=== PATIENT | female | born 1955 | race Caucasian/White ===

== ENCOUNTER 2020-04-01 13:37 | Outpatient (REF) | payer BC, SELFPAY ==
[2020-04-01 15:40] LABS: TSH reflex Free T4 0.17 mIU/mL (0.32-4.0)
[2020-04-01 16:39] LABS: Free T4 (Free Thyroxine) 1.54 ng/dL (0.71-1.85)
== END 2020-04-01 13:38 | disposition home or self-care (01) ==
LOC: HO.LAB 13:37
PROVIDERS: PCP Physician Assistant; Visit Provider Physician Assistant
DX: E03.9 Hypothyroidism, unspecified (principal)
CPT/HCPCS: 84439; 84443

== ENCOUNTER 2020-06-29 11:09 | Inpatient (IN) | payer BC, SELFPAY ==
[2020-06-29] VITALS (12 sets, daily range): BP systolic 73–135; BP diastolic 50–86; PULSE 87–142; RESP 16–28; TEMP 36.6–37; O2SAT 93–99; BMI 32.4
--- NOTE | ~2020-06-29 | US_ITS ---
EXAMINATION: ULTRASOUND-GUIDED DIAGNOSTIC PARACENTESIS. CLINICAL INFORMATION: Diffuse ascites, bilateral pleural effusion. Question cirrhosis. Acute abdominal pain. Evaluate for subacute bacterial peritonitis COMPARISON: Chest CT performed earlier today at 2:00 PM. TECHNIQUE: Following explaining ultrasound-guided paracentesis procedure, benefits and risk, a written consent was obtained. Patient was placed supine on ICU bed and preliminary ultrasound was obtained in the right upper and lower quadrant regions. After observing smaller fluid in the right perihepatic space, a marker was placed in the skin. The marked area was cleaned and draped in usual cell manner. 1% lidocaine was injected puncture site. A 4 [place] Hypertension Diagnosticseh catheter was inserted through a small skin incision to the right perihepatic space and approximately 15 mL of clear ascites fluid was obtained with some blood clots. After no more fluid return, catheter was removed and complete hemostasis achieved at puncture site. Sterile dressing applied postprocedure. Patient tolerated procedure extremely well. FINDINGS: On preliminary ultrasound imaging there is a small right perihepatic fluid collection similar to earlier CT exam. Approximately 15 mL of clear CSF fluid was collected and sent to lab as per referring physician's orders. US/US paracentesis abd w/image IMPRESSION: Successful ultrasound-guided diagnostic paracentesis performed without immediate complications.
--- NOTE | ~2020-06-29 | CT_ITS ---
EXAMINATION: CT CHEST WITHOUT CONTRAST CT ABDOMEN AND PELVIS WITHOUT CONTRAST CLINICAL INFORMATION: Rule out pneumonia. Septic shock. COMPARISON: Radiograph from earlier today. CT of the abdomen and pelvis 06/25/2016. TECHNIQUE: Multidetector volumetric imaging was performed through the chest, abdomen and pelvis without contrast. Sagittal and coronal reformatted images were obtained on the technologist's workstation. Axial MIP volume rendering provided. This CT examination was performed using dose optimization techniques as appropriate, variously including the following: *Automated exposure control *Adjustment of mA and/or kV according to patient size (this includes techniques or standardized protocols for targeted exams where dose is matched to indication/reason for exam; i.e. extremities or head) *Use of iterative reconstruction technique DLP: 1805 mGy-cm. FINDINGS: CHEST: Lungs: The central airways are patent. Moderate left and small right pleural effusions are present. Compressive atelectasis of much of the left lower lobe. Right basilar subsegmental atelectasis. Prominence of the central vasculature. Mild subpleural reticulation. No pneumothorax. Mediastinum: Enlarged heart. Radiopaque hardware identified in the region of the left atrial appendage. No pericardial effusion. No mediastinal lymphadenopathy seen. Chest Wall/Axilla: No lymphadenopathy. No chest wall mass. Questionable area of fat necrosis in the right breast soft tissues. This is similar to prior. ABDOMEN/PELVIS: Liver, Gallbladder, Biliary Tree: Somewhat small size of the liver. Suggestion of subtle nodular Contour. There is small volume of ascites. No focal hepatic mass. Cholecystectomy. No biliary ductal dilatation. Pancreas: Unremarkable. Spleen: Unremarkable. Adrenal Glands: Unremarkable. Kidneys and Ureters: The kidneys are normal in size, shape, and attenuation. No hydronephrosis or hydroureter. Right lower pole 0.3 cm calculus is 9 cm from the posterior axillary line. Bladder: Decompressed with a Gómez catheter in place. Gastrointestinal Tract: The stomach is unremarkable. Normal caliber small bowel. There is no obstruction. Colonic diverticulosis is present without diverticulitis. No free intraperitoneal air. The appendix is unremarkable. Abdominal Wall: Prior ventral hernia repair. Rectus diastases. Diffuse anasarca. Lymphovascular Structures: Lymph nodes: Normal. Vascular: Normal caliber aorta with mild atherosclerotic calcification. Pelvic Viscera: The uterus and adnexa are unremarkable. OSSEOUS STRUCTURES: No acute or suspicious osseous abnormality. Degenerative changes throughout the spine. Degenerative changes noted in the hips. CT/CT abdomen pelvis wo con IMPRESSION: 1. Moderate left and small right pleural effusions. Associated atelectasis. No separate consolidation. There is central vascular prominence which could be associated with mild edema. 2. Small volume of ascites with diffuse anasarca. 3. Questionable nodularity of the liver contour. Correlate for cirrhosis. No suspicious lesions. 4. Nonobstructing right lower pole renal calculus.
--- NOTE | ~2020-06-29 | XR_ITS ---
EXAMINATION: CHEST 1 VIEW CLINICAL INFORMATION: Hypoxemia. COMPARISON: Multiple prior exams are reviewed. The most recent is from 07/03/2020. TECHNIQUE: An AP view of the chest is provided. FINDINGS: The cardiac silhouette is enlarged, though stable. Central venous lines are in unchanged position. There is a persistent retrocardiac infiltrate. There is superimposed mild interstitial prominence throughout both lungs, slightly decreased from prior exam. There is likely a small left pleural effusion. The osseous structures are stable. Surgical clips are identified within the right upper quadrant. XR/XR chest 1V IMPRESSION: Persistent retrocardiac airspace disease. Persistent left pleural effusion. Interval increase in mild interstitial prominence throughout both lungs.
--- NOTE | ~2020-06-29 | XR_ITS ---
EXAMINATION: XR CHEST CLINICAL INFORMATION: Line placement COMPARISON: 06/29/2020 TECHNIQUE: Frontal view of the chest was obtained. FINDINGS: Left subclavian central venous catheter is now in place terminating over the lower SVC. Lungs are well expanded. Increased small left pleural effusion. Left basilar opacity. No pneumothorax. No edema. The cardiomediastinal silhouette remains prominent. XR/XR chest 1V IMPRESSION: There is a new left subclavian central venous catheter terminating over the lower SVC. No pneumothorax. Increased small left pleural effusion with basilar opacity which could represent atelectasis or pneumonia.
--- NOTE | ~2020-06-29 | NM_ITS ---
EXAMINATION: NM LUNG IMAGE PERFUSION CLINICAL INFORMATION: Short of breath. COMPARISON: CT chest to 421 TECHNIQUE: Following intravenous administration of 3.2 mCi of technetium 99 and MAA, imaging of both lungs are obtained in multiple projections. Ventilation study was not performed. FINDINGS: There is normal perfusion seen to all segments of both lobes. No segmental, subsegmental defects seen. NM/NM pul perfusion IMPRESSION: Normal perfusion scan. Results were discussed with ICU Dr. Palafox by phone at 5:04 PM
--- NOTE | ~2020-06-29 | US_ITS ---
EXAMINATION: US VENOUS ULTRASOUND WITH DOPPLER LOWER EXTREMITY, BILATERAL CLINICAL INFORMATION: Edema. COMPARISON: Venous ultrasound lower extremities bilateral 12/11/2016. TECHNIQUE: Ultrasound of the deep veins is performed from the hip to the calf with compression sonography and color and pulse Doppler assessment. Spectral analysis with color-flow imaging is performed. FINDINGS: Edema limits study. Limited compression of vessels. RIGHT: Limited visualization of vessels. No obvious thrombus seen from groin through the calf. Biphasic vascular flow. There is a popliteal cyst measuring 2.7 x 1 x 1.3 cm. LEFT: Limited visualization of vessels. No obvious thrombus seen from groin through the calf. Biphasic vascular flow. There is no significant popliteal fossa cyst. If the patient's symptoms persist, followup ultrasound in 5 days 7 days might be of value to exclude proximal propagation from a non-visualized calf vein. US/US venous duplex LE BI IMPRESSION: Exam limited by edema. No DVT demonstrated in the bilateral lower extremity.
--- NOTE | ~2020-06-29 | XR_ITS ---
EXAMINATION: PORTABLE CHEST 1 VIEW CLINICAL INFORMATION: R IJ HD CATH PLACEMENT . COMPARISON: 07/03/2020. TECHNIQUE: Portable frontal view of the chest was obtained. FINDINGS: The lungs are hypoexpanded with basilar markings suggesting atelectasis. Small layering left effusion suspected as well. No overt edema. No pneumothorax. New right IJ central venous catheter tip near the cavoatrial junction. Left subclavian central venous catheter tip also near the cavoatrial junction. No acute bony abnormality. XR/XR chest 1V IMPRESSION: New right IJ central venous catheter tip near the expected cavoatrial junction. No pneumothorax. Span lungs with basilar atelectatic changes and small layering left effusion.
--- NOTE | 2020-06-29 11:42 | ECG_ITS ---
Test Reason : ATRIAL FIBRILLATION Blood Pressure : / mmHG Vent. Rate : 129 BPM Atrial Rate : 131 BPM P-R Int : 000 ms QRS Dur : 088 ms QT Int : 398 ms P-R-T Axes : 000 -58 -06 degrees QTc Int : 583 ms Atrial fibrillation Left axis deviation Inferior infarct (cited on or before 30-SEP-2017) Possible Anterior infarct (cited on or before 30-SEP-2017) Abnormal ECG When compared with ECG of 26-FEB-2019 20:20, Afib present Premature ventricular complexes present Referred By: Deann Cramer Electronically Signed By:Jhonny Kaur
--- NOTE | 2020-06-29 11:42 | XR_ITS ---
EXAMINATION: XR CHEST CLINICAL INFORMATION: Cough. COMPARISON: Chest 02/26/2019 TECHNIQUE: Frontal view of the chest was obtained. FINDINGS: The lungs are well-expanded bilateral perihilar patchy opacities suggestive of developing infiltrates. No consolidation seen. There is no pleural effusion. The heart size is enlarged. Perivascular is normal. There is moderate spondylosis dorsal spine. XR/XR chest 1V IMPRESSION: Diffuse bilateral patchy groundglass opacities suspicious of developing infiltrates.
--- NOTE | 2020-06-29 11:46 | ED_ITS ---
HPI - General Adult General Chief complaint: Arrhythmia/Palpitations Stated complaint: Rapid A-Fib Time Seen by Provider: 06/29/20 11:41 Source: patient and EMS Mode of arrival: EMS Limitations: no limitations History of Present Illness HPI narrative: 65 years old history of atrial fibrillation controlled with metop rolol 100 mg daily by mouth, patient also have which man device placed in her in the left atrium no anticoagulation therapy, patient has been coughing for the past 2 weeks, patient went to walk-in urgent care and she was advised to come here because she was found to have rapid atrial fibrillation, patient admitted that she did not take her medication this morning. Patient has been coughing for 2 weeks patient usually around this time a year gets bronchitis. Patient has no chest pain, no shortness of breath, not feeling palpitation. Related Data Home Medications Medication Instructions Recorded Confirmed albuterol sulfate 90 mcg/actuation 2 puff INHALATION Q6H PRN 04/30/20 04/30/20 aerosol inhaler aspirin 325 mg tablet 325 mg PO DAILY 04/30/20 04/30/20 cyanocobalamin (vitamin B-12) mcg IM 04/30/20 04/30/20 1,000 mcg/mL injection solution furosemide 20 mg tablet mg PO 04/30/20 04/30/20 lisinopril 2.5 mg tablet 2.5 mg PO DAILY 04/30/20 04/30/20 metoprolol succinate 100 mg 100 mg PO DAILY 04/30/20 04/30/20 tablet,extended release 24 hr spironolactone 25 mg tablet mg PO 04/30/20 04/30/20 ursodiol 300 mg capsule 600 mg PO TID 04/30/20 04/30/20 Previous Rx's Medication Instructions Recorded hydroxyzine HCl 25 mg tablet 25 mg PO Q6H PRN 30 Days #120 tab 04/30/20 levothyroxine 175 mcg tablet 175 mcg PO DAILY 30 Days #30 tab 04/30/20 lorazepam 0.5 mg tablet 0.5 mg PO DAILY PRN 15 Days #15 tab 06/18/20 Allergies Allergy/AdvReac Type Severity Reaction Status Date / Time Erythromycin Allergy Unknown nausea and Verified 03/18/20 16:13 vomiting erythromycin base Allergy Unknown UNKNOWN Verified 03/18/20 16:13 [ERYTHROMYCIN BASE] latex [LATEX] Allergy Unknown UNKNOWN Verified 03/18/20 16:13 obeticholic acid [Ocaliva] Allergy Unknown syncope Verified 03/18/20 16:13 Sulfa (Sulfonamide Allergy Unknown nausea and Verified 03/18/20 16:13 Antibiotics) vomiting, vomiting sulfamethoxazole Allergy Unknown UNKNOWN Verified 03/18/20 16:13 [From BACTRIM] trimethoprim [From BACTRIM] Allergy Unknown UNKNOWN Verified 03/18/20 16:13 adhesive tape [TAPE,ADHESIVE] AdvReac Unknown RASH Verified 03/18/20 16:13 Erythrocin Allergy Unknown vomiting Uncoded 08/22/18 00:00 Latex Allergy Unknown rash Uncoded 01/14/20 00:00 surgical tape AdvReac Unknown rash Uncoded 01/14/20 00:00 Review of Systems Review of Systems: All other systems are reviewed and are negative Constitutional: Reports as per HPI and Reports no additional constitutional complaints Eyes: Reports as per HPI and Reports no additional eye complaints Reports system reviewed and no additional complaints, except as documented Cardiovascular: Reports as per HPI and Reports no additional cardiovascular complaints Respiratory: Reports as per HPI and Reports no additional respiratory complaints Gastrointestinal: Reports as per HPI and Reports no additional gastrointestinal complaints Genitourinary: Reports no additional female genitourinary complaints Musculoskeletal: Reports no additional musculoskeletal complaints Skin/Breast: Reports system reviewed and no additional complaints, except as docu Psychiatric: Reports no additional psychiatric complaints Endocrine: Reports no additional endocrine complaints Hematologic/Lymphatic: Reports no additional hematologic/lymphatic complaints Allergic/Immunologic: Reports no additional allergic/immunologic complaints Reports system reviewed and no additional complaints, except as documented and Reports Abnormal speech present [facility] Past Medical History Medical History Asthma H/O chronic heart failure Social History Social History Smoking Status: Never smoker Smoked in Last 30 Days: No Use of substances other than those prescribed or required for medical reasons: No Advance Directives: No Advance Directives Information Provided: No Physical Exam Vital Signs: Vital Signs: Last Vital Signs Temp 98.6 F 06/29/20 12:00 Pulse 95 06/29/20 13:52 Resp 20 06/29/20 13:05 BP 99/64 06/29/20 13:52 Pulse Ox 94 06/29/20 13:05 Body Mass Index 32.4 Vital signs have been reviewed as normal and appeared to be correct. Blood pressure normal. Heart rate tachycardia. Respiration rate normal. Temperature normal. Oxygen saturation normal. Appearance: Alert. Oriented X3. No acute distress. Pale skin Head: Normal external exam. Normocephalic. Atraumatic. No [place] signs noted. No raccoon eyes noted Eyes: PERRLA. EOMI. Conjunctiva and sclera normal. Eyelids normal. ENT: EAC normal. TM's Normal. Pharynx normal. Uvula midline. Moist mucous membranes. No trismus noted. No drooling noted. No muffled voice noted. Neck: Normal inspection. Neck supple. FROM. No adenopathy. Thyroid Normal. No meningeal signs. No neck mass noted. CVS: Rapid irregular heart rate. Heart sound normal. No murmurs noted. Pulses normal throughout. Respiratory: No respiratory distress. Painless inspiration. Breath sounds normal. Mild diffuse expiratory wheezes, no rales/rhonchi noted. Chest nontender. No accessory muscle usage noted or decreased air movement noted. Abdomen: Soft and nontender. Bowel sounds normal in all 4 quadrants. No distention noted. No organomegaly noted. No visible injury noted. Rectal: Black tarry stools with guaiac positive for blood Back: No CVA tenderness. Full range of motion noted. Skin: Skin warm and dry. Appear pale overall Extremities: No lower extremity edema. Extremities exhibit normal range of motion. Extremities nontender. Neuro: Oriented X 3. No motor deficit. No sensory deficit. Reflexes normal. Course Course Course Narrative: Assessment and plan. 65-year-old female came in with few weeks of coughing and found to be in rapid AFib. 1. Rapid AFib: Patient was received 100 mg of metoprolol (patient's home medication) patient did not take it this morning it seemed like is controlling her rapid AFib now heart rate is in the 90s. 2. Cough: Early pneumonia on the chest x-ray, sepsis criteria was not met will cover with Levaquin. 3. Trending CBC results showed the patient progressively getting anemic today hemoglobin is 8 which is lower than patient's baseline usually at 11, patient declined any source of bleeding, will rectal exam was performed patient has black tarry stool that is positive for guaiac will start the patient on Protonix admit for GI consultation. Medical Decision Making Lab Data Lab results reviewed: Yes I reviewed the patient's lab results. Result diagrams: 06/29/20 11:57 06/29/20 11:57 Labs: Lab Results 06/29/20 06/29/20 06/29/20 Range/Units 11:57 11:57 11:57 WBC 3.0 L (4.8-10.8) X10*3/uL RBC 3.14 L (4.20-5.50) X10*6/uL Hgb 7.9 L (12.0-16.0) g/dl Hct 26.0 L (37-47) % MCV 82.8 (80-98) fL MCH 25.2 L (27.0-33.0) pg MCHC 30.4 L (31.0-35.0) g/dl RDW 15.4 (11.0-16.0) % Plt Count 73 L (160-400) X10*3/uL MPV 10.1 (9.4-12.3) fL Immature Gran % (Auto) 0.3 (0.0-0.4) % Neut % (Auto) 64.1 (45-73) % Lymph % (Auto) 20.2 (20-40) % [place] % (Auto) 10.1 (2-11) % Eos % (Auto) 4.0 (0-4) % Baso % (Auto) 1.3 (0-2) % Lymph # (Auto) 0.6 L (1.2-4.9) X10*3/uL [place] # (Auto) 0.3 (0.1-1.2) X10*3/uL Eos # (Auto) 0.1 (0.0-0.4) X10*3/uL Baso # (Auto) 0.0 (0.0-0.2) X10*3/uL Abs Immat Gran (auto) 0.01 (0.00-0.03) X10*3/uL Absolute Neuts (auto) 1.9 L (2.0-8.3) X10*3/uL Absolute Nucleated RBC 0.000 (0.0-0.012) X10*3/uL Nucleated RBC % (auto) 0.0 (0.0-0.2) /100WBC Smear Tech's Comments VERIFIED Sodium 137 (135-145) mmol/L Potassium 3.9 (3.3-5.1) mmol/L Chloride 105 (96-108) mmol/L Carbon Dioxide 23 (22-29) mmol/L Anion Gap 13 (12-20) BUN 21 H (9-16) mg/dL Creatinine 0.92 (0.5-1.4) mg/dL Estim Creat Clear Calc 63.0 Estimated GFR > 60 Random Glucose 127 H (60-115) mg/dL Calcium 8.1 L (8.4-10.2) mg/dL Stool Occult Blood (NEG) COVID-19 (MARISA) Negative (Negative) COVID-19 Clin Com See Note 06/29/20 Range/Units 14:02 WBC (4.8-10.8) X10*3/uL RBC (4.20-5.50) X10*6/uL Hgb (12.0-16.0) g/dl Hct (37-47) % MCV (80-98) fL MCH (27.0-33.0) pg MCHC (31.0-35.0) g/dl RDW (11.0-16.0) % Plt Count (160-400) X10*3/uL MPV (9.4-12.3) fL Immature Gran % (Auto) (0.0-0.4) % Neut % (Auto) (45-73) % Lymph % (Auto) (20-40) % [place] % (Auto) (2-11) % Eos % (Auto) (0-4) % Baso % (Auto) (0-2) % Lymph # (Auto) (1.2-4.9) X10*3/uL [place] # (Auto) (0.1-1.2) X10*3/uL Eos # (Auto) (0.0-0.4) X10*3/uL Baso # (Auto) (0.0-0.2) X10*3/uL Abs Immat Gran (auto) (0.00-0.03) X10*3/uL Absolute Neuts (auto) (2.0-8.3) X10*3/uL Absolute Nucleated RBC (0.0-0.012) X10*3/uL Nucleated RBC % (auto) (0.0-0.2) /100WBC Smear Tech's Comments Sodium (135-145) mmol/L Potassium (3.3-5.1) mmol/L Chloride (96-108) mmol/L Carbon Dioxide (22-29) mmol/L Anion Gap (12-20) BUN (9-16) mg/dL Creatinine (0.5-1.4) mg/dL Estim Creat Clear Calc Estimated GFR Random Glucose (60-115) mg/dL Calcium (8.4-10.2) mg/dL Stool Occult Blood POS (NEG) COVID-19 (MARISA) (Negative) COVID-19 Clin Com Imaging Data Chest x-ray: Radiologist's impression: Diffuse bilateral patchy groundglass opacities suspicious of developing infiltrates. ECG Data Interpretation: Atrial fibrillation at 129 beats per minutes, left axis deviation, otherwise normal intervals, no acute ST-T changes. EKG 2. Atrial fibrillation with premature ventricular complex at 97 beats per minutes, no acute ST-T changes. Discharge Plan Discharge Clinical Impression: Anemia, A-fib, Acute GI bleeding, Pneumonia Patient Disposition: Admitted As Inpatient Prescriptions: No Action lorazepam 0.5 mg tablet 0.5 mg PO DAILY PRN (Reason: anxiety) 15 Days Qty: 15 RF: 1 cyanocobalamin (vitamin B-12) 1,000 mcg/mL solution IM RF: 0 metoprolol succinate 100 mg tablet extended release 24 hr 100 mg PO DAILY RF: 0 lisinopril 2.5 mg tablet 2.5 mg PO DAILY RF: 0 furosemide 20 mg tablet PO RF: 0 spironolactone 25 mg tablet PO RF: 0 ursodiol 300 mg capsule 600 mg PO TID RF: 0 albuterol sulfate 90 mcg/actuation HFA aerosol inhaler 2 puff inhalation Q6H PRNRF: 0 aspirin 325 mg tablet 325 mg PO DAILY RF: 0 hydroxyzine HCl 25 mg tablet 25 mg PO Q6H PRN (Reason: itching) 30 Days Qty: 120 RF: 1 levothyroxine 175 mcg tablet 175 mcg PO DAILY 30 Days Qty: 30 RF: 3
[2020-06-29] MEDS: Metoprolol Succinate ER 50 MG TAB.ER.24H 150 MG PO (11:58)
[2020-06-29 12:06] LABS: Basophils Percent Auto 1.3 % (0-2); Eosinophils Absolute Auto 0.1 X10*3/uL (0.0-0.4); Hemoglobin 7.9 g/dl (12.0-16.0); Imm Gran Abs Auto 0.01 X10*3/uL (0.00-0.03); Imm Gran Pct Auto 0.3 % (0.0-0.4); Lymphocytes Absolute Auto 0.6 X10*3/uL (1.2-4.9); Lymphocytes Percent Auto 20.2 % (20-40); MANUAL DIFF FLAG SCAN; Mean Corpuscular HGB Conc 30.4 g/dl (31.0-35.0); Mean Corpuscular Hemoglobin 25.2 pg (27.0-33.0); Mean Corpuscular Volume 82.8 fL (80-98); Mean Platelet Volume 10.1 fL (9.4-12.3); Monocytes Absolute Auto 0.3 X10*3/uL (0.1-1.2); Monocytes Percent Auto 10.1 % (2-11); Neutrophils Absolute Auto 1.9 X10*3/uL (2.0-8.3); Neutrophils Percent Auto 64.1 % (45-73); Red Blood Count 3.14 X10*6/uL (4.20-5.50); Red Cell Distribution Width 15.4 % (11.0-16.0); SCAN SMEAR FLAG 1
[2020-06-29 12:20] LABS: COVID-19 Test Negative (Negative)
[2020-06-29 12:28] LABS: Platelet Count 73 X10*3/uL (160-400)
[2020-06-29 12:29] LABS: SLIDE REVIEW VERIFIED
[2020-06-29 12:48] LABS: Anion Gap 13 (12-20); Blood Urea Nitrogen 21 mg/dL (9-16); Calcium 8.1 mg/dL (8.4-10.2); Carbon Dioxide 23 mmol/L (22-29); Chloride 105 mmol/L (96-108); Estimated Glomerular Filt Rate > 60; Glucose Random 127 mg/dL (60-115); Potassium 3.9 mmol/L (3.3-5.1); Sodium 137 mmol/L (135-145)
--- NOTE | 2020-06-29 14:13 | ECG_ITS ---
Test Reason : A FIB Blood Pressure : / mmHG Vent. Rate : 102 BPM Atrial Rate : 115 BPM P-R Int : 000 ms QRS Dur : 106 ms QT Int : 406 ms P-R-T Axes : 000 -58 071 degrees QTc Int : 529 ms Atrial fibrillation with rapid ventricular response Low voltage QRS Left anterior fascicular block Cannot rule out Inferior infarct (masked by fascicular block?) , age undetermined Cannot rule out Anterior infarct , age undetermined Prolonged QT Abnormal ECG When compared to the previous EKG of Premature ventricular complexes are no longer Present Referred By: Deann Cramer Electronically Signed By:JACOB LUCAS MD
[2020-06-29 14:20] LABS: OBS Int Ctl Valid YES; OBS1 POS (NEG)
[2020-06-29] MEDS: Pantoprazole Sodium 40 MG/10 ML VIAL IVPUSH (15:06)
[2020-06-29] MEDS: levoFLOXacin/D5W 500 MG/100 ML PIGGYBACK 100 MG IV (15:06)
[2020-06-29 15:22] LABS: Lactic Acid 1.2 mmol/L (0.5-2.0)
[2020-06-29 18:06] LABS: Glucose, Whole Blood 122 mg/dL (60-115)
--- NOTE | 2020-06-29 18:43 | PC.NURSE ---
GASTROENTEROLOGY CONSULT CALLED TO [facility] PER INSTRUCTIONS OF HOSPITALIST [facility]. CALLED @[phone]. ANSWERING SERVICE INFORMS THIS US THAT THE MESSAGE WILL BE HELD UNTIL TOMORROW MORNING.
--- NOTE | 2020-06-29 19:23 | PC.NURSE ---
MESSAGE SENT TO [facility] [employer] REGARDING DROP IN BP WITH BLOOD TRANSFUSION AND PATIENT EXPERIENCING LIGHT HEADEDNESS..
[2020-06-29] MEDS: 0.9 % Sodium Chloride 500 ML 50 ML IV (20:20)
--- NOTE | 2020-06-29 20:55 | PC.NURSE ---
CALLED PHARMACY FOR URSODIOL. NOT STOCKED IN ED.
[2020-06-29 21:05] LABS: Glucose, Whole Blood 131 mg/dL (60-115)
[2020-06-29] MEDS: UrsodioL 300 MG CAPSULE 600 MG PO (21:31)
[2020-06-29] MEDS: LORazepam 0.5 MG TABLET PO (23:45)
--- NOTE | 2020-06-29 23:48 | PC.NURSE ---
MEDICATED CHARTED PER PATIENT REQUEST. WATCHING TV. NO APPARENT DISTRESS. OFFERS NO COMPLAINTS AT THIS TIME. AFIB ON NURSERY RN. GIVEN KENDRA CRACKERS AND ALIX ERMIAS PER PATIENT REQUEST.
[2020-06-30] VITALS (12 sets, daily range): BP systolic 92–118; BP diastolic 66–76; PULSE 86–107; RESP 16–22; TEMP 36–37.1; O2SAT 92–98
--- NOTE | 2020-06-30 00:13 | PC.NURSE ---
AMBULATED TO BATHROOM WITH NO GAIT ABNORMALITIES. WHEN BACK IN BED PATIENT REPORT FEELING WINDED.
--- NOTE | 2020-06-30 04:26 | PC.NURSE ---
PATIENT REPORTING NAUSEA. NO MEDS AVAILABLE. MESSAGE SENT TO DR CHO.
[2020-06-30] MEDS: Metoclopramide HCl 10 MG/2 ML VIAL 5 MG IVPUSH (05:30)
--- NOTE | 2020-06-30 09:29 | PC.NURSE ---
vs that were enteredat 0927 on this pt is for another pt.
[2020-06-30 09:36] LABS: MANUAL DIFF FLAG NO
[2020-06-30 09:41] LABS: Basophils Absolute Auto 0.1 X10*3/uL (0.0-0.2); Eosinophils Absolute Auto 0.2 X10*3/uL (0.0-0.4); Eosinophils Percent Auto 3.5 % (0-4); Hematocrit 29.9 % (37-47); Hemoglobin 9.2 g/dl (12.0-16.0); Imm Gran Abs Auto 0.02 X10*3/uL (0.00-0.03); Imm Gran Pct Auto 0.4 % (0.0-0.4); Lymphocytes Absolute Auto 0.9 X10*3/uL (1.2-4.9); Lymphocytes Percent Auto 17.7 % (20-40); Mean Corpuscular HGB Conc 30.8 g/dl (31.0-35.0); Mean Corpuscular Hemoglobin 25.6 pg (27.0-33.0); Mean Corpuscular Volume 83.3 fL (80-98); Mean Platelet Volume 9.9 fL (9.4-12.3); Monocytes Absolute Auto 0.5 X10*3/uL (0.1-1.2); Monocytes Percent Auto 10.5 % (2-11); Neutrophils Absolute Auto 3.3 X10*3/uL (2.0-8.3); Neutrophils Percent Auto 66.9 % (45-73); Platelet Count 98 X10*3/uL (160-400); Red Blood Count 3.59 X10*6/uL (4.20-5.50); Red Cell Distribution Width 15.6 % (11.0-16.0); White Blood Count 4.9 X10*3/uL (4.8-10.8)
[2020-06-30 10:10] LABS: Anion Gap 11 (12-20); Blood Urea Nitrogen 27 mg/dL (9-16); Carbon Dioxide 24 mmol/L (22-29); Chloride 105 mmol/L (96-108); Estimated Glomerular Filt Rate 59; Glucose Random 133 mg/dL (60-115); Potassium 3.9 mmol/L (3.3-5.1); Sodium 136 mmol/L (135-145)
[2020-06-30] MEDS: Metoprolol Succinate ER 100 MG TAB.ER.24H PO (11:06)
[2020-06-30] MEDS: UrsodioL 300 MG CAPSULE 600 MG PO ×3 (11:07→21:53)
[2020-06-30] MEDS: Omeprazole 20 MG CAPSULE.DR PO (11:07)
[2020-06-30] MEDS: PARoxetine HCL 40 MG TABLET PO (11:07)
[2020-06-30] MEDS: Spironolactone 25 MG TABLET 50 MG PO (11:07)
[2020-06-30] MEDS: Levothyroxine Sodium 175 MCG TABLET PO (11:08)
[2020-06-30] MEDS: 0.9 % Sodium Chloride Flush 3 ML SYRINGE IVFLUSH ×5 (11:11→21:53)
[2020-06-30 11:34] LABS: SARS COV2 IgG Negative (Negative)
[2020-06-30 11:50] LABS: Glucose, Whole Blood 119 mg/dL (60-115)
[2020-06-30 12:25] LABS: MANUAL DIFF FLAG NO
[2020-06-30 12:26] LABS: Basophils Absolute Auto 0.1 X10*3/uL (0.0-0.2); Basophils Percent Auto 1.5 % (0-2); Eosinophils Absolute Auto 0.3 X10*3/uL (0.0-0.4); Eosinophils Percent Auto 3.9 % (0-4); Hematocrit 31.9 % (37-47); Hemoglobin 9.8 g/dl (12.0-16.0); Imm Gran Abs Auto 0.02 X10*3/uL (0.00-0.03); Imm Gran Pct Auto 0.3 % (0.0-0.4); Lymphocytes Absolute Auto 1.6 X10*3/uL (1.2-4.9); Lymphocytes Percent Auto 23.2 % (20-40); Mean Corpuscular HGB Conc 30.7 g/dl (31.0-35.0); Mean Corpuscular Hemoglobin 25.4 pg (27.0-33.0); Mean Corpuscular Volume 82.6 fL (80-98); Mean Platelet Volume 10.2 fL (9.4-12.3); Monocytes Absolute Auto 0.7 X10*3/uL (0.1-1.2); Monocytes Percent Auto 9.8 % (2-11); Neutrophils Absolute Auto 4.1 X10*3/uL (2.0-8.3); Neutrophils Percent Auto 61.3 % (45-73); Platelet Count 126 X10*3/uL (160-400); Red Blood Count 3.86 X10*6/uL (4.20-5.50); Red Cell Distribution Width 15.6 % (11.0-16.0); White Blood Count 6.7 X10*3/uL (4.8-10.8)
--- NOTE | 2020-06-30 13:25 | PC.NURSE ---
pT UP TO COMMODE. SLOW BUT STEADY. LSCTA. DENIES DIZZINESS WITH MOVEMENT TO COMMODE BUT DID HAVE SOB AND SOMELIGHTHEADEDNESS. CONTROLLED A FIB ON MONITOR IN 90'S. AX0X3. 2L NC APPLIED FOR COMFORT. ROOM sAo2 IS 92% AT REST.
[2020-06-30] MEDS: levoFLOXacin/D5W 500 MG/100 ML PIGGYBACK 100 MG IV (13:35)
--- NOTE | 2020-06-30 13:57 | PC.NURSE ---
left hand iv removed. was leaking around the iv cath itself.
--- NOTE | 2020-06-30 15:23 | MHC.CM.PN ---
PT IN ISOLATION AREA. CM ATTEMPTED TO CONTACT PTS , [facility] ([phone]). RESPECTIVELY, THE FIRST CALL WENT TO AND THE SECOND WAS INCORRECT AND WENT TO A BUSINESS. CM WILL ATTEMPT TO REACH PT/ AGAIN AT A LATER TIME. PER EMR, PT LIVES WITH HER AND IS INDEPENDENT WITH CARE. PTS PCP IS ARELY MOHR AND SHE HAS A HCP ON FILE. DC PLAN TBD PENDING HOSPITAL/TREATMENT COURSE
--- NOTE | 2020-06-30 15:31 | PC.NURSE ---
reports another bout of vomiting, GI doc Benjamin was in to see patient. plan for endoscope in am, NPO at midnight. pt aware
[2020-06-30] MEDS: ondansetron HCL 4 MG/2 ML VIAL IVPUSH (15:33)
--- NOTE | 2020-06-30 16:14 | HO.PM.IMPN ---
Subjective Subjective Date of Service: 07/01/20 Interval History: stool is not as dark no abd pain no hematochezia c/o cough, now going on 2 wk Physical Exam Vital Signs: Vital Signs: Last Vital Signs Temp 97.6 F 06/30/20 15:31 Pulse 86 06/30/20 15:31 Resp 18 06/30/20 15:31 BP 104/73 06/30/20 15:31 Pulse Ox 98 06/30/20 15:31 Body Mass Index 32.4 Gen: in no acute distress HEENT: sclera anicteric, moist mucus membranes Neck: supple Lungs: clear to auscultation bilaterally Heart: irregularly irregular Abd: soft, non-tender, non-distended Ext: no edema Skin: warm/well-perfused Neuro: alert and oriented x3, no focal findings Psych: appropriate affect Objective Data Current Medications Generic Name Dose Route Start Last Admin Trade Name Freq PRN Reason Stop Dose Admin Acetaminophen 650 mg 06/29/20 19:32 Acetaminophen 325 Mg Tablet PO Q4H PRN pain or fever Albuterol Sulfate 2 puff 06/29/20 16:41 Albuterol Sulfate 90 Mcg 8 Gm Inhaler INHALE Q6H PRN Cough Benzonatate 100 mg 06/30/20 10:49 Benzonatate 100 Mg Capsule PO TID PRN Cough Cyanocobalamin 1,000 mcg 07/03/20 10:00 Cyanocobalamin (Vitamin B-12) 1,000 Mcg/Ml Vial IM Q30D [facility] Guaifenesin/Dextromethorphan 5 ml 06/30/20 10:49 Guaifenesin Dm 100/10/5 Ml 5 Ml Syrup PO Q4H PRN cough Hydroxyzine HCl 25 mg 06/29/20 16:41 Hydroxyzine Hcl 25 Mg Tablet PO Q6H PRN itching Levofloxacin 500 mg in 100 mls @ 100 mls/hr 06/30/20 14:00 06/30/20 15:47 Levaquin IV Infused Q24H [facility] Infusion Insulin Human Lispro 0 unit 06/29/20 21:00 06/30/20 13:19 Insulin Lispro 100 Unit/Ml 3 Ml Vial SUBCUT Not Given QIDACHS [facility] Protocol Levothyroxine Sodium 175 mcg 06/30/20 09:00 06/30/20 11:08 Levothyroxine Sodium 175 Mcg Tablet PO 175 mcg DAILY RADHA Administration Lorazepam 0.5 mg 06/29/20 16:41 06/29/20 23:45 Lorazepam 0.5 Mg Tablet PO 0.5 mg DAILY PRN Administration anxiety Metoclopramide HCl 5 mg 06/30/20 04:33 06/30/20 05:30 Metoclopramide Hcl 10 Mg/2 Ml Vial IVPUSH 5 mg ONCE PRN Administration Nausea and Vomiting Metoprolol Succinate 100 mg 06/30/20 09:00 06/30/20 11:06 Metoprolol Succinate Er 100 Mg Tab.Er.24h PO 100 mg DAILY RADHA Administration Protocol Omeprazole 20 mg 06/30/20 06:30 06/30/20 11:07 Omeprazole 20 Mg Capsule.Dr PO 20 mg DAILY@0630 RADHA Administration Ondansetron HCl 4 mg 06/30/20 13:40 06/30/20 15:33 Ondansetron Hcl 4 Mg/2 Ml Vial IVPUSH 4 mg Q8H PRN Administration Nausea Paroxetine HCl 40 mg 06/30/20 09:00 06/30/20 11:07 Paroxetine Hcl 40 Mg Tablet PO 40 mg DAILY RADHA Administration Sodium Chloride 3 ml 06/30/20 00:00 06/30/20 11:11 0.9 % Sodium Chloride Flush 3 Ml Syringe IVFLUSH 3 ml QSHIFT RADHA Administration Spironolactone 50 mg 06/30/20 09:00 06/30/20 11:07 Spironolactone 25 Mg Tablet PO 50 mg DAILY RADHA Administration Protocol Ursodiol 600 mg 06/29/20 21:00 06/30/20 11:07 Ursodiol 300 Mg Capsule PO 600 mg TID RADHA Administration Labs CBC & Chem 7: 07/01/20 06:02 07/01/20 06:02 Assessment and Plan (1) Acute GI bleeding: Problem details: S/p 1 unit PRBC 06/29/20 Status: Acute (2) Pneumonia: Problem details: On levaquin Status: Acute Assessment and Plan: hosp d#2 65yo F with PBC on transplant list, persistent AF s/p Watchman device, asthma admitted for GI bleed, ground glass pneumonia # GI bleed on ASA - GI consult [[facility] out[facility]] pending, hold ASA # acute blood loss anemia - stable s/p 1u pRBCs transfused # ground-glass pneumonia - not hypoxic. initial COVID PCR negative; IgG negative. check respiratory pathogen panel. levofloxacin d#2. follow BCx, Legionella UAg, trend PCT # AF - continue metoprolol succinate; hold ASA # chronic HFrEF - continue spironolactone + metoprolol succinate # PBC - continue ursodiol # DM2 - correction-dose lispro # hypothyroidism - continue LT4 # mood disorder - continue paroxetine # VTE ppx - SCDs
--- NOTE | 2020-06-30 17:03 | PC.NURSE ---
floor called/. joao unable at this time.
--- NOTE | 2020-06-30 17:22 | PC.NURSE ---
no change in assessment. has been up to commode mult times without diff. isn't urinating much. a fib onmonitor. remains pale. awaits transfer to room
[2020-06-30 17:28] LABS: Procalcitonin 0.05 ng/mL
--- NOTE | 2020-06-30 17:31 | PC.NURSE ---
rn to rn with august on [facility]
--- NOTE | 2020-06-30 17:43 | CONS_ITS ---
DATE OF SERVICE: 06/30/2020 REFERRING PHYSICIAN: Guy Bartlett MD REASON FOR CONSULTATION: Black stool and anemia. HISTORY OF PRESENT ILLNESS: The patient is a 65-year-old woman, who was admitted to the hospital after presenting to the emergency room with complaints of cough. She was noted to be anemic and reportedly had black stool on examination. Hematocrit on admission was 26, which was down from 31 in November. She received 1 unit of packed red blood cells with improvement in her hematocrit to 31.9. She reports black stools over a period of 3 days prior to admission. She denies any hematemesis. She has a history of cirrhosis and is followed at the [facility] and has been listed for transplant. Her last endoscopy was in September of 2017 and showed gastric antral vascular ectasia as well as portal gastropathy. No esophageal varices were identified. She also had colonoscopy at the same time because of iron-deficiency anemia, showing diverticulosis and internal hemorrhoids. PAST MEDICAL HISTORY: 1. Primary biliary cirrhosis with hepatic cirrhosis. 2. Hypothyroidism. 3. Asthma/COPD. 4. Atrial fibrillation and Watchman device placement. 5. Congestive heart failure. 6. Anxiety. 7. COPD. 8. Cholecystectomy. 9. Umbilical hernia repair. 10. Reduction mammoplasty. 11. Cataracts. CURRENT MEDICATIONS: Her current medication list is reviewed in the chart. ALLERGIES: MULTIPLE ALLERGIES ARE REVIEWED. FAMILY HISTORY: This is reviewed with the patient and is noncontributory. SOCIAL HISTORY: There is no current tobacco, alcohol, or substance abuse. REVIEW OF SYSTEMS: SKIN: No pruritus. HEENT: Negative. CARDIOPULMONARY: She denies shortness of breath or chest pain. GASTROINTESTINAL: As above. GENITOURINARY: Negative. NEUROPSYCHIATRIC: Negative. PHYSICAL EXAMINATION: GENERAL: Shows a pleasant female, sitting comfortably in bed. VITAL SIGNS: Reviewed in the electronic medical record and are stable. SKIN: Anicteric. HEENT: No scleral icterus. NECK: Without lymphadenopathy or thyromegaly. LUNGS: Clear. HEART: An irregular S1, S2. No murmur. ABDOMEN: Soft without focal masses or tenderness. Bowel sounds are present. No organomegaly is noted. EXTREMITIES: Without edema. IMPRESSION: Anemia with black stools. This appears consistent with an upper GI bleed, possibly from gastric antral vascular ectasia or from portal hypertensive gastropathy. I recommended today that she undergo upper endoscopy. This will be arranged for tomorrow. She understands risks and benefits and agrees to proceed. I would recommend monitoring her hematocrit and checking an INR. MD DARIO Galindo/DAV / [id number]
[2020-06-30 21:31] LABS: Glucose, Whole Blood 138 mg/dL (60-115)
[2020-07-01] VITALS (13 sets, daily range): BP systolic 76–101; BP diastolic 48–65; PULSE 93–120; RESP 16–20; TEMP 36–36.7; O2SAT 93–99; BMI 32.4
[2020-07-01] MEDS: Pantoprazole Sodium 40 MG/10 ML VIAL IVPUSH (06:20)
[2020-07-01 06:21] LABS: MANUAL DIFF FLAG NO
[2020-07-01 06:29] LABS: Basophils Percent Auto 0.3 % (0-2); Hematocrit 31.3 % (37-47); Hemoglobin 9.2 g/dl (12.0-16.0); Imm Gran Abs Auto 0.04 X10*3/uL (0.00-0.03); Imm Gran Pct Auto 0.5 % (0.0-0.4); Lymphocytes Percent Auto 13.1 % (20-40); Mean Corpuscular HGB Conc 29.4 g/dl (31.0-35.0); Mean Corpuscular Volume 85.1 fL (80-98); Mean Platelet Volume 10.3 fL (9.4-12.3); Monocytes Absolute Auto 0.8 X10*3/uL (0.1-1.2); Monocytes Percent Auto 10.8 % (2-11); Neutrophils Absolute Auto 5.6 X10*3/uL (2.0-8.3); Neutrophils Percent Auto 75.3 % (45-73); Platelet Count 134 X10*3/uL (160-400); Red Blood Count 3.68 X10*6/uL (4.20-5.50); White Blood Count 7.4 X10*3/uL (4.8-10.8)
[2020-07-01 06:30] LABS: INTERNATIONAL NORM RATIO 1.5 (0.9-1.1); Prothrombin Time 17.9 SEC (10.8-13.0)
[2020-07-01 06:59] LABS: Alanine Aminotransferase 27 U/L (0-31); Albumin Level 3.2 g/dL (3.5-5.0); Alkaline Phosphatase 73 U/L (39-117); Anion Gap 15 (12-20); Aspartate Amino Transferase 44 U/L (5-31); Bilirubin Total 2.3 mg/dL (0.0-1.0); Blood Urea Nitrogen 41 mg/dL (9-16); Calcium 8.1 mg/dL (8.4-10.2); Carbon Dioxide 22 mmol/L (22-29); Chloride 102 mmol/L (96-108); Creatinine Clr Calc Pharmacy 37.4; Estimated Glomerular Filt Rate 34; Glucose Random 114 mg/dL (60-115); Potassium 4.7 mmol/L (3.3-5.1); Sodium 134 mmol/L (135-145); Total Protein 7.5 g/dL (6.5-8.0)
[2020-07-01 07:41] LABS: Glucose, Whole Blood 112 mg/dL (60-115)
[2020-07-01] MEDS: 0.9 % Sodium Chloride Flush 3 ML SYRINGE IVFLUSH ×2 (08:40→23:40)
[2020-07-01] MEDS: 0.9 % Sodium Chloride 1,000 ML 100 ML IVCONT ×3 (08:40→19:35)
[2020-07-01] MEDS: Metoprolol Succinate ER 100 MG TAB.ER.24H PO (09:06)
--- NOTE | 2020-07-01 10:04 | P.CONAN_ITS ---
HPI - Anesthesia Eval Consult details Narrative: 65 yo female patient here for EGD PMFSH Past Medical History Medical History (Updated 07/01/20 @ 10:48 by Joann Gonzalez) Acute GI bleeding Afib Anemia Asthma with COPD B12 deficiency Chronic pruritus JANIE (generalized anxiety disorder) H/O chronic heart failure H/O gastroesophageal reflux (GERD) HTN (hypertension) Hypothyroidism Pneumonia Primary biliary cirrhosis Thrombocytopenia Family History Family history of problems with anesthesia: No Surgical History Surgical History (Updated 07/01/20 @ 10:40 by Joann Gonzalez) H/O bilateral cataract extraction H/O umbilical hernia repair S/P laparoscopic cholecystectomy S/P reduction mammoplasty History of Problems with Anesthesia: No Social History Social History Household Members: Spouse Housing: House Do you presently have visiting nurse or other home services: No Smoking Status: Former smoker Smoked in Last 30 Days: No Patient Interested in Nicotine Replacement: No Patient Given Instructions on How to Stop Smoking: No Second Hand Smoke Exposure: No Use of substances other than those prescribed or required for medical reasons: No Currently Displaying Signs/Symptoms of Drug Intoxication Withdrawal: No Have you been hit, kicked, punched, or otherwise hurt by someone within the past year? If so, by whom?: No Do you feel safe in your current relationship?: No Is there a partner from a previous relationship who is making you feel unsafe now?: No Are you made to feel afraid or neglected: No Advance Directives: No Advance Directives Information Provided: No Do you have thoughts of harming others: None Do you have a plan to hurt others: No Plan Recently lost weight without trying: No service: No Current occupational status: unemployed Meds Allergies Allergy/AdvReac Type Severity Reaction Status Date / Time Erythromycin Allergy Unknown nausea and Verified 03/18/20 16:13 vomiting erythromycin base Allergy Unknown UNKNOWN Verified 03/18/20 16:13 [ERYTHROMYCIN BASE] latex [LATEX] Allergy Unknown UNKNOWN Verified 03/18/20 16:13 obeticholic acid [Ocaliva] Allergy Unknown syncope Verified 03/18/20 16:13 Sulfa (Sulfonamide Allergy Unknown nausea and Verified 03/18/20 16:13 Antibiotics) vomiting, vomiting sulfamethoxazole Allergy Unknown UNKNOWN Verified 03/18/20 16:13 [From BACTRIM] trimethoprim [From BACTRIM] Allergy Unknown UNKNOWN Verified 03/18/20 16:13 adhesive tape [TAPE,ADHESIVE] AdvReac Unknown RASH Verified 03/18/20 16:13 Erythrocin Allergy Unknown vomiting Uncoded 08/22/18 00:00 Latex Allergy Unknown rash Uncoded 01/14/20 00:00 surgical tape AdvReac Unknown rash Uncoded 01/14/20 00:00 Home Medications Medication Instructions Recorded Confirmed Type albuterol sulfate 90 mcg/actuation 2 puff INHALATION Q6H PRN 04/30/20 06/29/20 History aerosol inhaler aspirin 325 mg tablet 325 mg PO DAILY 04/30/20 06/29/20 History cyanocobalamin (vitamin B-12) 1,000 mcg IM QMONTH 04/30/20 06/29/20 History 1,000 mcg/mL injection solution furosemide 20 mg tablet 20 mg PO DAILY 04/30/20 06/29/20 History lisinopril 2.5 mg tablet 2.5 mg PO DAILY 04/30/20 06/29/20 History metoprolol succinate 100 mg 100 mg PO DAILY 04/30/20 06/29/20 History tablet,extended release 24 hr spironolactone 25 mg tablet 50 mg PO DAILY 04/30/20 06/29/20 History ursodiol 300 mg capsule 600 mg PO TID 04/30/20 06/29/20 History omeprazole 20 mg PO DAILY 06/29/20 06/29/20 History paroxetine HCl 1 tab PO QAM 06/29/20 06/29/20 History Exam Exam Date and Time: July 01, 2020 1004 Height,Weight and Vital Signs: Height 5 ft 3 in Weight 83 kg Last Vital Signs Temp 98.1 F 07/01/20 07:51 Pulse 120 H 07/01/20 07:51 Resp 18 07/01/20 07:51 BP 94/60 07/01/20 07:51 Pulse Ox 93 07/01/20 07:51 Pertinent Lab Results Pertinent Lab Results: Laboratory Tests 06/29/20 06/29/20 06/29/20 11:57 11:57 11:57 WBC 3.0 L RBC 3.14 L Hgb 7.9 L Hct 26.0 L MCV 82.8 MCH 25.2 L MCHC 30.4 L RDW 15.4 Plt Count 73 L MPV 10.1 Immature Gran % (Auto) 0.3 Neut % (Auto) 64.1 Lymph % (Auto) 20.2 [place] % (Auto) 10.1 Eos % (Auto) 4.0 Baso % (Auto) 1.3 Lymph # (Auto) 0.6 L [place] # (Auto) 0.3 Eos # (Auto) 0.1 Baso # (Auto) 0.0 Abs Immat Gran (auto) 0.01 Absolute Neuts (auto) 1.9 L Absolute Nucleated RBC 0.000 Nucleated RBC % (auto) 0.0 Smear Tech's Comments VERIFIED PT INR Sodium 137 Potassium 3.9 Chloride 105 Carbon Dioxide 23 Anion Gap 13 BUN 21 H Creatinine 0.92 Estim Creat Clear Calc 63.0 Estimated GFR > 60 POC Glucose Random Glucose 127 H Lactic Acid Calcium 8.1 L Total Bilirubin AST ALT Alkaline Phosphatase Total Protein Albumin Procalcitonin Stool Occult Blood COVID-19 (MARISA) Negative COVID-19 Clin Com See Note SARS-CoV-2 IgG Ab Blood Type Antibody Screen Crossmatch 06/29/20 06/29/20 06/29/20 14:02 14:58 17:36 WBC RBC Hgb Hct MCV MCH MCHC RDW Plt Count MPV Immature Gran % (Auto) Neut % (Auto) Lymph % (Auto) [place] % (Auto) Eos % (Auto) Baso % (Auto) Lymph # (Auto) [place] # (Auto) Eos # (Auto) Baso # (Auto) Abs Immat Gran (auto) Absolute Neuts (auto) Absolute Nucleated RBC Nucleated RBC % (auto) Smear Tech's Comments PT INR Sodium Potassium Chloride Carbon Dioxide Anion Gap BUN Creatinine Estim Creat Clear Calc Estimated GFR POC Glucose Random Glucose Lactic Acid 1.2 Calcium Total Bilirubin AST ALT Alkaline Phosphatase Total Protein Albumin Procalcitonin Stool Occult Blood POS COVID-19 (MARISA) COVID-19 Clin Com SARS-CoV-2 IgG Ab Blood Type A Positive Antibody Screen NEGATIVE Crossmatch See Detail 06/29/20 06/29/20 06/30/20 18:03 21:00 09:31 WBC RBC Hgb Hct MCV MCH MCHC RDW Plt Count MPV Immature Gran % (Auto) Neut % (Auto) Lymph % (Auto) [place] % (Auto) Eos % (Auto) Baso % (Auto) Lymph # (Auto) [place] # (Auto) Eos # (Auto) Baso # (Auto) Abs Immat Gran (auto) Absolute Neuts (auto) Absolute Nucleated RBC Nucleated RBC % (auto) Smear Tech's Comments PT INR Sodium 136 Potassium 3.9 Chloride 105 Carbon Dioxide 24 Anion Gap 11 L BUN 27 H Creatinine 0.95 Estim Creat Clear Calc 61.0 Estimated GFR 59 POC Glucose 122 H 131 H Random Glucose 133 H Lactic Acid Calcium 8.0 L Total Bilirubin AST ALT Alkaline Phosphatase Total Protein Albumin Procalcitonin Stool Occult Blood COVID-19 (MARISA) COVID-19 Clin Com SARS-CoV-2 IgG Ab Blood Type Antibody Screen Crossmatch 06/30/20 06/30/20 06/30/20 09:31 09:31 09:31 WBC 4.9 RBC 3.59 L Hgb 9.2 L Hct 29.9 L MCV 83.3 MCH 25.6 L MCHC 30.8 L RDW 15.6 Plt Count 98 L D MPV 9.9 Immature Gran % (Auto) 0.4 Neut % (Auto) 66.9 Lymph % (Auto) 17.7 L [place] % (Auto) 10.5 Eos % (Auto) 3.5 Baso % (Auto) 1.0 Lymph # (Auto) 0.9 L [place] # (Auto) 0.5 Eos # (Auto) 0.2 Baso # (Auto) 0.1 Abs Immat Gran (auto) 0.02 Absolute Neuts (auto) 3.3 Absolute Nucleated RBC 0.000 Nucleated RBC % (auto) 0.0 Smear Tech's Comments PT INR Sodium Potassium Chloride Carbon Dioxide Anion Gap BUN Creatinine Estim Creat Clear Calc Estimated GFR POC Glucose Random Glucose Lactic Acid Calcium Total Bilirubin AST ALT Alkaline Phosphatase Total Protein Albumin Procalcitonin 0.05 Stool Occult Blood COVID-19 (MARISA) COVID-19 Clin Com SARS-CoV-2 IgG Ab Negative Blood Type Antibody Screen Crossmatch 06/30/20 06/30/20 06/30/20 11:46 12:19 20:43 WBC 6.7 RBC 3.86 L Hgb 9.8 L Hct 31.9 L MCV 82.6 MCH 25.4 L MCHC 30.7 L RDW 15.6 Plt Count 126 L D MPV 10.2 Immature Gran % (Auto) 0.3 Neut % (Auto) 61.3 Lymph % (Auto) 23.2 [place] % (Auto) 9.8 Eos % (Auto) 3.9 Baso % (Auto) 1.5 Lymph # (Auto) 1.6 [place] # (Auto) 0.7 Eos # (Auto) 0.3 Baso # (Auto) 0.1 Abs Immat Gran (auto) 0.02 Absolute Neuts (auto) 4.1 Absolute Nucleated RBC 0.000 Nucleated RBC % (auto) 0.0 Smear Tech's Comments PT INR Sodium Potassium Chloride Carbon Dioxide Anion Gap BUN Creatinine Estim Creat Clear Calc Estimated GFR POC Glucose 119 H 138 H Random Glucose Lactic Acid Calcium Total Bilirubin AST ALT Alkaline Phosphatase Total Protein Albumin Procalcitonin Stool Occult Blood COVID-19 (MARISA) COVID-19 Clin Com SARS-CoV-2 IgG Ab Blood Type Antibody Screen Crossmatch 07/01/20 07/01/20 07/01/20 06:02 06:02 06:02 WBC 7.4 RBC 3.68 L Hgb 9.2 L Hct 31.3 L MCV 85.1 MCH 25.0 L MCHC 29.4 L RDW 16.0 Plt Count 134 L MPV 10.3 Immature Gran % (Auto) 0.5 H Neut % (Auto) 75.3 H Lymph % (Auto) 13.1 L [place] % (Auto) 10.8 Eos % (Auto) 0.0 Baso % (Auto) 0.3 Lymph # (Auto) 1.0 L [place] # (Auto) 0.8 Eos # (Auto) 0.0 Baso # (Auto) 0.0 Abs Immat Gran (auto) 0.04 H Absolute Neuts (auto) 5.6 Absolute Nucleated RBC 0.000 Nucleated RBC % (auto) 0.0 Smear Tech's Comments PT 17.9 H INR 1.5 H Sodium 134 L Potassium 4.7 D Chloride 102 Carbon Dioxide 22 Anion Gap 15 BUN 41 H D Creatinine 1.55 H Estim Creat Clear Calc 37.4 Estimated GFR 34 POC Glucose Random Glucose 114 Lactic Acid Calcium 8.1 L Total Bilirubin 2.3 H AST 44 H ALT 27 Alkaline Phosphatase 73 Total Protein 7.5 Albumin 3.2 L Procalcitonin Stool Occult Blood COVID-19 (MARISA) COVID-19 Clin Com SARS-CoV-2 IgG Ab Blood Type Antibody Screen Crossmatch 07/01/20 07:14 WBC RBC Hgb Hct MCV MCH MCHC RDW Plt Count MPV Immature Gran % (Auto) Neut % (Auto) Lymph % (Auto) [place] % (Auto) Eos % (Auto) Baso % (Auto) Lymph # (Auto) [place] # (Auto) Eos # (Auto) Baso # (Auto) Abs Immat Gran (auto) Absolute Neuts (auto) Absolute Nucleated RBC Nucleated RBC % (auto) Smear Tech's Comments PT INR Sodium Potassium Chloride Carbon Dioxide Anion Gap BUN Creatinine Estim Creat Clear Calc Estimated GFR POC Glucose 112 Random Glucose Lactic Acid Calcium Total Bilirubin AST ALT Alkaline Phosphatase Total Protein Albumin Procalcitonin Stool Occult Blood COVID-19 (MARISA) COVID-19 Clin Com SARS-CoV-2 IgG Ab Blood Type Antibody Screen Crossmatch 12 lead EKG 07/01/20: Test Reason : A FIB Blood Pressure : / mmHG Vent. Rate : 102 BPM Atrial Rate : 115 BPM P-R Int : 000 ms QRS Dur : 106 ms QT Int : 406 ms P-R-T Axes : 000 -58 071 degrees QTc Int : 529 ms Atrial fibrillation with rapid ventricular response Low voltage QRS Left anterior fascicular block Cannot rule out Inferior infarct (masked by fascicular block?) , age undetermined Cannot rule out Anterior infarct , age undetermined Prolonged QT Abnormal ECG Airway Mallampati Class: II TM Dist: >3cm Neck ROM: Full Denture: Upper and Lower Heart: Irregular Lungs: CTAB Assessment and Plan Assessment Anesthesia Assessment: Anesthesia Plan Discussed and Chart Reviewed Final Anesthetic Review NPO: Yes ASA Class: III and Emergency Final Preanesthetic Review: No Changes in Pt Med Stat, Meds/Allgs Chart Reviewed, Consent Obtained/Reviewed and Anes Risks/Benef Reviewed Patient Risk: High Procedure Risk: Low Assessment/Block/Sedation in SS: Assess/Block/Sedation-SS Anesthetic Plan Anesthetic Plan: MAC: Disposition: Standard PACU
[2020-07-01 10:09] LABS: Adenovirus PCR Not Detected (Not Detect.); Bordetella parapertussis PCR Not Detected (Not Detect.); Bordetella pertussis PCR Not Detected (Not Detect.); Chlamydia pneumoniae PCR Not Detected (Not Detect.); Coronavirus 229E PCR Not Detected (Not Detect.); Coronavirus HKU1 PCR Not Detected (Not Detect.); Coronavirus NL63 PCR Not Detected (Not Detect.); Coronavirus OC43 PCR Not Detected (Not Detect.); Human metapneumovirus PCR Not Detected (Not Detect.); Influenza A PCR Not Detected (Not Detect.); Influenza B PCR Not Detected (Not Detect.); Mycoplasma pneumoniae PCR Not Detected (Not Detect.); Parainfluenza 1 PCR Not Detected (Not Detect.); Parainfluenza 2 PCR Not Detected (Not Detect.); Parainfluenza 3 PCR Not Detected (Not Detect.); Parainfluenza 4 PCR Not Detected (Not Detect.); RSV PCR Not Detected (Not Detect.); Rhino/Enterovirus PCR Not Detected (Not Detect.); SARS-CoV-2 PCR Not Detected (Not Detect.)
--- NOTE | 2020-07-01 10:35 | MHC.SHP ---
Pre-Procedural Eval Section A The patient is an INPATIENT: Yes The History & Physical has been completed within 30 days and I have reviewed it.: Yes Section B Chief Complaint: dry cough Allergies: Allergies Allergy/AdvReac Type Severity Reaction Status Date / Time Erythromycin Allergy Unknown nausea and Verified 03/18/20 16:13 vomiting erythromycin base Allergy Unknown UNKNOWN Verified 03/18/20 16:13 [ERYTHROMYCIN BASE] latex [LATEX] Allergy Unknown UNKNOWN Verified 03/18/20 16:13 obeticholic acid [Ocaliva] Allergy Unknown syncope Verified 03/18/20 16:13 Sulfa (Sulfonamide Allergy Unknown nausea and Verified 03/18/20 16:13 Antibiotics) vomiting, vomiting sulfamethoxazole Allergy Unknown UNKNOWN Verified 03/18/20 16:13 [From BACTRIM] trimethoprim [From BACTRIM] Allergy Unknown UNKNOWN Verified 03/18/20 16:13 adhesive tape [TAPE,ADHESIVE] AdvReac Unknown RASH Verified 03/18/20 16:13 Erythrocin Allergy Unknown vomiting Uncoded 08/22/18 00:00 Latex Allergy Unknown rash Uncoded 01/14/20 00:00 surgical tape AdvReac Unknown rash Uncoded 01/14/20 00:00 Plan I have reviewed the history and physical and performed a pertinent physical examination on my patient. No changes have occurred unless specified.
--- NOTE | 2020-07-01 11:08 | PM.OP ---
Brief Operative Note Date of Service: 07/01/20 Pre-op diagnosis: GI Bleed Post-op diagnosis: other (gastric antral vascular ectasia, esophageal varices, portal hypertensive gastropathy) Procedure: EGD Surgeon: Jaime Alexander Anesthesia: MAC Estimated blood loss (mL): 0 Pathology: none sent Condition: stable Disposition: PACU
--- NOTE | 2020-07-01 11:10 | PM.EVENT ---
Event Note Date of Service: 07/01/20 Event Note: EGD note dicated Grade 1 nonbleeding esophageal varices Gastric antral vascular ectasia without bleeding portal hypertensive gastropathy, mild Advance diet oral ppi monitor hct
--- NOTE | 2020-07-01 11:30 | OP_ITS ---
SURGEON: Jaime Alexander MD INDICATIONS: GI bleeding. PREOPERATIVE DIAGNOSIS: POSTOPERATIVE DIAGNOSIS: PROCEDURE PERFORMED: Upper endoscopy. ESTIMATED BLOOD LOSS: COMPLICATIONS: ANESTHESIA: ASSISTANTS: SPECIMENS: MEDICATIONS: Monitored anesthesia care. DESCRIPTION OF PROCEDURE: History and physical was performed. The risks and benefits of the procedure were explained to the patient. Informed consent was obtained. The patient was placed in the left lateral decubitus position. The Olympus video gastroscope was introduced into the esophagus, stomach, and duodenum. Examination was performed, and the scope was removed. She tolerated the procedure well and was taken to Recovery in stable condition. FINDINGS: Esophagus: There were 3 chains of grade 1 varices extending from the EG junction at about 40 cm to about 29 cm. There was no stigmata of recent hemorrhage. There was no esophagitis. Stomach: The stomach showed no evidence of active bleeding. There were mild changes of portal hypertensive gastropathy. No gastric varices were identified. There were 2 benign-appearing gastric polyps in the body. There were changes of gastric antral vascular ectasia without any active bleeding. No therapy was performed. Duodenum: The bulb and second portion were normal. IMPRESSION: 1. Esophageal varices. 2. Gastric antral vascular ectasia. 3. Portal hypertensive gastropathy, mild. RECOMMENDATIONS: 1. Advanced diet. 2. Monitor hematocrit. MD DARIO Galindo/DAV / [id number]
--- NOTE | 2020-07-01 11:55 | HP_ITS ---
DATE OF SERVICE: 06/29/2020 CHIEF COMPLAINT: Dry cough. HISTORY OF PRESENT ILLNESS: 65-year-old woman presenting to the ER with a dry cough over the last 3 weeks. She reports that she does have a history of bronchitis in a longest time, usually when she will come down with it. She reported that in the last day or so, she has had a low-grade temp and had some dark stools over the last 3 days. She did report she was feeling a little bit more tired. Other than that, no chest pain, nausea, vomiting, diarrhea, recent travel or sick contacts. She went to Urgent Care today and had a COVID test, which was negative. However, her heart rate was found to be in the 140s, and she was sent to the ER for further evaluation. She does have a history of atrial fibrillation and has not taken any of her medication this morning. She was transferred to the ER. Her heart rate was in the 130s, this did improve with some oral metoprolol. Chest x-ray showed diffuse bilateral patchy ground-glass opacities. Her hemoglobin and hematocrit were noted to be low at 7.9 and 26.0, platelet count 73. She does have a history of chronic cirrhosis. She has stool occult positive. She was given oral metoprolol, Protonix, and Levaquin while in the ER. She will be admitted for further management and treatment of community-acquired pneumonia, rapid atrial fibrillation, and anemia. PAST MEDICAL HISTORY: 1. Anemia. 2. Atrial fibrillation on full-dose aspirin. 3. Hypothyroidism. 4. Primary biliary cirrhosis. 5. Iron deficiency anemia. 6. Hypertension. 7. Chronic pancytopenia. 8. Cardiomyopathy. 9. Heart failure. 10. Hypertension. 11. Chronic pain. 12. Diabetes mellitus. PAST SURGICAL HISTORY: 1. Cholecystectomy. 2. Cataract extraction. 3. Hernia repair. 4. Right ankle ORIF. 5. Breast reduction. 6. Status post Watchman's procedure at [facility], had previously been on Eliquis and on full-dose aspirin. FAMILY HISTORY: Significant for heart disease, diabetes, COPD in her mother. Father had stroke and history of diabetes. Several brothers and sisters with history of cancer including liver, Hodgkin lymphoma, endometrial cancer, leukemia, breast cancer and testicular cancer. SOCIAL HISTORY: Patient quit smoking more than 16 years ago. She denies any alcohol or illicit drug use. ALLERGIES: TO ERYTHROMYCIN, LATEX, OCALIVA, SULFA ANTIBIOTICS, BACTRIM, SURGICAL TAPE. MEDICATIONS: 1. Albuterol sulfate 2 puffs q.6 hours p.r.n. for shortness of breath and wheezing. 2. Aspirin 325 mg p.o. daily. 3. Cyanocobalamin 1000 mcg IM every month. 4. Furosemide 20 mg p.o. daily. 5. Hydroxyzine 25 mg p.o. q.6 hours. 6. Levothyroxine 175 mcg p.o. daily. 7. Lisinopril 2.5 mg p.o. daily. 8. Lorazepam 0.5 mg p.o. daily. 9. Metoprolol succinate 100 mg p.o. daily. 10. Omeprazole 20 mg p.o. daily. 11. Paroxetine 1 tab p.o. daily. 12. Spironolactone 50 mg p.o. daily. 13. Ursodiol 600 mg p.o. t.i.d. REVIEW OF SYSTEMS: CONSTITUTIONAL: Denies recent fever, chills, or decrease in appetite. RESPIRATORY: Denies any shortness of breath. Reports dry cough. No sputum production. CARDIOVASCULAR: Denies any chest pain, orthopnea, PND, or edema. GASTROINTESTINAL: Denies any dysphagia, abdominal pain, nausea, vomiting, or diarrhea. GENITOURINARY: Denies any dysuria, frequency, hematuria. MUSCULOSKELETAL: Denies any joint pain or swelling. NEURO-PSYCH: Denies any weakness or seizures. All other systems are reviewed and are negative. PHYSICAL EXAMINATION: CONSTITUTIONAL: Resting in bed, appearing in no acute distress. VITAL SIGNS: 98.6, 95, 99/64, 94% on room air. SKIN: Intact without rashes or open sores. HEENT: Head is normocephalic, atraumatic. Eyes, pupils are PERRLA. Sclerae anicteric. Mouth and throat, mucous membrane are intact and moist. NECK: Supple. No lymphadenopathy. No JVD noted. CHEST: Diminished. HEART: Irregularly irregular. ABDOMEN: Positive bowel sounds. NEURO: The patient is alert and oriented x3. No cranial nerve deficits noted. LABORATORY DATA: Sodium 137, potassium 3.9, chloride is 105, bicarb is 23, BUN is 21, creatinine 0.92, glucose is 127. WBC 3.0, hemoglobin 7.9, hematocrit 26.0, platelets 73. COVID negative. Stool occult positive. ASSESSMENT AND PLAN: A 65-year-old woman who is being admitted with rapid atrial fibrillation, likely secondary to community-acquired pneumonia. She was also noted to have possible gastrointestinal bleed with anemia. 1. Rapid atrial fibrillation. The patient received oral metoprolol, seem to help. We will follow closely and continue if heart rate becomes increasingly elevated. Consider placing back on Cardizem drip or even giving some digoxin if she is hypotensive. 2. Community-acquired pneumonia. Levaquin, follow cultures. 3. Gastrointestinal bleed. History of chronic cirrhosis, on liver transplant list at [facility]. We will check H and H. We will give 1 unit of packed red blood cells. Follow H and H closely. GI consultation. Hold full-dose aspirin. PPI. 4. Diabetes mellitus. Sliding scale, ADA diet. 5. Hypertension, stable. Blood pressure actually on the lower side. We will hold lisinopril. 6. History of chronic liver cirrhosis. The patient on Lasix and spironolactone. We will continue medications, follow blood pressure to avoid hypotension. 7. Hypothyroidism. Continue levothyroxine. 8. Deep vein thrombosis prophylaxis with mechanical compression boots. 9. Case discussed with Dr. Bartlett. 10. Full code. KAMINI Tang MD JR/DAV / [id number] MTDD
[2020-07-01 12:42] LABS: Glucose, Whole Blood 134 mg/dL (60-115)
[2020-07-01] MEDS: levoFLOXacin/D5W 500 MG/100 ML PIGGYBACK 100 MG IV (12:55)
--- NOTE | 2020-07-01 13:55 | HO.PM.IMPN ---
Subjective Subjective Date of Service: 07/01/20 Interval History: No further melena Cough improved No dyspnea No fever Physical Exam Vital Signs: Vital Signs: Last Vital Signs Temp 97.7 F 07/01/20 11:30 Pulse 96 07/01/20 11:30 Resp 16 07/01/20 11:30 BP 96/53 L 07/01/20 11:30 Pulse Ox 97 07/01/20 11:30 Body Mass Index 32.4 Gen: in no acute distress HEENT: sclera anicteric, moist mucus membranes Neck: supple Lungs: clear to auscultation bilaterally Heart: irregularly irregular Abd: soft, non-tender, non-distended Ext: no edema Skin: warm/well-perfused Neuro: alert and oriented x3, no focal findings Psych: appropriate affect Objective Data Current Medications Generic Name Dose Route Start Last Admin Trade Name Freq PRN Reason Stop Dose Admin Acetaminophen 650 mg 06/29/20 19:32 Acetaminophen 325 Mg Tablet PO Q4H PRN pain or fever Albuterol Sulfate 2 puff 06/29/20 16:41 Albuterol Sulfate 90 Mcg 8 Gm Inhaler INHALE Q6H PRN Cough Benzonatate 100 mg 06/30/20 10:49 Benzonatate 100 Mg Capsule PO TID PRN Cough Cyanocobalamin 1,000 mcg 07/03/20 10:00 Cyanocobalamin (Vitamin B-12) 1,000 Mcg/Ml Vial IM Q30D RADHA Guaifenesin/Dextromethorphan 5 ml 06/30/20 10:49 Guaifenesin Dm 100/10/5 Ml 5 Ml Syrup PO Q4H PRN cough Hydroxyzine HCl 25 mg 06/29/20 16:41 Hydroxyzine Hcl 25 Mg Tablet PO Q6H PRN itching Levofloxacin 500 mg in 100 mls @ 100 mls/hr 06/30/20 14:00 07/01/20 12:55 Levaquin IV 100 mls/hr Q24H RADHA Administration Sodium Chloride 1,000 mls @ 100 mls/hr 07/01/20 08:00 07/01/20 08:40 Ns IVCONT 07/02/20 03:59 100 mls/hr .Q10H RADHA Administration Sodium Chloride 1,000 mls @ 100 mls/hr 07/01/20 10:45 07/01/20 10:40 Ns IVCONT 100 mls/hr .Q10H [facility] Administration Insulin Human Lispro 0 unit 06/29/20 21:00 07/01/20 12:43 Insulin Lispro 100 Unit/Ml 3 Ml Vial SUBCUT Not Given QIDACHS [facility] Protocol Levothyroxine Sodium 175 mcg 06/30/20 09:00 07/01/20 08:40 Levothyroxine Sodium 175 Mcg Tablet PO Not Given DAILY [facility] Lorazepam 0.5 mg 06/29/20 16:41 06/29/20 23:45 Lorazepam 0.5 Mg Tablet PO 0.5 mg DAILY PRN Administration anxiety Metoclopramide HCl 5 mg 06/30/20 04:33 06/30/20 05:30 Metoclopramide Hcl 10 Mg/2 Ml Vial IVPUSH 5 mg ONCE PRN Administration Nausea and Vomiting Metoprolol Succinate 100 mg 06/30/20 09:00 07/01/20 09:06 Metoprolol Succinate Er 100 Mg Tab.Er.24h PO 100 mg DAILY [facility] Administration Protocol Ondansetron HCl 4 mg 06/30/20 13:40 06/30/20 15:33 Ondansetron Hcl 4 Mg/2 Ml Vial IVPUSH 4 mg Q8H PRN Administration Nausea Ondansetron HCl 4 mg 07/01/20 10:56 Ondansetron Hcl 4 Mg/2 Ml Vial IVPUSH ONCE PRN Nausea and Vomiting Paroxetine HCl 40 mg 06/30/20 09:00 07/01/20 08:41 Paroxetine Hcl 40 Mg Tablet PO Not Given DAILY [facility] Sodium Chloride 3 ml 06/30/20 00:00 07/01/20 08:40 0.9 % Sodium Chloride Flush 3 Ml Syringe IVFLUSH 3 ml QSHIFT [facility] Administration Spironolactone 50 mg 06/30/20 09:00 07/01/20 09:06 Spironolactone 25 Mg Tablet PO Not Given DAILY [facility] Protocol Ursodiol 600 mg 06/29/20 21:00 07/01/20 09:06 Ursodiol 300 Mg Capsule PO Not Given TID [facility] Labs CBC & Chem 7: 07/01/20 06:02 07/01/20 06:02 Microbiology Microbiology Results: Microbiology 06/29/20 14:58 Blood - Venous Blood Culture - Preliminary No growth after 24 hours. 06/29/20 14:58 Blood - Venous Blood Culture - Preliminary No growth after 24 hours. Assessment and Plan (1) Acute GI bleeding: Problem details: S/p 1 unit PRBC 06/29/20 Status: Acute (2) Pneumonia: Problem details: On levaquin Status: Acute Assessment and Plan: hosp d#3 65yo F with PBC on transplant list, persistent AF s/p Watchman device, asthma admitted for AF/RVR, GI bleed, ground glass pneumonia # GI bleed on ASA - EGD done today showing: Grade 1 nonbleeding esophageal varices Gastric antral vascular ectasia without bleeding portal hypertensive gastropathy, mild - continue to hold ASA # acute blood loss anemia - stable s/p 1u pRBCs transfused 06/29/20 # HAYLEY - likely prerenal. will give IV NS and recheck SCr in am # ground-glass pneumonia - not hypoxic. COVID PCR x2 negative; IgG negative. rest of respiratory pathogen panel negative. levofloxacin d#3. follow BCx, Legionella UAg, trend PCT # AF/RVR - continue metoprolol succinate; hold ASA # chronic HFrEF - continue spironolactone + metoprolol succinate # cirrhosis/PBC - continue ursodiol. on [facility] transplant list. # DM2 - correction-dose lispro # hypothyroidism - continue LT4 # mood disorder - continue paroxetine # VTE ppx - SCDs
[2020-07-01] MEDS: 0.9 % Sodium Chloride 1,000 ML 999 ML IV (16:12)
[2020-07-01 16:25] LABS: Glucose, Whole Blood 130 mg/dL (60-115)
--- NOTE | 2020-07-01 16:34 | PC.NURSE ---
Patient's BP 84/62 manually. Patient c/o being tired . Denies any dizziness or other discomfort. MD notified. 1Liter bolus administered. will Recheck BP once fluids are complete.
[2020-07-01 16:47] LABS: Hematocrit 30.5 % (37-47); Hemoglobin 9.2 g/dl (12.0-16.0)
--- NOTE | 2020-07-01 18:02 | PM.EVENT ---
Event Note Date of Service: 07/01/20 Event Note: called by RN for BP 85/55 mild lightheadedness getting NS 100 mL/hr 1L NS bolus given, BP still 86/56 CV RRR no m/r/g, normal peripheral pulses, extremities warm/pink will give another NS bolus 500 mL hold metoprolol and spironolactone for now
[2020-07-01] MEDS: 0.9 % Sodium Chloride 500 ML IV (18:17)
[2020-07-01 20:29] LABS: Glucose, Whole Blood 129 mg/dL (60-115)
[2020-07-01] MEDS: UrsodioL 300 MG CAPSULE 600 MG PO (20:34)
--- NOTE | 2020-07-01 21:48 | PC.NURSE ---
193 pts BP check after 500mL bolus of NS was 80/48, pt stated slight light headedness at that time. Pt had just used commode. Dr. Cline was made aware at 193 and no new orders were obtained at that time.
[2020-07-02] VITALS (10 sets, daily range): BP systolic 80–110; BP diastolic 43–72; PULSE 75–114; RESP 16–18; TEMP 35.8–36.7; O2SAT 93–95
--- NOTE | 2020-07-02 | US_ITS ---
EXAMINATION: US RETROPERITONEAL COMPLETE (RENAL) CLINICAL INFORMATION: Acute kidney insufficiency. Check for urinary retention. Patient has Gómez catheter. COMPARISON: Previous abdominal ultrasound December 2018, renal and bladder ultrasound November [address] of the abdomen and pelvis May 2016 TECHNIQUE: Real-time imaging of the kidneys and bladder. Exam is limited due to patient body habitus. FINDINGS: RIGHT KIDNEY: 10.1 x 5.4 x 4.5 cm (SAG x AP x TRV). The kidney is normal in size, contour, and echogenicity. Renal cortical thickness is normal. No calculi or focal parenchymal lesions. No hydronephrosis. LEFT KIDNEY: 8.5 x 5.3 x 3.7 cm (SAG x AP x TRV). The kidney is smaller than the right and difficult to visualize. Renal cortical thickness and echogenicity is normal. No calculi or focal parenchymal lesions. No hydronephrosis. BLADDER: The bladder is not identified. Gómez catheter is not identified. When the operating room surgical technologist unclamped the Gómez catheter, no urine came out. Position of Gómez catheter is uncertain. US/US retroperitoneal comp IMPRESSION: Small left kidney. Normal-appearing right kidney. No hydronephrosis. Bladder and Gómez catheter not identified. Follow-up CT scan should be considered.
--- NOTE | 2020-07-02 | US_ITS ---
EXAMINATION: US VENOUS WITH DOPPLER UPPER EXTREMITY, LEFT CLINICAL INFORMATION: Edema COMPARISON: None TECHNIQUE: Ultrasound of the upper extremity is performed using compression sonography and color and pulse Doppler flow with assessment of augmentation of flow. There is also imaging and Doppler assessment of the jugular and subclavian veins. Spectral analysis with color-flow imaging is performed. FINDINGS: Respiratory variation, normal compression, and augmented flow are noted throughout the upper extremity including the axillary, brachial, cubital, and radial and ulnar veins. There is normal flow in the internal jugular and subclavian veins. There is no visible deep or superficial thrombophlebitis. If the patient's symptoms progress, a followup ultrasound in 5 -7 days might be of value to exclude proximal propagation from a nonvisualized distal arm vein. US/US venous duplex UE LT IMPRESSION: No DVT demonstrated in the left upper extremity
[2020-07-02 06:42] LABS: MANUAL DIFF FLAG NO
[2020-07-02 06:53] LABS: Basophils Percent Auto 0.2 % (0-2); Eosinophils Percent Auto 0.1 % (0-4); Hemoglobin 9.4 g/dl (12.0-16.0); Imm Gran Abs Auto 0.04 X10*3/uL (0.00-0.03); Imm Gran Pct Auto 0.5 % (0.0-0.4); Lymphocytes Absolute Auto 0.9 X10*3/uL (1.2-4.9); Lymphocytes Percent Auto 11.5 % (20-40); Mean Corpuscular HGB Conc 29.4 g/dl (31.0-35.0); Mean Corpuscular Hemoglobin 25.3 pg (27.0-33.0); Mean Platelet Volume 10.5 fL (9.4-12.3); Monocytes Percent Auto 11.9 % (2-11); Neutrophils Absolute Auto 6.2 X10*3/uL (2.0-8.3); Neutrophils Percent Auto 75.8 % (45-73); Platelet Count 179 X10*3/uL (160-400); Red Blood Count 3.72 X10*6/uL (4.20-5.50); Red Cell Distribution Width 16.2 % (11.0-16.0); White Blood Count 8.1 X10*3/uL (4.8-10.8)
[2020-07-02 07:21] LABS: Anion Gap 17 (12-20); Blood Urea Nitrogen 56 mg/dL (9-16); Carbon Dioxide 18 mmol/L (22-29); Chloride 102 mmol/L (96-108); Creatinine Clr Calc Pharmacy 21.5; Estimated Glomerular Filt Rate 18; Glucose Random 130 mg/dL (60-115); Potassium 5.1 mmol/L (3.3-5.1); Sodium 132 mmol/L (135-145)
[2020-07-02 07:30] LABS: Procalcitonin 0.09 ng/mL
[2020-07-02 07:32] LABS: Calcium 7.6 mg/dL (8.4-10.2)
[2020-07-02 07:42] LABS: Glucose, Whole Blood 133 mg/dL (60-115)
[2020-07-02] MEDS: PARoxetine HCL 40 MG TABLET PO (10:32)
[2020-07-02] MEDS: Levothyroxine Sodium 175 MCG TABLET PO (10:33)
[2020-07-02] MEDS: UrsodioL 300 MG CAPSULE 600 MG PO (10:33)
[2020-07-02 11:41] LABS: Glucose, Whole Blood 136 mg/dL (60-115)
--- NOTE | 2020-07-02 12:17 | PM.CNNEP ---
History of Present Illness Reason for Consult Consult date: 07/02/20 Reason for consult: HAYLEY Chief Complaint Chief complaint: dry cough History of Present Illness Narrative: 65-year-old woman presenting to the ER with a dry cough over the last 3 weeks. along with dark stools over the last 3 days. There was no H/O chest pain, nausea, vomiting, diarrhea, recent travel or sick contacts. She is COVID negative. She was found to have hypotension, AFib with RVR. Her hemoglobin and hematocrit were noted to be low at 7.9 and 26.0, platelet count 73. She does have a history of chronic cirrhosis. Her serum creatinine has gone up. Nephrology has been consulted to assist in her clinical care. Review of Systems Review of Systems Yes all other systems are reviewed and are negative PMF Past Medical History Medical History (Updated 07/02/20 @ 12:24 by Phil Arrington MD) Acute GI bleeding Afib Anemia Asthma with COPD B12 deficiency Chronic pruritus JANIE (generalized anxiety disorder) H/O chronic heart failure H/O gastroesophageal reflux (GERD) HTN (hypertension) Hypothyroidism Pneumonia Primary biliary cirrhosis Thrombocytopenia Surgical History Surgical History (Updated 07/01/20 @ 10:40 by Joann Gonzalez) H/O bilateral cataract extraction H/O umbilical hernia repair S/P laparoscopic cholecystectomy S/P reduction mammoplasty Social History Social History Household Members: Spouse Housing: House Do you presently have visiting nurse or other home services: No Smoking Status: Former smoker Smoked in Last 30 Days: No Patient Interested in Nicotine Replacement: No Patient Given Instructions on How to Stop Smoking: No Second Hand Smoke Exposure: No Use of substances other than those prescribed or required for medical reasons: No Currently Displaying Signs/Symptoms of Drug Intoxication Withdrawal: No Have you been hit, kicked, punched, or otherwise hurt by someone within the past year? If so, by whom?: No Do you feel safe in your current relationship?: No Is there a partner from a previous relationship who is making you feel unsafe now?: No Are you made to feel afraid or neglected: No Advance Directives: No Advance Directives Information Provided: No Do you have thoughts of harming others: None Do you have a plan to hurt others: No Plan Recently lost weight without trying: No service: No Current occupational status: unemployed Meds Allergies Allergy/AdvReac Type Severity Reaction Status Date / Time Erythromycin Allergy Unknown nausea and Verified 03/18/20 16:13 vomiting erythromycin base Allergy Unknown UNKNOWN Verified 03/18/20 16:13 [ERYTHROMYCIN BASE] latex [LATEX] Allergy Unknown UNKNOWN Verified 03/18/20 16:13 obeticholic acid [Ocaliva] Allergy Unknown syncope Verified 03/18/20 16:13 Sulfa (Sulfonamide Allergy Unknown nausea and Verified 03/18/20 16:13 Antibiotics) vomiting, vomiting sulfamethoxazole Allergy Unknown UNKNOWN Verified 03/18/20 16:13 [From BACTRIM] trimethoprim [From BACTRIM] Allergy Unknown UNKNOWN Verified 03/18/20 16:13 adhesive tape [TAPE,ADHESIVE] AdvReac Unknown RASH Verified 03/18/20 16:13 Erythrocin Allergy Unknown vomiting Uncoded 08/22/18 00:00 Latex Allergy Unknown rash Uncoded 01/14/20 00:00 surgical tape AdvReac Unknown rash Uncoded 01/14/20 00:00 Home Medications Medication Instructions Recorded Confirmed Type albuterol sulfate 90 mcg/actuation 2 puff INHALATION Q6H PRN 04/30/20 06/29/20 History aerosol inhaler aspirin 325 mg tablet 325 mg PO DAILY 04/30/20 06/29/20 History cyanocobalamin (vitamin B-12) 1,000 mcg IM QMONTH 04/30/20 06/29/20 History 1,000 mcg/mL injection solution furosemide 20 mg tablet 20 mg PO DAILY 04/30/20 06/29/20 History lisinopril 2.5 mg tablet 2.5 mg PO DAILY 04/30/20 06/29/20 History metoprolol succinate 100 mg 100 mg PO DAILY 04/30/20 06/29/20 History tablet,extended release 24 hr spironolactone 25 mg tablet 50 mg PO DAILY 04/30/20 06/29/20 History ursodiol 300 mg capsule 600 mg PO TID 04/30/20 06/29/20 History omeprazole 20 mg PO DAILY 06/29/20 06/29/20 History paroxetine HCl 1 tab PO QAM 06/29/20 06/29/20 History Physical Exam Vital Signs: Last Vital Signs Temp 96.8 F 07/02/20 12:00 Pulse 114 H 07/02/20 12:12 Resp 18 07/02/20 12:00 BP 94/55 L 07/02/20 12:12 Pulse Ox 94 07/02/20 12:00 Body Mass Index 32.4 Const General: no acute distress Neck Neck: Yes supple Resp Auscultation: diminished lung sounds Cardio Jugular venous distension: no JVD GI Palpation (GI): Soft to palpation Neuro General: moves all extremities Results Lab Results Result Diagrams: 07/02/20 06:13 07/02/20 06:13 Lab results: Chemistry 06/29/20 06/30/20 07/01/20 11:57 09:31 06:02 Sodium 137 136 134 L Potassium 3.9 3.9 4.7 D Carbon Dioxide 23 24 22 BUN 21 H 27 H 41 H D Creatinine 0.92 0.95 1.55 H Calcium 8.1 L 8.0 L 8.1 L 07/02/20 06:13 Sodium 132 L Potassium 5.1 Carbon Dioxide 18 L BUN 56 H Creatinine 2.69 H Calcium 7.6 L D Hematology 06/29/20 06/30/20 06/30/20 11:57 09:31 12:19 WBC 3.0 L 4.9 6.7 Hgb 7.9 L 9.2 L 9.8 L Plt Count 73 L 98 L D 126 L D 07/01/20 07/01/20 07/02/20 06:02 16:41 06:13 WBC 7.4 8.1 Hgb 9.2 L 9.2 L 9.4 L Plt Count 134 L 179 D Assessment and Plan (1) Acute kidney injury: Problem details: HAYLEY likely due to tubular injury following low BP and blood loss from GI tract Differential Dx would be HRS/ Vasculitis( pulmonary renal)- Unlikely; ANCA ordered Needs urine sodium rechecked. Continue supportive care for now No ACEI/ARB/Diuretics. Labs AM. Shall follow up closely Status: Acute
[2020-07-02] MEDS: 0.9 % Sodium Chloride 1,000 ML 999 ML IV (12:28)
--- NOTE | 2020-07-02 12:34 | PC.NURSE ---
Patient unable to void. Patient states since tuesday . Bladder scan 144cc. MD notified. STAT renal ultrasound ordered. 16f jackson placed, dark yellow urine noted. BP: 80/60 manually checked at 1145. Patient asymptomatic. NS running at 100ml/hr. MD notified. New order for 1000L IVF bolus. 200cc dark yellow urine noted in jackson catheter. Patient denies any pain or discomfort at this time. Will continue to monitor. Awaiting nephrology consult.
--- NOTE | 2020-07-02 13:35 | HO.POSTANES ---
Post Anesthesia Evaluation Post Anesthesia Evaluation Vital Signs: Vital Signs Temp Pulse Resp BP Pulse Ox 07/02/20 12:12 114 H 94/55 L 07/02/20 12:00 96.8 F 104 H 18 80/60 L 94 07/02/20 08:00 98.0 F 07/02/20 07:16 90/58 L 07/02/20 03:41 97.4 F 88 16 110/72 93 Anesthesia: Monitored Mental Status: Awake Pain Control: Satisfactory Nausea/Vomiting: None Hydration: Adequate Anesthesia-Related Issues: No Anes. Related Issues
[2020-07-02] MEDS: ondansetron HCL 4 MG/2 ML VIAL IVPUSH ×2 (14:11→22:01)
[2020-07-02] MEDS: levoFLOXacin/D5W 500 MG/100 ML PIGGYBACK 100 MG IV (14:11)
--- NOTE | 2020-07-02 15:02 | P.PNIM_ITS ---
Subjective Subjective Date of Service: 07/02/20 Interval History: cough improved no GI bleeding minimal urine output SCr worse Physical Exam Vital Signs: Vital Signs: Last Vital Signs Temp 96.8 F 07/02/20 12:00 Pulse 114 H 07/02/20 12:12 Resp 18 07/02/20 12:00 BP 96/62 07/02/20 13:47 Pulse Ox 94 07/02/20 12:00 Body Mass Index 32.4 Gen: in no acute distress HEENT: sclera anicteric, moist mucus membranes Neck: supple Lungs: clear to auscultation bilaterally Heart: irregularly irregular Abd: soft, non-tender, non-distended Ext: no edema Skin: warm/well-perfused Neuro: alert and oriented x3, no focal findings Psych: appropriate affect Objective Data Current Medications Generic Name Dose Route Start Last Admin Trade Name Freq PRN Reason Stop Dose Admin Acetaminophen 650 mg 06/29/20 19:32 Acetaminophen 325 Mg Tablet PO Q4H PRN pain or fever Albuterol Sulfate 2 puff 06/29/20 16:41 Albuterol Sulfate 90 Mcg 8 Gm Inhaler INHALE Q6H PRN Cough Benzonatate 100 mg 06/30/20 10:49 Benzonatate 100 Mg Capsule PO TID PRN Cough Cyanocobalamin 1,000 mcg 07/03/20 10:00 Cyanocobalamin (Vitamin B-12) 1,000 Mcg/Ml Vial IM Q30D RADHA Cyanocobalamin 1,000 mcg 07/03/20 08:00 Cyanocobalamin (Vitamin B-12) 1,000 Mcg/Ml Vial IM 07/03/20 08:01 ONCE ONE Guaifenesin/Dextromethorphan 5 ml 06/30/20 10:49 Guaifenesin Dm 100/10/5 Ml 5 Ml Syrup PO Q4H PRN cough Hydroxyzine HCl 25 mg 06/29/20 16:41 Hydroxyzine Hcl 25 Mg Tablet PO Q6H PRN itching Levofloxacin 500 mg in 100 mls @ 100 mls/hr 06/30/20 14:00 07/02/20 14:11 Levaquin IV 100 mls/hr Q24H RADHA Administration Sodium Chloride 1,000 mls @ 100 mls/hr 07/01/20 10:45 07/02/20 08:44 Ns IVCONT Not Given .Q10H [facility] Insulin Human Lispro 0 unit 06/29/20 21:00 07/02/20 12:29 Insulin Lispro 100 Unit/Ml 3 Ml Vial SUBCUT Not Given QIDACHS [facility] Protocol Levothyroxine Sodium 175 mcg 06/30/20 09:00 07/02/20 10:33 Levothyroxine Sodium 175 Mcg Tablet PO 175 mcg DAILY RADHA Administration Lorazepam 0.5 mg 06/29/20 16:41 06/29/20 23:45 Lorazepam 0.5 Mg Tablet PO 0.5 mg DAILY PRN Administration anxiety Metoclopramide HCl 5 mg 06/30/20 04:33 06/30/20 05:30 Metoclopramide Hcl 10 Mg/2 Ml Vial IVPUSH 5 mg ONCE PRN Administration Nausea and Vomiting Ondansetron HCl 4 mg 06/30/20 13:40 07/02/20 14:11 Ondansetron Hcl 4 Mg/2 Ml Vial IVPUSH 4 mg Q8H PRN Administration Nausea Ondansetron HCl 4 mg 07/01/20 10:56 Ondansetron Hcl 4 Mg/2 Ml Vial IVPUSH ONCE PRN Nausea and Vomiting Paroxetine HCl 40 mg 06/30/20 09:00 07/02/20 10:32 Paroxetine Hcl 40 Mg Tablet PO 40 mg DAILY [facility] Administration Sodium Chloride 3 ml 06/30/20 00:00 07/02/20 09:12 0.9 % Sodium Chloride Flush 3 Ml Syringe IVFLUSH Not Given QSHIFT [facility] Ursodiol 600 mg 06/29/20 21:00 07/02/20 14:13 Ursodiol 300 Mg Capsule PO Not Given TID [facility] Labs CBC & Chem 7: 07/02/20 06:13 07/02/20 06:13 Labs: Laboratory Results - last 24 hr 07/01/20 07/01/20 07/01/20 16:16 16:41 20:18 WBC RBC Hgb 9.2 L Hct 30.5 L MCV MCH MCHC RDW Plt Count MPV Immature Gran % (Auto) Neut % (Auto) Lymph % (Auto) [place] % (Auto) Eos % (Auto) Baso % (Auto) Lymph # (Auto) [place] # (Auto) Eos # (Auto) Baso # (Auto) Abs Immat Gran (auto) Absolute Neuts (auto) Absolute Nucleated RBC Nucleated RBC % (auto) Sodium Potassium Chloride Carbon Dioxide Anion Gap BUN Creatinine Estim Creat Clear Calc Estimated GFR POC Glucose 130 H 129 H Random Glucose Calcium Procalcitonin 07/02/20 07/02/20 07/02/20 06:13 06:13 06:13 WBC 8.1 RBC 3.72 L Hgb 9.4 L Hct 32.0 L MCV 86.0 MCH 25.3 L MCHC 29.4 L RDW 16.2 H Plt Count 179 D MPV 10.5 Immature Gran % (Auto) 0.5 H Neut % (Auto) 75.8 H Lymph % (Auto) 11.5 L [place] % (Auto) 11.9 H Eos % (Auto) 0.1 Baso % (Auto) 0.2 Lymph # (Auto) 0.9 L [place] # (Auto) 1.0 Eos # (Auto) 0.0 Baso # (Auto) 0.0 Abs Immat Gran (auto) 0.04 H Absolute Neuts (auto) 6.2 Absolute Nucleated RBC 0.000 Nucleated RBC % (auto) 0.0 Sodium 132 L Potassium 5.1 Chloride 102 Carbon Dioxide 18 L Anion Gap 17 BUN 56 H Creatinine 2.69 H Estim Creat Clear Calc 21.5 Estimated GFR 18 POC Glucose Random Glucose 130 H Calcium 7.6 L D Procalcitonin 0.09 07/02/20 07/02/20 07:33 11:21 WBC RBC Hgb Hct MCV MCH MCHC RDW Plt Count MPV Immature Gran % (Auto) Neut % (Auto) Lymph % (Auto) [place] % (Auto) Eos % (Auto) Baso % (Auto) Lymph # (Auto) [place] # (Auto) Eos # (Auto) Baso # (Auto) Abs Immat Gran (auto) Absolute Neuts (auto) Absolute Nucleated RBC Nucleated RBC % (auto) Sodium Potassium Chloride Carbon Dioxide Anion Gap BUN Creatinine Estim Creat Clear Calc Estimated GFR POC Glucose 133 H 136 H Random Glucose Calcium Procalcitonin Impressions Retroperitoneum Ultrasound 07/02/20 00:00 IMPRESSION: Small left kidney. Normal-appearing right kidney. No hydronephrosis. Bladder and Gómez catheter not identified. Follow-up CT scan should be considered. Microbiology Microbiology Results: Microbiology 06/29/20 14:58 Blood - Venous Blood Culture - Preliminary No growth after 48 hours. 06/29/20 14:58 Blood - Venous Blood Culture - Preliminary No growth after 48 hours. Assessment and Plan (1) Acute GI bleeding: Problem details: S/p 1 unit PRBC 06/29/20 Status: Acute (2) Pneumonia: Problem details: On levaquin Status: Acute Assessment and Plan: hosp d#4 65yo F with PBC on transplant list, persistent AF s/p Watchman device, asthma admitted for AF/RVR, GI bleed, ground glass pneumonia # GI bleed on ASA - EGD done by Dr Alexander / showing: Grade 1 nonbleeding esophageal varices Gastric antral vascular ectasia without bleeding portal hypertensive gastropathy, mild - continue to hold ASA for 7d per Dr Alexander then resume # acute blood loss anemia - stable s/p 1u pRBCs transfused 06/29/20 # HAYLEY - SCr rising. Nephrology consult, likely ATN related to infection/hypotension/blood loss. # ground-glass pneumonia - not hypoxic. COVID PCR x2 negative; IgG negative. rest of respiratory pathogen panel negative. levofloxacin d#4. follow BCx, Legionella UAg, trend PCT # AF/RVR - hold metoprolol succinate due to hypotension; hold ASA due to GIB # chronic HFrEF - holding spironolactone + metoprolol succinate due to hypotension # cirrhosis/PBC - continue ursodiol. on [facility] [place] liver transplant list. # DM2 - correction-dose lispro # hypothyroidism - continue LT4 # mood disorder - continue paroxetine # VTE ppx - SCDs
[2020-07-02 16:38] LABS: Glucose, Whole Blood 147 mg/dL (60-115)
--- NOTE | 2020-07-02 20:28 | PC.NURSE ---
Around 1715 pt was noted to have some LUE edema with redness and warmth. Dr. Simeon was made aware at 171 and a STAT U/S was ordered to rule out DVT. Passed along to next shift to continue to monitor.
[2020-07-02 20:50] LABS: Glucose, Whole Blood 134 mg/dL (60-115)
[2020-07-02] MEDS: 0.9 % Sodium Chloride 1,000 ML 50 ML IVCONT (22:12)
[2020-07-03] VITALS (19 sets, daily range): BP systolic 70–117; BP diastolic 30–78; PULSE 98–125; RESP 10–24; TEMP 35.8–36.6; O2SAT 88–99
[2020-07-03 00:48] LABS: Creatinine Urine 39.46 mg/dL
--- NOTE | 2020-07-03 02:54 | MHC.PIE ---
P: Pt BP at 1930 79/53 with automatic cuff, retaken 82/54 manual. I: notified, changed 100ml/hr Normal saline to 50mL/hr normal saline. Elevate legs. E: BP retaken at 2230, 98/51.
[2020-07-03] MEDS: 0.9 % Sodium Chloride 1,000 ML 50 ML IVCONT (03:12)
[2020-07-03 06:04] LABS: MANUAL DIFF FLAG NO
[2020-07-03 06:14] LABS: Basophils Percent Auto 0.1 % (0-2); Eosinophils Percent Auto 0.1 % (0-4); Hematocrit 32.9 % (37-47); Hemoglobin 9.7 g/dl (12.0-16.0); Imm Gran Abs Auto 0.05 X10*3/uL (0.00-0.03); Imm Gran Pct Auto 0.6 % (0.0-0.4); Lymphocytes Percent Auto 10.7 % (20-40); Mean Corpuscular HGB Conc 29.5 g/dl (31.0-35.0); Mean Corpuscular Hemoglobin 25.7 pg (27.0-33.0); Monocytes Absolute Auto 0.9 X10*3/uL (0.1-1.2); Monocytes Percent Auto 10.3 % (2-11); Neutrophils Percent Auto 78.2 % (45-73); Platelet Count 203 X10*3/uL (160-400); Red Blood Count 3.78 X10*6/uL (4.20-5.50); Red Cell Distribution Width 16.6 % (11.0-16.0)
[2020-07-03 06:37] LABS: Anion Gap 20 (12-20); Blood Urea Nitrogen 74 mg/dL (9-16); Calcium 7.4 mg/dL (8.4-10.2); Carbon Dioxide 13 mmol/L (22-29); Chloride 103 mmol/L (96-108); Creatinine Clr Calc Pharmacy 15.6; Estimated Glomerular Filt Rate 12; Glucose Random 143 mg/dL (60-115); Potassium 5.5 mmol/L (3.3-5.1); Sodium 130 mmol/L (135-145)
[2020-07-03] MEDS: 0.9 % Sodium Chloride 500 ML 250 ML IV (06:37)
[2020-07-03] MEDS: Albumin Human 25 % 100 ML IV ×2 (07:34→08:27)
[2020-07-03 07:47] LABS: Alanine Aminotransferase 24 U/L (0-31); Albumin Level 3.2 g/dL (3.5-5.0); Alkaline Phosphatase 70 U/L (39-117); Aspartate Amino Transferase 33 U/L (5-31); Bilirubin Direct 1.4 mg/dL (0.0-0.5); Bilirubin Total 1.7 mg/dL (0.0-1.0); Total Protein 7.4 g/dL (6.5-8.0)
--- NOTE | 2020-07-03 07:47 | CA_ITS ---
Transthoracic Echocardiogram Patient (Last, First, Middle): Tracy Hoffmann, Gender: Female Date of : 1955 Age: 65 Procedure Date: 07/03/2020 Procedure Type: Transthoracic Echocardiogram Location: ICU Height: 160.02 cm Weight: 82.56 kg BSA: 1.86 m2 Heart Rate: bpm BP: 113 / 65 mmHg [employer] Instructor: BREA Barger MD: Mina Simeon MD Symptoms: hypotension Study Quality: Fair/Contrast ECG Rhythm: Atrial Fibrillation Conclusions: - The left ventricular systolic function is severely decreased. The visually estimated ejection fraction is between 20-25%. - Mildly increased right ventricular cavity size. - Severe biatrial enlargement. - There is mild mitral valve regurgitation. - There is mild to moderate tricuspid valve regurgitation. - The right ventricular systolic pressure is 35 mmHg. Top normal RVSP 35mmHg. - The inferior vena cava is dilated and does not collapse with inspiration. - There is a small loculated pericardial effusion overlying the right atrium. Findings Procedure Information Contrast agent, definity, is being given per protocol without apparent complications. Left Ventricle Normal left ventricular cavity size. There is normal left ventricular wall thickness. The left ventricular systolic function is severely decreased. The visually estimated ejection fraction is between 20-25%. There is severe global hypokinesis. Diastolic function is indeterminate on the basis of available data. Right Ventricle Mildly increased right ventricular cavity size. There is normal right ventricular systolic function. Atria Severe biatrial enlargement. Aortic Valve There is a normal trileaflet aortic valve. There is mild calcification of the aortic valve. There is no aortic valve stenosis. There is no aortic valve regurgitation. Mitral Valve There is mild mitral annular calcification. There is mild mitral valve regurgitation. There is no mitral valve stenosis. Pulmonic Valve The pulmonic valve was not well visualized. Tricuspid Valve There is mild to moderate tricuspid valve regurgitation. The right ventricular systolic pressure is 35 mmHg. Top normal RVSP 35mmHg. Great Vessels There is mild dilatation of the ascending aorta measuring 3.80 cm. Venous The inferior vena cava is dilated and does not collapse with inspiration. Pericardium/Pleural There is a small loculated pericardial effusion overlying the right atrium. Prior Study Comparison Changes noted compared to prior study dated: 01/16/2019. LVEF is worse. Measurements 2D Linear Measurements IVSd: 0.90 0.6-0.9/0.6-1.0 cm LVIDd: 4.46 3.9-5.3/4.2-5.9 cm LVIDd Index: 2.40 2.4-3.2/2.2-3.1 cm/m2 LVIDs: 3.93 2.0-3.6 cm LVPWd: 0.94 0.7-1.1 cm Ao Root: 3.30 2.1-3.5 cm LA Diam: 3.90 2.7-3.8/3.0-4.0 cm LAIDs Index: 2.10 1.5-2.3 cm/m2 LV Mass: 167.29 67-162/88-224 g LV Mass Index: 89.94 43-95/49-115 g/m2 LVOT Diam: 2.10 3.0+(-)1.3 cm 2D Systolic Function EF 4C: 41.70 >55% EF 2C: 29.90 >55% Aortic Valve AoV Pk Alexander: 1.34 AoV Mn Alexander: 0.85 AoV VTI: 0.22 AoV Pk Grad: 7.00 Aov Mn Grad: 3.00 THAO Cont.VTI: 2.58 LVOT LVOT Pk Alexander: 1.06 LVOT Mn Alexander: 0.65 LVOT VTI: 0.17 LVOT Pk Grad: 4.00 LVOT Mn Grad: 2.00 LVOT Diam: 2.10 LVOT Area: 3.46 Tricuspid Valve TR Pk Alexander: 2.23 TR Pk Grad: 20.00 RA Press: 15.00 RVSP: 35.00 Great Vessels Aorta Ao Root-2D: 3.30 2.0-3.7 cm Ao Asc: 3.80 2.1-3.4 cm Updated in Other Vendor System with Status of Final Issac Martin MD electronically signed on 07/03/2020 12:06:29 PM with status of Final
[2020-07-03 07:48] LABS: Glucose, Whole Blood 137 mg/dL (60-115)
[2020-07-03 08:10] LABS: INTERNATIONAL NORM RATIO 1.8 (0.9-1.1); Prothrombin Time 21.7 SEC (10.8-13.0)
[2020-07-03 08:19] LABS: Lactic Acid 1.6 mmol/L (0.5-2.0)
[2020-07-03 08:26] LABS: Glucose, Whole Blood 145 mg/dL (60-115)
[2020-07-03] MEDS: ondansetron HCL 4 MG/2 ML VIAL IVPUSH ×2 (08:33→23:55)
--- NOTE | 2020-07-03 10:03 | MHC.CLN ---
f/u pt transferred to ICU current diet on hold previous diet of 1500dm 2gm Na appropriate following
--- NOTE | 2020-07-03 10:48 | ECG_ITS ---
Test Reason : ? ISCHEMIA Blood Pressure : / mmHG Vent. Rate : 092 BPM Atrial Rate : 098 BPM P-R Int : 000 ms QRS Dur : 098 ms QT Int : 376 ms P-R-T Axes : 000 -43 027 degrees QTc Int : 464 ms Atrial fibrillation Left axis deviation Low voltage QRS Incomplete right bundle branch block Inferior infarct , age undetermined Possible Anterolateral infarct , age undetermined Abnormal ECG No significant changes when compared with the previous EKG of jun 29 2020 Referred By: Ricky Palafox Electronically Signed By:JM HIRSCH
[2020-07-03 11:04] LABS: Glucose, Whole Blood 142 mg/dL (60-115)
--- NOTE | 2020-07-03 11:05 | PM.CNCAR ---
History of Present Illness History of Present Illness Date of Service: 07/03/20 Consult reason: hypotension Chief complaint: dry cough Narrative: This is a consult for hypotension. Patient has chronic liver disease/cirrhosis. She actually goes to [facility] and is listed for liver transplant. Current admission is for a dry cough. She also had some low-grade temp and dark stools. COVID testing itself was negative. She was admitted for these issues. She has atrial fibrillation but I am not entirely clear if she is paroxysmal or persistent. The prior EKG that we have from 2019 shows sinus but patient has no symptoms and hence not clear if she went into atrial fibrillation at some point in the past. In any case she was further admitted and it looks like she went for GI workup for suspected GI bleeding. Today morning, she apparently became very hypotensive and that led to transfer to the ICU. Patient has no sensation of palpitations even though she is in atrial fibrillation. Otherwise she has no anginal-type symptoms but she does feel short of breath. She has a cardiomyopathy but etiology is not known and she clearly has had workup at [facility] as part of lower transplant evaluation but we do not have those results and hence ischemia status is unknown. Review of Systems Review of Systems: Yes all other systems are reviewed and are negative Constitutional: Constitutional: Reports as per HPI, Reports no additional constitutional complaints, Reports fatigue and Reports weakness Cardiovascular: Cardiovascular: Reports as per HPI, Reports no additional cardiovascular complaints, Denies acrocyanosis, Denies cool extremities, Denies painful fingertips, Denies chest pain, Denies chest pain at rest, Denies diaphoresis, Denies syncope, Denies irregular heart rhythm, Denies claudication, Denies leg edema, Denies lightheadedness, Denies palpitations, Reports dyspnea and Reports dyspnea on exertion Respiratory: Respiratory: Reports cough, Reports dyspnea and Reports dyspnea on exertion Neurologic: Denies syncope and Reports weakness Endocrine: Endocrine: Reports fatigue and Denies palpitations [facility] Past Medical History Medical History (Updated 07/03/20 @ 11:19 by Issac Martin MD) Acute GI bleeding Afib Anemia Asthma with COPD B12 deficiency Chronic pruritus JANIE (generalized anxiety disorder) H/O chronic heart failure H/O gastroesophageal reflux (GERD) HTN (hypertension) Hypothyroidism Pneumonia Primary biliary cirrhosis Thrombocytopenia Surgical History Surgical History (Updated 07/01/20 @ 10:40 by Joann Gonzalez) H/O bilateral cataract extraction H/O umbilical hernia repair S/P laparoscopic cholecystectomy S/P reduction mammoplasty Social History Social History Household Members: Spouse Housing: House Do you presently have visiting nurse or other home services: No Smoking Status: Former smoker Smoked in Last 30 Days: No Patient Interested in Nicotine Replacement: No Patient Given Instructions on How to Stop Smoking: No Second Hand Smoke Exposure: No Use of substances other than those prescribed or required for medical reasons: No Currently Displaying Signs/Symptoms of Drug Intoxication Withdrawal: No Have you been hit, kicked, punched, or otherwise hurt by someone within the past year? If so, by whom?: No Do you feel safe in your current relationship?: No Is there a partner from a previous relationship who is making you feel unsafe now?: No Are you made to feel afraid or neglected: No Advance Directives: No Advance Directives Information Provided: No Do you have thoughts of harming others: None Do you have a plan to hurt others: No Plan Recently lost weight without trying: No service: No Current occupational status: unemployed Meds Allergies Allergy/AdvReac Type Severity Reaction Status Date / Time Erythromycin Allergy Unknown nausea and Verified 03/18/20 16:13 vomiting erythromycin base Allergy Unknown UNKNOWN Verified 03/18/20 16:13 [ERYTHROMYCIN BASE] latex [LATEX] Allergy Unknown UNKNOWN Verified 03/18/20 16:13 obeticholic acid [Ocaliva] Allergy Unknown syncope Verified 03/18/20 16:13 Sulfa (Sulfonamide Allergy Unknown nausea and Verified 03/18/20 16:13 Antibiotics) vomiting, vomiting sulfamethoxazole Allergy Unknown UNKNOWN Verified 03/18/20 16:13 [From BACTRIM] trimethoprim [From BACTRIM] Allergy Unknown UNKNOWN Verified 03/18/20 16:13 adhesive tape [TAPE,ADHESIVE] AdvReac Unknown RASH Verified 03/18/20 16:13 Erythrocin Allergy Unknown vomiting Uncoded 08/22/18 00:00 Latex Allergy Unknown rash Uncoded 01/14/20 00:00 surgical tape AdvReac Unknown rash Uncoded 01/14/20 00:00 Home Medications Medication Instructions Recorded Confirmed Type albuterol sulfate 90 mcg/actuation 2 puff INHALATION Q6H PRN 04/30/20 06/29/20 History aerosol inhaler aspirin 325 mg tablet 325 mg PO DAILY 04/30/20 06/29/20 History cyanocobalamin (vitamin B-12) 1,000 mcg IM QMONTH 04/30/20 06/29/20 History 1,000 mcg/mL injection solution furosemide 20 mg tablet 20 mg PO DAILY 04/30/20 06/29/20 History lisinopril 2.5 mg tablet 2.5 mg PO DAILY 04/30/20 06/29/20 History metoprolol succinate 100 mg 100 mg PO DAILY 04/30/20 06/29/20 History tablet,extended release 24 hr spironolactone 25 mg tablet 50 mg PO DAILY 04/30/20 06/29/20 History ursodiol 300 mg capsule 600 mg PO TID 04/30/20 06/29/20 History omeprazole 20 mg PO DAILY 06/29/20 06/29/20 History paroxetine HCl 1 tab PO QAM 06/29/20 06/29/20 History Physical Exam Vital Signs: Vital Signs: Last Vital Signs Temp 97.8 F 07/03/20 08:10 Pulse 106 H 07/03/20 08:39 Resp 24 H 07/03/20 08:39 BP 95/59 L 07/03/20 08:39 Pulse Ox 93 07/03/20 08:39 Body Mass Index 32.4 Const: General: cooperative, comfortable and no acute distress Orientation/consciousness: patient oriented x3 HENMT: Other: Unremarkable Neck: Neck: Yes normal visual inspection Chest: Chest palpation & inspection: normal inspection of the chest Resp: Auscultation: crackles and no wheezes Cardio: Jugular venous distension: no JVD Palpation: normal PMI Heart sounds: S1 normal heart sound present, S2 normal heart sound present, no gallops, no murmurs and no rubs GI: Palpation (GI): Soft to palpation Back/Spine/Pelvis: Other: unremarkable Skin: General skin exam: no rashes or lesions noted Neuro: General: patient oriented x3 Extrem: General: Yes edema Psych: Mental Status: mental status grossly normal Results Labs and Meds Result diagrams: 07/03/20 05:57 07/03/20 05:57 Lab results: Laboratory Results - last 24 hr 07/02/20 07/02/20 07/02/20 11:21 16:34 20:20 WBC RBC Hgb Hct MCV MCH MCHC RDW Plt Count MPV Immature Gran % (Auto) Neut % (Auto) Lymph % (Auto) [place] % (Auto) Eos % (Auto) Baso % (Auto) Lymph # (Auto) [place] # (Auto) Eos # (Auto) Baso # (Auto) Abs Immat Gran (auto) Absolute Neuts (auto) Absolute Nucleated RBC Nucleated RBC % (auto) PT INR Sodium Potassium Chloride Carbon Dioxide Anion Gap BUN Creatinine Estim Creat Clear Calc Estimated GFR POC Glucose 136 H 147 H 134 H Random Glucose Lactic Acid Calcium Total Bilirubin Direct Bilirubin AST ALT Alkaline Phosphatase Total Protein Albumin Ur Random Sodium Urine Creatinine 07/03/20 07/03/20 07/03/20 00:04 05:57 05:57 WBC 9.0 RBC 3.78 L Hgb 9.7 L Hct 32.9 L MCV 87.0 MCH 25.7 L MCHC 29.5 L RDW 16.6 H Plt Count 203 MPV 10.0 Immature Gran % (Auto) 0.6 H Neut % (Auto) 78.2 H Lymph % (Auto) 10.7 L [place] % (Auto) 10.3 Eos % (Auto) 0.1 Baso % (Auto) 0.1 Lymph # (Auto) 1.0 L [place] # (Auto) 0.9 Eos # (Auto) 0.0 Baso # (Auto) 0.0 Abs Immat Gran (auto) 0.05 H Absolute Neuts (auto) 7.0 Absolute Nucleated RBC 0.000 Nucleated RBC % (auto) 0.0 PT INR Sodium 130 L Potassium 5.5 H Chloride 103 Carbon Dioxide 13 L Anion Gap 20 BUN 74 H Creatinine 3.70 H Estim Creat Clear Calc 15.6 Estimated GFR 12 POC Glucose Random Glucose 143 H Lactic Acid Calcium 7.4 L Total Bilirubin 1.7 H Direct Bilirubin 1.4 H AST 33 H ALT 24 Alkaline Phosphatase 70 Total Protein 7.4 Albumin 3.2 L Ur Random Sodium 118.0 Urine Creatinine 39.46 07/03/20 07/03/20 07/03/20 07:40 07:45 07:45 WBC RBC Hgb Hct MCV MCH MCHC RDW Plt Count MPV Immature Gran % (Auto) Neut % (Auto) Lymph % (Auto) [place] % (Auto) Eos % (Auto) Baso % (Auto) Lymph # (Auto) [place] # (Auto) Eos # (Auto) Baso # (Auto) Abs Immat Gran (auto) Absolute Neuts (auto) Absolute Nucleated RBC Nucleated RBC % (auto) PT 21.7 H D INR 1.8 H Sodium Potassium Chloride Carbon Dioxide Anion Gap BUN Creatinine Estim Creat Clear Calc Estimated GFR POC Glucose 137 H Random Glucose Lactic Acid 1.6 Calcium Total Bilirubin Direct Bilirubin AST ALT Alkaline Phosphatase Total Protein Albumin Ur Random Sodium Urine Creatinine 07/03/20 07/03/20 08:21 11:00 WBC RBC Hgb Hct MCV MCH MCHC RDW Plt Count MPV Immature Gran % (Auto) Neut % (Auto) Lymph % (Auto) [place] % (Auto) Eos % (Auto) Baso % (Auto) Lymph # (Auto) [place] # (Auto) Eos # (Auto) Baso # (Auto) Abs Immat Gran (auto) Absolute Neuts (auto) Absolute Nucleated RBC Nucleated RBC % (auto) PT INR Sodium Potassium Chloride Carbon Dioxide Anion Gap BUN Creatinine Estim Creat Clear Calc Estimated GFR POC Glucose 145 H 142 H Random Glucose Lactic Acid Calcium Total Bilirubin Direct Bilirubin AST ALT Alkaline Phosphatase Total Protein Albumin Ur Random Sodium Urine Creatinine ECG Attestation: I personally reviewed and interpreted this ECG as follows: Interpretation: EKG today shows atrial fibrillation at 92/Min; incomplete right bundle-branch block. Cannot exclude old inferior infarct or anterior infarct. EKG from June 29 shows similar findings. Previous EKG from 2019 shows sinus rhythm at 57/Min but she still shows the inferior and anterolateral changes. Imaging Radiologist's impression: Impressions Venous Duplex 07/02/20 00:00 IMPRESSION: No DVT demonstrated in the left upper extremity Assessment and Plan (1) Hypotension: Qualifiers: Hypotension type: unspecified hypotension type Qualified Code(s): I95.9 - Hypotension, unspecified Status: Acute (2) Atrial fibrillation with rapid ventricular response: Status: Acute (3) Acute GI bleeding: Problem details: S/p 1 unit PRBC 06/29/20 Status: Acute (4) Pneumonia: Qualifiers: Laterality: bilateral Lung location: unspecified part of lung Pneumonia type: due to unspecified organism Qualified Code(s): J18.9 - Pneumonia, unspecified organism Status: Acute (5) Acute kidney injury: Status: Acute (6) Primary biliary cirrhosis: Status: Acute Clinically, she does not appear to be pure cardiogenic shock. If she indeed went into atrial fibrillation in the last few days, that could potentially lead to hypotension in the background of cardiomyopathy. As she has no symptoms from it like palpitations, difficult to say if the atrial fibrillation is chronic versus new from last few days. Prior EKG from 2019 showed sinus rhythm but we do not have anything in the interim. Otherwise the cardiomyopathy itself is chronic and hence I doubt that to be the primary etiology. She does have chronic liver disease/cirrhosis which itself is a risk for hypertension. Volume contraction from GI blood loss, undiagnosed atypical infection and potentially some combination of all of these is leading to her clinical picture of hypotension and renal failure. Her rate is not too fast and just about 100 or so/Min. Will hold cardioversion especially in the context of GI blood loss. Empiric pressed support. Would recommend discussing with ICU team at [facility] where she is a transplant candidate for liver transplant. With her multiple medical comorbidities including advanced liver disease, acute renal failure, cardiomyopathy, she will be best managed at a tertiary care center and hence recommend transfer. Discussed with malt house supervisor in detail. Total time in this encounter including patient assessment, review of data, discussion with ICU team, coordinating care- 45minutes.
--- NOTE | 2020-07-03 11:08 | HO.PM.IMPN ---
Subjective Subjective Date of Service: 07/03/20 Interval History: Overnight BP 84-98/45-55. 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 This am BP 70/30->78/36 after 500 mL NS bolus. Pt endorses lightheadedness and nausea. Denies dyspnea or chest pain. No hematochezia or melena. No abdominal pain. Very little urine output and urine is dark and concentrated. Physical Exam Vital Signs: Vital Signs: Last Vital Signs Temp 97.4 F 07/03/20 11:07 Pulse 99 07/03/20 11:00 Resp 18 07/03/20 11:00 BP 117/66 07/03/20 11:00 Pulse Ox 90 L 07/03/20 11:07 Body Mass Index 32.4 Gen: somewhat ill-appearing HEENT: sclera anicteric, pale and moist mucous membranes Neck: supple Lungs: diminished at bases bilaterally Heart: regular rate and rhythm, no murmurs Abd: soft, non-tender, non-distended : Gómez draining very dark urine Ext: 1+ edema to legs Skin: warm/well-perfused Neuro: alert and oriented x3, no focal findings Psych: appropriate affect Objective Data Current Medications Generic Name Dose Route Start Last Admin Trade Name Freq PRN Reason Stop Dose Admin Acetaminophen 650 mg 06/29/20 19:32 Acetaminophen 325 Mg Tablet PO Q4H PRN pain or fever Albuterol Sulfate 2 puff 06/29/20 16:41 Albuterol Sulfate 90 Mcg 8 Gm Inhaler INHALE Q6H PRN Cough Benzonatate 100 mg 06/30/20 10:49 Benzonatate 100 Mg Capsule PO TID PRN Cough Cyanocobalamin 1,000 mcg 07/03/20 10:00 07/03/20 10:57 Cyanocobalamin (Vitamin B-12) 1,000 Mcg/Ml Vial IM Not Given Q30D RADHA Guaifenesin/Dextromethorphan 5 ml 06/30/20 10:49 Guaifenesin Dm 100/10/5 Ml 5 Ml Syrup PO Q4H PRN cough Hydroxyzine HCl 25 mg 06/29/20 16:41 Hydroxyzine Hcl 25 Mg Tablet PO Q6H PRN itching Sodium Chloride 1,000 mls @ 100 mls/hr 07/01/20 10:45 07/03/20 04:14 Ns IVCONT Not Given .Q10H [facility] Sodium Chloride 1,000 mls @ 50 mls/hr 07/02/20 20:00 07/03/20 07:34 Ns IVCONT 0 mls/hr .Q20H [facility] Infusion Levofloxacin 500 mg in 100 mls @ 100 mls/hr 07/04/20 16:00 Levaquin IV Q2D [facility] Norepinephrine Bitartrate 8 mg in 250 mls @ 0 mls/hr 07/03/20 10:15 Levophed IVCONT .Q0M [facility] Protocol Per Protocol Insulin Human Lispro 0 unit 06/29/20 21:00 07/03/20 07:45 Insulin Lispro 100 Unit/Ml 3 Ml Vial SUBCUT Not Given QIDACHS [facility] Protocol Levothyroxine Sodium 175 mcg 06/30/20 09:00 07/03/20 10:50 Levothyroxine Sodium 175 Mcg Tablet PO Not Given DAILY [facility] Lorazepam 0.5 mg 06/29/20 16:41 06/29/20 23:45 Lorazepam 0.5 Mg Tablet PO 0.5 mg DAILY PRN Administration anxiety Metoclopramide HCl 5 mg 06/30/20 04:33 06/30/20 05:30 Metoclopramide Hcl 10 Mg/2 Ml Vial IVPUSH 5 mg ONCE PRN Administration Nausea and Vomiting Midodrine 5 mg 07/03/20 09:00 07/03/20 10:50 Midodrine Hcl 5 Mg Tablet PO Not Given TID [facility] Ondansetron HCl 4 mg 06/30/20 13:40 07/03/20 08:33 Ondansetron Hcl 4 Mg/2 Ml Vial IVPUSH 4 mg Q8H PRN Administration Nausea Ondansetron HCl 4 mg 07/01/20 10:56 Ondansetron Hcl 4 Mg/2 Ml Vial IVPUSH ONCE PRN Nausea and Vomiting Paroxetine HCl 40 mg 06/30/20 09:00 07/03/20 10:51 Paroxetine Hcl 40 Mg Tablet PO Not Given DAILY [facility] Sodium Chloride 3 ml 06/30/20 00:00 07/03/20 07:26 0.9 % Sodium Chloride Flush 3 Ml Syringe IVFLUSH Not Given QSHIFT [facility] Ursodiol 600 mg 06/29/20 21:00 07/03/20 10:51 Ursodiol 300 Mg Capsule PO Not Given TID RADHA Labs CBC & Chem 7: 07/03/20 05:57 07/03/20 05:57 Microbiology Microbiology Results: Microbiology 06/29/20 14:58 Blood - Venous Blood Culture - Preliminary No growth after 48 hours. 06/29/20 14:58 Blood - Venous Blood Culture - Preliminary No growth after 48 hours. Assessment and Plan (1) Acute GI bleeding: Status: Acute (2) Pneumonia: Status: Acute Assessment and Plan: hospital d#5 65yo F with PBC on transplant list, persistent AF s/p Watchman device, asthma, DM2 admitted for AF/RVR, GI bleed, ground glass pneumonia now with HAYLEY and fluid-resistant hypotension # hypotension - will give 50g albumin and start midodrine. will transfer to ICU for norepinephrine gtt. order TTE. # HAYLEY - FENa 8.5% suggesting postobstructive but no hydronephrosis on US though Gómez not identified; will obtain CT A/P. ?ATN related to hypotension/infection. ?hepatorenal though Partha not consistent and liver disease not that advanced, but will start albumin and midodrine as above. discuss with Dr Arrington from Nephrology. # hyperK - will give dose of Kayexelate. # GI bleed on ASA - EGD done by Dr Alexander / showing: Grade 1 nonbleeding esophageal varices Gastric antral vascular ectasia without bleeding portal hypertensive gastropathy, mild - continue to hold ASA for 7d per Dr Alexander then resume # acute blood loss anemia - Hb stable s/p 1u pRBCs transfused 06/29/20 # ground-glass pneumonia - not hypoxic.? COVID PCR x2 negative; IgG negative.? rest of respiratory pathogen panel negative.? levofloxacin d#5. BCx negative. Trend PCT. Legionella UAg pending. # AF/RVR - hold metoprolol succinate due to hypotension; hold ASA due to GIB. TTE as above. # chronic HFrEF - hold spironolactone + metoprolol succinate due to hypotension # cirrhosis/PBC - continue ursodiol.? on [facility] liver transplant list. # DM2 - correction-dose lispro # hypothyroidism - continue LT4 # mood disorder - continue paroxetine # VTE ppx - SCDs
[2020-07-03 11:32] LABS: Base Excess VBG -14.2 mmol/L; HCO3 VBG 14 mmol/L; PCO2 VBG 41 mmHg; PO2 VBG 50 mmHg
[2020-07-03 11:33] LABS: pH VBG 7.13 (7.32-7.43)
--- NOTE | 2020-07-03 11:40 | PM.PNNEP ---
Subjective Subjective Date of Service: 07/03/20 Interval history: Seen this AM. Spoke to hospitalist and Technical Staff Assistant. Oliguric. On Nor epinephrine Physical Exam Vital Signs: Vital Signs: Last Vital Signs Temp 97.4 F 07/03/20 11:07 Pulse 99 07/03/20 11:00 Resp 18 07/03/20 11:00 BP 117/66 07/03/20 11:00 Pulse Ox 90 L 07/03/20 11:07 Body Mass Index 32.4 Const: General: cooperative and ill appearing Orientation/consciousness: patient oriented x3 Neck: Neck: Yes supple Resp: Auscultation: diminished lung sounds Cardio: Heart sounds: no rubs GI: Palpation (GI): Soft to palpation Neuro: General: patient oriented x3 and moves all extremities Objective Data Labs CBC & Chem 7: 07/03/20 05:57 07/03/20 05:57 Labs: Laboratory Results - last 24 hr 07/02/20 07/02/20 07/02/20 11:21 16:34 20:20 WBC RBC Hgb Hct MCV MCH MCHC RDW Plt Count MPV Immature Gran % (Auto) Neut % (Auto) Lymph % (Auto) [place] % (Auto) Eos % (Auto) Baso % (Auto) Lymph # (Auto) [place] # (Auto) Eos # (Auto) Baso # (Auto) Abs Immat Gran (auto) Absolute Neuts (auto) Absolute Nucleated RBC Nucleated RBC % (auto) PT INR VBG pH VBG pCO2 VBG pO2 VBG HCO3 VBG O2 Saturation VBG Base Excess Sodium Potassium Chloride Carbon Dioxide Anion Gap BUN Creatinine Estim Creat Clear Calc Estimated GFR POC Glucose 136 H 147 H 134 H Random Glucose Lactic Acid Calcium Total Bilirubin Direct Bilirubin AST ALT Alkaline Phosphatase Troponin I High Sens Total Protein Albumin Ur Random Sodium Urine Creatinine 07/03/20 07/03/20 07/03/20 00:04 05:57 05:57 WBC 9.0 RBC 3.78 L Hgb 9.7 L Hct 32.9 L MCV 87.0 MCH 25.7 L MCHC 29.5 L RDW 16.6 H Plt Count 203 MPV 10.0 Immature Gran % (Auto) 0.6 H Neut % (Auto) 78.2 H Lymph % (Auto) 10.7 L [place] % (Auto) 10.3 Eos % (Auto) 0.1 Baso % (Auto) 0.1 Lymph # (Auto) 1.0 L [place] # (Auto) 0.9 Eos # (Auto) 0.0 Baso # (Auto) 0.0 Abs Immat Gran (auto) 0.05 H Absolute Neuts (auto) 7.0 Absolute Nucleated RBC 0.000 Nucleated RBC % (auto) 0.0 PT INR VBG pH VBG pCO2 VBG pO2 VBG HCO3 VBG O2 Saturation VBG Base Excess Sodium 130 L Potassium 5.5 H Chloride 103 Carbon Dioxide 13 L Anion Gap 20 BUN 74 H Creatinine 3.70 H Estim Creat Clear Calc 15.6 Estimated GFR 12 POC Glucose Random Glucose 143 H Lactic Acid Calcium 7.4 L Total Bilirubin 1.7 H Direct Bilirubin 1.4 H AST 33 H ALT 24 Alkaline Phosphatase 70 Troponin I High Sens Total Protein 7.4 Albumin 3.2 L Ur Random Sodium 118.0 Urine Creatinine 39.46 07/03/20 07/03/20 07/03/20 05:57 07:40 07:45 WBC RBC Hgb Hct MCV MCH MCHC RDW Plt Count MPV Immature Gran % (Auto) Neut % (Auto) Lymph % (Auto) [place] % (Auto) Eos % (Auto) Baso % (Auto) Lymph # (Auto) [place] # (Auto) Eos # (Auto) Baso # (Auto) Abs Immat Gran (auto) Absolute Neuts (auto) Absolute Nucleated RBC Nucleated RBC % (auto) PT INR VBG pH VBG pCO2 VBG pO2 VBG HCO3 VBG O2 Saturation VBG Base Excess Sodium Potassium Chloride Carbon Dioxide Anion Gap BUN Creatinine Estim Creat Clear Calc Estimated GFR POC Glucose 137 H Random Glucose Lactic Acid 1.6 Calcium Total Bilirubin Direct Bilirubin AST ALT Alkaline Phosphatase Troponin I High Sens 7.0 Total Protein Albumin Ur Random Sodium Urine Creatinine 07/03/20 07/03/20 07/03/20 07:45 08:21 11:00 WBC RBC Hgb Hct MCV MCH MCHC RDW Plt Count MPV Immature Gran % (Auto) Neut % (Auto) Lymph % (Auto) [place] % (Auto) Eos % (Auto) Baso % (Auto) Lymph # (Auto) [place] # (Auto) Eos # (Auto) Baso # (Auto) Abs Immat Gran (auto) Absolute Neuts (auto) Absolute Nucleated RBC Nucleated RBC % (auto) PT 21.7 H D INR 1.8 H VBG pH VBG pCO2 VBG pO2 VBG HCO3 VBG O2 Saturation VBG Base Excess Sodium Potassium Chloride Carbon Dioxide Anion Gap BUN Creatinine Estim Creat Clear Calc Estimated GFR POC Glucose 145 H 142 H Random Glucose Lactic Acid Calcium Total Bilirubin Direct Bilirubin AST ALT Alkaline Phosphatase Troponin I High Sens Total Protein Albumin Ur Random Sodium Urine Creatinine 07/03/20 11:24 WBC RBC Hgb Hct MCV MCH MCHC RDW Plt Count MPV Immature Gran % (Auto) Neut % (Auto) Lymph % (Auto) [place] % (Auto) Eos % (Auto) Baso % (Auto) Lymph # (Auto) [place] # (Auto) Eos # (Auto) Baso # (Auto) Abs Immat Gran (auto) Absolute Neuts (auto) Absolute Nucleated RBC Nucleated RBC % (auto) PT INR VBG pH 7.13 L* VBG pCO2 41 VBG pO2 50 VBG HCO3 14 VBG O2 Saturation 72.0 VBG Base Excess -14.2 Sodium Potassium Chloride Carbon Dioxide Anion Gap BUN Creatinine Estim Creat Clear Calc Estimated GFR POC Glucose Random Glucose Lactic Acid Calcium Total Bilirubin Direct Bilirubin AST ALT Alkaline Phosphatase Troponin I High Sens Total Protein Albumin Ur Random Sodium Urine Creatinine Microbiology Microbiology Results: Microbiology 06/29/20 14:58 Blood - Venous Blood Culture - Preliminary No growth after 48 hours. 06/29/20 14:58 Blood - Venous Blood Culture - Preliminary No growth after 48 hours. Assessment & Plan Assessment and plan (1) Acute kidney injury: Problem details: Acute Kidney Injury due to reduced renal perfusion with resultant tubular injury. Unlikely HRS. DDx- post infectious GN, pulmonary renal syndrome, IgA nephropathy ( ? crescentic)- All these unlikely; Investigations in progress. Metabolically acidotic. Lactate OK. Needs Bicarb supplementation, CT scan abdomen, Chest without contrast, U/A, blood cultures, broad spectrum antibiotics. Likely will need renal replacement therapy tomorrow if she does not improve. Shall follow along Status: Acute Time Spent With Patient Time: Total time spent is greater than 50% in coordination of care (as documented) at patient's floor/unit and/or counseling patient:
[2020-07-03 11:43] LABS: D Dimer 2366 NG/ML
[2020-07-03 12:07] LABS: Lactic Acid 2.2 mmol/L (0.5-2.0)
--- NOTE | 2020-07-03 13:06 | P.PNCC_ITS ---
Subjective Subjective Date of Service: 07/04/20 Interval History: Mrs. Hoffmann was admitted to ICU this morning bec of hypotension and acute renal failure. The patient is a 65 yr-old woman with PMHx of bronchitis; primary biliary cirrhosis, on the transplant list [facility]; biventricular cardiomyopathy (see below; etiology unknown), followed by cardiology at [facility]; atrial fibrillation, status post Watchman procedure at [facility], no longer on anticoagulation but still on full dose aspirin; hypertension; diabetes; hypothyroidism; pancytopenia; iron deficiency anemia; and chronic pain. Surgical history is notable for cholecystectomy. Echo on 01/16/19 (reportedly done bec of ?fluid overload?) showed moderately decreased LV systolic function moderate global hypokinesis, with no regional wal l motion abnormalities. EF 30-35%. The right ventricle was reportedly normal in size and systolic function. There was severe biatrial enlargement. Aortic valve was normal. There was mild MR. There was moderate TR with a 2.5 m/sec gradient (26mm). The IVC was dilated less than 50% inspiratory collapse. CVP estimate was 15mm. RVSP estimate was 41 mm. On June 29, she presented to Urgent Care with a dry cough x 3 weeks, with low-grade temp and dark stools. No GI sx or recent travel or sick contacts. At Urgent Care, COVID test was negative, but her HR was in 140s, and she was sent to the ER. In the ED, HR was 130, afib. BP 108/70. Sat was 94-98% on room air. Stool was black, heme positive. Her hemoglobin was noted to be 7.9 (baseline 10-13), platelet count 73 (baseline 80-130). WBC was 3.6 (baseline 3-4). BUN/creat were 21/0.9 (baseline about 0.8, but she did have one value of 1.4 in 2019, ? reason). CXR was read as showing diffuse bilateral patchy ground-glass opaciti es (on my reading today, I?m unimpressed that there?s any acute dz on the film). She was given metoprolol, PPI, and Levaquin, and transfused 1 unit RBCs. Hb savi to 9.2, and has been stable since then. No clinical bleeding. Blood pressures were running mostly in the SBP 90-110 range. On July 01, renal indices bumped to 41/1.5. She underwent EGD that day, which showed Grade 1 nonbleeding esophageal varices, gastric antral vascular ectasia without bleeding, and mild portal hypertensive gastropathy. Later that day, SBP dropped into the 80?s, and was 70s-90?s all day. She was given more fluids. The next day, Jul 02, BUN/creat were up to 56/2.6. Renal US showed small left kidney, normal-appearing right kidney, w no hydronephrosis. SBP was 80-90s. This morning, BUN/creat were up to 74/3.7, potassium up to 5.5, bicarb up to 13, and she was aneuric. BP was down again into the 70?s. I was called and we transferred her down to ICU, where she was started on Levophed via periph line. On exam, she was alert and oriented, but very anxious. Breathing was normal. Peripheral digits were cold and it was difficult to get a Sat. When we got one, Sat was mid-high 90?s on 2L, up to 100% on 4L. Temp was 97.4 degrees. Heart rate about 100-110, atrial fibrillation. Blood pressure initially 78/36; up to 117/66 on Levophed 0.1 mcg. Breathing easy. There was 2 cm jugular venous distension with the head of the bed at about 40 degrees. Chest was clear to auscultation, with a normal expiratory phase rhythm was irregular with normal- sounding S1 and S2, with no murmur or gallops. The abdomen is moderately obese and benign. I do not feel liver nor can I tell if there is any ascites. She probably has at least 2+ anasarca. I do not see any infected skin lesions. IV sites in her left antecubital and right hand are okay. LABORATORY DATA: As below. Notably, white count this morning was 9.0 without a left shift, hemoglobin was 9.7. Platelet count up to 203. PTT 21/1.8. D-dimer 2366. Sodium 130, potassium 5.5, chloride 103, bicarb 13, BUN and creatinine 74/3.7, glucose 143, total bili 1.7 (down from 2.3), albumin 3.2, Troponin 7.0. Lactate was 1.6. EKG showed atrial fibrillation with loss of R-waves across the precordium; could not rule out inferior wall [place]. No acute ST changes. ECHOCARDIOGRAM for hemodynamic monitoring done by me: Image quality: Excellent. Limited study findings: 1. Wall thickness normal. 2. LV cavity size is top normal, with marked diffuse LV dysfxn. No clear RWMAs. EF about 30%. 3. RV size is definitely increased, with RV:LV cavity ratio about 1.0. In addition, at the bedside I viewed the full echo done by the [facility]. My re adin. LV wall thickness is normal. 2. LV cavity looks mildly dilated with severe LV dysfxn, EF 20-30%. 3. RV cavity is mildly enlarged, with prob normal fxn. 4. Severe biatrial enlargement. 5. AoV normal. 6. MV shows trace-1+ MR. 7. TV shows 2+ TR, with 2.3 m/sec jet (21 mm gradient) 8. IVC is dilated and noncontractile. RVSP estimate 36mm. Note: When I put her left subclavian CVL in, the blood return thru the needle was pulsatile, like it was arterial, altho it was dark and only savi to a column of about 15 cm thru a length of IV tubing. IMAGING: CXR shows mild chronic lung dz. There are bilat pleural eff, L>R, with a left basilar opacity of unclear significance. IMPRESSION: 1. Underlying PBC. 2. Atrial fibrillation. Not clear how long this has been going on since her Watchman procedure. Rate is reasonable, at the moment. With recent GI bleed, she?s not currently a candidate for anticoagulation. 3. Baseline biventricular CMOP of unknown etiology, but it?s not new. It?s worse though (both right and left heart) since the prev echo in December,. By trop, EKG, and echo, there?s no evidence of ischemia. 4. Refractory hypotension. The WBC and normal lactate, and along with lack of fever, altered MS, or tachypnea militate against sepsis.Given the echo, I wouldn?t give her fluids. Continue w Levophed for now. Consulted with Dr. Martin. He suggests against dobutamine. Normal lactate suggests that tissue perfusion is adequate, and this is not cardiogenic shock. Need to r/o PE. We?ll send a DDimer and BNP. I?ll try hydrocortisone if PE workup is negative. 5. R/o sepsis. I?m unimpressed by her admission CXR and today?s post-line placement CXR. Her breathing and clinical exam are inconsistent w pneumonia. We?ll send her for a noncontrast chest and abd/pelvis CT. BC?s x 2 and repeat lactate ordered. She?s covered with Levaquin for now. There is no evidence of any possible/potential Staph infection that needs immediate Vanco coverage. 6. HAYLEY. This is perhaps the main problem. This is ATN, not prerenal. Most likely 2? hypotension. She?s anuric with rising potassium. She?ll need dialysis tomorrow or possibly even today at this rate. She?s unable to take kayexelate bec she?s nauseous. We?ll give her Ca and bicarb and recheck chem 7 later. D/W Dr. Arrington. 7. GI bleed. Appears to have resolved. Continue PPI. Called [facility] for transfer to their liver transplant service. They're willing to take her, but won't have a bed for estimated 48 hrs. ADDENDUM at 6pm: DDimer positive, but perfusion scan negative. Chest CT shows no pneumonia. Abdom CT unremarkable. At this point, the only etiology for her hypotension appears to be vasogenic. Discussed with Dr. Snyder. For now, we?ll change her Levaquin to Doxycycline alone. Currently, the patient actually looks much better, feels better, and in fact, looks thoroughly nontoxic. BP is 116/51/72 on Levophed 0.2ug. But she?s making virtually no urine. Repeat labs from 1pm show BUN/creat 75/3.9, K steady at 5.5, bicarb 14 after 1 amp bicarb. Phos is 8.7. We?ll plan to put a temp dialysis catheter [facility] and dialyze her first thing in the morning. Critical care time (including extended chart review, discussion with multiple consults, attempted transfer to [facility], and hospital course summary; excluding procedures): 3+ hours. Physical Exam Vital Signs: Vital Signs: Last Vital Signs Temp 97.4 F 07/03/20 11:07 Pulse 108 H 07/03/20 12:00 Resp 10 L 07/03/20 12:00 BP 91/58 L 07/03/20 12:00 Pulse Ox 99 07/03/20 12:00 Body Mass Index 32.4 Objective Data Labs CBC & Chem 7: 07/04/20 05:08 07/04/20 05:08 Labs: Laboratory Results - last 24 hr 07/02/20 07/02/20 07/03/20 16:34 20:20 00:04 WBC RBC Hgb Hct MCV MCH MCHC RDW Plt Count MPV Immature Gran % (Auto) Neut % (Auto) Lymph % (Auto) [place] % (Auto) Eos % (Auto) Baso % (Auto) Lymph # (Auto) [place] # (Auto) Eos # (Auto) Baso # (Auto) Abs Immat Gran (auto) Absolute Neuts (auto) Absolute Nucleated RBC Nucleated RBC % (auto) PT INR D-Dimer VBG pH VBG pCO2 VBG pO2 VBG HCO3 VBG O2 Saturation VBG Base Excess Sodium Potassium Chloride Carbon Dioxide Anion Gap BUN Creatinine Estim Creat Clear Calc Estimated GFR POC Glucose 147 H 134 H Random Glucose Lactic Acid Calcium Total Bilirubin Direct Bilirubin AST ALT Alkaline Phosphatase Troponin I High Sens B-Natriuretic Peptide Total Protein Albumin Ur Random Sodium 118.0 Urine Creatinine 39.46 07/03/20 07/03/20 07/03/20 05:57 05:57 05:57 WBC 9.0 RBC 3.78 L Hgb 9.7 L Hct 32.9 L MCV 87.0 MCH 25.7 L MCHC 29.5 L RDW 16.6 H Plt Count 203 MPV 10.0 Immature Gran % (Auto) 0.6 H Neut % (Auto) 78.2 H Lymph % (Auto) 10.7 L [place] % (Auto) 10.3 Eos % (Auto) 0.1 Baso % (Auto) 0.1 Lymph # (Auto) 1.0 L [place] # (Auto) 0.9 Eos # (Auto) 0.0 Baso # (Auto) 0.0 Abs Immat Gran (auto) 0.05 H Absolute Neuts (auto) 7.0 Absolute Nucleated RBC 0.000 Nucleated RBC % (auto) 0.0 PT INR D-Dimer VBG pH VBG pCO2 VBG pO2 VBG HCO3 VBG O2 Saturation VBG Base Excess Sodium 130 L Potassium 5.5 H Chloride 103 Carbon Dioxide 13 L Anion Gap 20 BUN 74 H Creatinine 3.70 H Estim Creat Clear Calc 15.6 Estimated GFR 12 POC Glucose Random Glucose 143 H Lactic Acid Calcium 7.4 L Total Bilirubin 1.7 H Direct Bilirubin 1.4 H AST 33 H ALT 24 Alkaline Phosphatase 70 Troponin I High Sens 7.0 B-Natriuretic Peptide Cancelled Total Protein 7.4 Albumin 3.2 L Ur Random Sodium Urine Creatinine 07/03/20 07/03/20 07/03/20 07:40 07:45 07:45 WBC RBC Hgb Hct MCV MCH MCHC RDW Plt Count MPV Immature Gran % (Auto) Neut % (Auto) Lymph % (Auto) [place] % (Auto) Eos % (Auto) Baso % (Auto) Lymph # (Auto) [place] # (Auto) Eos # (Auto) Baso # (Auto) Abs Immat Gran (auto) Absolute Neuts (auto) Absolute Nucleated RBC Nucleated RBC % (auto) PT 21.7 H D INR 1.8 H D-Dimer 2366 VBG pH VBG pCO2 VBG pO2 VBG HCO3 VBG O2 Saturation VBG Base Excess Sodium Potassium Chloride Carbon Dioxide Anion Gap BUN Creatinine Estim Creat Clear Calc Estimated GFR POC Glucose 137 H Random Glucose Lactic Acid 1.6 Calcium Total Bilirubin Direct Bilirubin AST ALT Alkaline Phosphatase Troponin I High Sens B-Natriuretic Peptide Total Protein Albumin Ur Random Sodium Urine Creatinine 07/03/20 07/03/20 07/03/20 08:21 11:00 11:24 WBC RBC Hgb Hct MCV MCH MCHC RDW Plt Count MPV Immature Gran % (Auto) Neut % (Auto) Lymph % (Auto) [place] % (Auto) Eos % (Auto) Baso % (Auto) Lymph # (Auto) [place] # (Auto) Eos # (Auto) Baso # (Auto) Abs Immat Gran (auto) Absolute Neuts (auto) Absolute Nucleated RBC Nucleated RBC % (auto) PT INR D-Dimer VBG pH VBG pCO2 VBG pO2 VBG HCO3 VBG O2 Saturation VBG Base Excess Sodium Potassium Chloride Carbon Dioxide Anion Gap BUN Creatinine Estim Creat Clear Calc Estimated GFR POC Glucose 145 H 142 H Random Glucose Lactic Acid 2.2 H* Calcium Total Bilirubin Direct Bilirubin AST ALT Alkaline Phosphatase Troponin I High Sens B-Natriuretic Peptide Total Protein Albumin Ur Random Sodium Urine Creatinine 07/03/20 11:24 WBC RBC Hgb Hct MCV MCH MCHC RDW Plt Count MPV Immature Gran % (Auto) Neut % (Auto) Lymph % (Auto) [place] % (Auto) Eos % (Auto) Baso % (Auto) Lymph # (Auto) [place] # (Auto) Eos # (Auto) Baso # (Auto) Abs Immat Gran (auto) Absolute Neuts (auto) Absolute Nucleated RBC Nucleated RBC % (auto) PT INR D-Dimer VBG pH 7.13 L* VBG pCO2 41 VBG pO2 50 VBG HCO3 14 VBG O2 Saturation 72.0 VBG Base Excess -14.2 Sodium Potassium Chloride Carbon Dioxide Anion Gap BUN Creatinine Estim Creat Clear Calc Estimated GFR POC Glucose Random Glucose Lactic Acid Calcium Total Bilirubin Direct Bilirubin AST ALT Alkaline Phosphatase Troponin I High Sens B-Natriuretic Peptide Total Protein Albumin Ur Random Sodium Urine Creatinine Microbiology Microbiology Results: Microbiology 06/29/20 14:58 Blood - Venous Blood Culture - Preliminary No growth after 48 hours. 06/29/20 14:58 Blood - Venous Blood Culture - Preliminary No growth after 48 hours. Progress Note: A&P Time Spent With Patient Time: Total time spent is greater than 50% in coordination of care (as documented) at patient's floor/unit and/or counseling patient: Total time spent with greater than 50% in coordination of care (as documented) at patient's floor/unit and/or counseling patient:: 0 Critical Care Time Critical Care Time (minutes): 180
--- NOTE | 2020-07-03 13:17 | W.PM.CCHP ---
Procedures Central Line Placement Left SC: Central Line Comments: PROCEDURE: Insertion left subclavian central venous line. INDICATION: Refractory hypotension. For IV access; blood draws; resp monitoring. ANESTHESIA: Local plus IV sedation. PROCEDURE: Vascular ultrasound was used to examine the left side (the left side was chosen to preserve the right side for a hemodialysis catheter). A large compressible internal jugular vein was noted in the left neck, above and lateral to the carotid artery. Vascular ultrasound was then used to examine the subclavian area. A smaller compressible vein was noted. The left subclavian and left neck areas were widely prepped and draped in full sterile fashion. Local anesthesia was applied to the subclavian area. The left subclavian vein was cannulated on the 2nd pass of the 18 gauge thin wall. Blood return was dark, but pulsatile. The needle was withdrawn and pressure held. The needle was then reintroduced more laterally. Good blood return was obtained, but the wire was unable to be threaded, on mult attempts. The needle was then withdrawn and the vessel was cannulated more medially. Again, dark pulsatile blood was returned. This time, a segment of IV extension tubing was attached, and the column of blood savi about 12-15 cm. The wire was then threaded without incident. A 7 Vietnamese by 16 cm triple-lumen catheter was advanced into the vein up to the hub via the Seldinger technique without incident. There was good blood return x3. The catheter was sutured x3 and a Biopatch and dry sterile dressing were applied. Postop chest x-ray showed the line in good position with no pneumothorax. The patient tolerated the procedure well w no complications. Consent for Procedure: Elective - informed consent obtained
[2020-07-03 13:28] LABS: Reflex Lactate? Lactic Acid Added
[2020-07-03 14:00] LABS: Anion Gap 22 (12-20); Blood Urea Nitrogen 75 mg/dL (9-16); Calcium 7.2 mg/dL (8.4-10.2); Carbon Dioxide 14 mmol/L (22-29); Chloride 102 mmol/L (96-108); Creatinine Clr Calc Pharmacy 14.5; Estimated Glomerular Filt Rate 11; Glucose Random 147 mg/dL (60-115); Potassium 5.5 mmol/L (3.3-5.1); Sodium 132 mmol/L (135-145)
[2020-07-03 14:03] LABS: B Type Natriuretic Peptide 803 pg/mL (<100)
[2020-07-03] MEDS: Sodium Bicarbonate 8.4% 50 MEQ/50 ML VIAL IVPUSH ×4 (14:13→18:06)
[2020-07-03] MEDS: LORazepam 2 MG/ML VIAL 0.5 MG IVPUSH (14:20)
[2020-07-03] MEDS: fentaNYL citrate/PF 100 MCG/2 ML VIAL 25 MCG IVPUSH (14:21)
[2020-07-03 14:52] LABS: Phosphorus 8.7 mg/dL (2.7-4.5)
[2020-07-03 15:12] LABS: Cancel Lactic Acid Canceled
--- NOTE | 2020-07-03 15:14 | PC.NURSE ---
Addendum entered by Guy Melgar RN 07/03/20 15:48: levophed at 0820 given through 20 L AC peripheral IV per MD order, frequently q1h monitored integrity and switched over to TLC after okayed by MD after CXR. Original Note: Pt arrived to unit 0810 via bed A&Ox3, dizzy, BP 76/30, albumin finished infusing started on IMC, 2nd albumin infused here, MD jean notified, started on 0.1mcg/kg/min levophed at 0820 per MD, BP 113/63. Afib 90-113bpm, 1+edema sacral, nonpitting BLE, MOD JVD noted. On 2L/min NC, titrated up to 4L/min, lungs dim, FC bases, left base more dim than right. Pt nauseas, diploplia since 0750 MD aware. Zofran given with some effect, no vommiting. Central line TLC placed left subclavian by Javy TATE at 1200, levo titrated up to 0.2mcg/kg/min as BP 80/20. 25mcg fent. and 0.5mg ativan given just prior to TLC placement per MD order. Placement TLC confirmed by CXR. Pt slightly confused since then. Critical pH reported MD notified, x3 AMP sodium bicarb given. Pt brought to CT for chest and ABD with RN, on monitor, pt tolerated well. IR here for bedside paracentesis.
[2020-07-03] MEDS: Lidocaine HCl 1 % MPF 5 ML VIAL SUBCUT (15:50)
[2020-07-03 15:53] LABS: MN% 81.8 %; PMN% 18.2 %; RBC Peritoneal Fluid 0.002 X10*6/uL; WBC Peritoneal Fluid 0.011 X10*3/uL
[2020-07-03 16:29] LABS: BF Shift QC OK YES
[2020-07-03 16:30] LABS: Lymphocyte Peritoneal Fl 75 %; Man Diluent Bkgrd OK YES; Monocytes Peritoneal Fl 25 %
[2020-07-03 16:57] LABS: Glucose, Whole Blood 152 mg/dL (60-115)
[2020-07-03] MEDS: 0.9 % Sodium Chloride Flush 3 ML SYRINGE IVFLUSH ×2 (18:05→23:51)
[2020-07-03] MEDS: Doxycycline Hyclate 100 MG in 0.9 % Sodium Chloride 250 ML 166.67 MG IV (18:06)
[2020-07-03] MEDS: Calcium Gluconate/NaCl,Iso-Osm 2 GM/100 ML PLAST..BAG IV (18:07)
[2020-07-03] MEDS: Hydrocortisone Sod Succ/PF 100 MG VIAL IVPUSH (18:38)
[2020-07-03] MEDS: Pantoprazole Sodium 40 MG/10 ML VIAL IVPUSH (18:38)
--- NOTE | 2020-07-03 21:12 | P.PCNCC_ITS ---
Procedures Central Line Placement A quick time-out was made for clarification and proper patient identification, patient was positioned, landmarks were identified, US used to locate a large compressible IJ. The right neck was widely prepped and draped in a full sterile fashion. Ultrasound was used to locate again the right IJ, the vein was cannul ated on the 1st pass with an 18 gauge thin needle, dark nonpulsatile blood return was obtained. The wire was threaded, a small incision was made at its base and dilator inserted. A triple-lumen POWER HD catheter was advanced into the vein up to the hub without problems, wired was removed. Ports had good blood return and flushed x3. The catheter was secured with 3 sutures at 3 sites, a Biopatch and dry sterile dressing were applied.Post procedure chest x- ray showed the line to be in good position without pneumothorax. No bleeding or complications noted.: Consent for Procedure: Elective - informed consent obtained Time out performed: Yes Sterile Technique Used: Yes Patient placed on monitor/pulse ox: Yes MD prep: mask, gown and gloves Central line prep: Chlorhexidine scrub and sterile drapes applied Local anesthesia used: lidocaine 1% Ultrasound used for placement: Yes Central line lumen inserted: triple Post procedure: sutured in place, good blood return, all ports aspirated, flushed, capped and sterile dressing applied Post procedure x-ray: tip of catheter in good position and no pneumothorax seen Patient tolerated procedure: well and other (2 attempts ) Complications: none (about 30 cc bleeding as Inr is 1.8)
[2020-07-03 21:29] LABS: Glucose, Whole Blood 147 mg/dL (60-115)
[2020-07-03] MEDS: Midodrine HCl 5 MG TABLET PO (21:57)
[2020-07-03] MEDS: UrsodioL 300 MG CAPSULE 600 MG PO (21:58)
[2020-07-03 22:25] LABS: Base Excess VBG -11.7 mmol/L; HCO3 VBG 15 mmol/L; PCO2 VBG 38 mmHg; PO2 VBG 85 mmHg
[2020-07-03 22:58] LABS: Anion Gap 21 (12-20); Blood Urea Nitrogen 81 mg/dL (9-16); Calcium 7.5 mg/dL (8.4-10.2); Carbon Dioxide 16 mmol/L (22-29); Chloride 102 mmol/L (96-108); Creatinine Clr Calc Pharmacy 13.8; Estimated Glomerular Filt Rate 11; Glucose Random 163 mg/dL (60-115); Lactic Acid 2.3 mmol/L (0.5-2.0); Potassium 5.2 mmol/L (3.3-5.1); Sodium 134 mmol/L (135-145)
[2020-07-03] MEDS: Hydrocortisone Sod Succ/PF 100 MG VIAL 50 MG IVPUSH (23:58)
[2020-07-04] VITALS (33 sets, daily range): BP systolic 85–127; BP diastolic 15–80; PULSE 108–135; RESP 13–28; TEMP 35.9–36.6; O2SAT 84–99
[2020-07-04 00:21] LABS: Reflex Lactate? Lactic Acid Added
[2020-07-04 00:43] LABS: Glucose Urine UA 100 MG/DL (NEG); Leukocyte Esterase Urine TRACE (NEG); PH 6.5 (5.0-8.0); Specific Gravity - Urine >= 1.030 (1.005-1.025); Urine Blood 3+ (NEG); Urine Ketones 5 MG/DL (NEG); Urine Protein 3+ MG/DL (NEG-TRACE)
[2020-07-04 00:47] LABS: Appearance Urine TURBID
[2020-07-04 00:48] LABS: Color Urine BROWN; Nitrite Urine NEG (NEG)
[2020-07-04 00:50] LABS: Bacteria Urine 2+ /LPF; RBC Urine TNTC /HPF (0); Squamous Epithelial Cell Urine 1+ /LPF
[2020-07-04 01:43] LABS: ~Lactic Acid-LAB USE ONLY 2.5 mmol/L (0.5-2.0)
--- NOTE | 2020-07-04 02:53 | PC.NURSE ---
Addendum entered by Jonathan Abdullahi RN 07/04/20 05:26: levophed to 0.4 mcg..remains dbp 20's...sbp 80's..pa aware..per pa started vasopressin 0.04 units/min Original Note: CARE ASSUMED 23:15...AWAKE..CONVERSES BUT VAGUE RESPONSES TO MANY QUESTIONS...WEAKLY MEND[place]ZA...MARKED ANASARCA PRESENT AND (+) JVD...RESPIRATIONS EASY..REMAINS WITH INTERMITTANT NAUSEA BUT NO EMESIS...ZOFRAN GIVEN...NPO FOR PLANNED DIALYSIS? IN AM...LEVOPHED 0.3 MCG/KG/MIN VIA LEFT SUBCLAVIAN TLC..RIGHT IJ DIALYSIS LINE INTACT...LIAO WITH MINIMAL DARK BROWN URINE..ICU PA PRESENT AND AWARE...REMAIN ATRIAL FIB HR 108-118...SBP 90'S-100'S..MAP>60..PA AWARE..GOAL MAP>60
[2020-07-04] MEDS: Doxycycline Hyclate 100 MG in 0.9 % Sodium Chloride 250 ML 166.67 MG IV ×2 (04:41→18:02)
[2020-07-04 05:02] LABS: Cancel Lactic Acid Canceled
[2020-07-04 05:31] LABS: Base Excess VBG -11.7 mmol/L; HCO3 VBG 15 mmol/L; PCO2 VBG 40 mmHg; PO2 VBG 125 mmHg
[2020-07-04 05:33] LABS: Basophils Percent Auto 0.1 % (0-2); Eosinophils Percent Auto 0.1 % (0-4); Hematocrit 30.7 % (37-47); Hemoglobin 9.1 g/dl (12.0-16.0); Imm Gran Abs Auto 0.07 X10*3/uL (0.00-0.03); Imm Gran Pct Auto 0.5 % (0.0-0.4); Lymphocytes Percent Auto 7.6 % (20-40); MANUAL DIFF FLAG SCAN; Mean Corpuscular HGB Conc 29.6 g/dl (31.0-35.0); Mean Corpuscular Hemoglobin 25.7 pg (27.0-33.0); Mean Corpuscular Volume 86.7 fL (80-98); Monocytes Absolute Auto 1.7 X10*3/uL (0.1-1.2); Monocytes Percent Auto 12.2 % (2-11); NRBC Pct Auto 0.5 /100WBC (0.0-0.2); Neutrophils Absolute Auto 10.9 X10*3/uL (2.0-8.3); Neutrophils Percent Auto 79.5 % (45-73); Platelet Count 224 X10*3/uL (160-400); Red Blood Count 3.54 X10*6/uL (4.20-5.50); SCAN SMEAR FLAG 1; White Blood Count 13.6 X10*3/uL (4.8-10.8); pH VBG 7.19 (7.32-7.43)
[2020-07-04 05:52] LABS: Anion Gap 23 (12-20); Blood Urea Nitrogen 86 mg/dL (9-16); C Reactive Protein 0.69 mg/dL (< or = 0.50); Calcium 7.4 mg/dL (8.4-10.2); Carbon Dioxide 14 mmol/L (22-29); Chloride 103 mmol/L (96-108); Creatinine Clr Calc Pharmacy 12.9; Estimated Glomerular Filt Rate 10; Glucose Random 169 mg/dL (60-115); Phosphorus 9.1 mg/dL (2.7-4.5); Potassium 5.4 mmol/L (3.3-5.1); Sodium 135 mmol/L (135-145)
[2020-07-04] MEDS: Hydrocortisone Sod Succ/PF 100 MG VIAL 50 MG IVPUSH ×2 (06:02→12:38)
[2020-07-04] MEDS: Pantoprazole Sodium 40 MG/10 ML VIAL IVPUSH (06:03)
[2020-07-04 06:07] LABS: Legionella Ag Urine Not Detected (Not Detected)
--- NOTE | 2020-07-04 06:08 | PC.NURSE ---
VASOPRESSIN 0.04 UNITS/MIN & LEVOPHED 0.4 MCG/KG/MIN...BP IMPROVED...CURRENTLY 101/61...PREPARATION SUPERVISOR FREEZING PRESENT TO INITIATE DIALYSIS
[2020-07-04 08:01] LABS: Total Protein Peritoneal Fluid 3.4
[2020-07-04 08:02] LABS: Glucose Peritoneal Fluid 171; LDH Peritoneal Fluid 92
[2020-07-04 08:10] LABS: Glucose, Whole Blood 149 mg/dL (60-115)
[2020-07-04] MEDS: 0.9 % Sodium Chloride Flush 3 ML SYRINGE IVFLUSH ×3 (08:19→17:35)
[2020-07-04 09:14] LABS: SLIDE REVIEW VERIFIED
--- NOTE | 2020-07-04 09:19 | MHC.CM.PN ---
Pt remains in ICU - not able to participate in d/c planning d/t medical condition: Call placed to pt's spouse Ray who is also her HCP (on file from 2016)/ Ray reports prior to [facility] [place] was totally independent with all care needs and did not have services or use adaptive devices. He provided transportation for pt to appts etc. Pt has been to STR in the past and Ray states although she didn't care for it, she would consider it as an option should she require more aggressive treatment prior to d/c to home. At this time, Ray would like the d/c plan to include home with [facility]. Once pts physical needs can be better evaluated, STR may be a option to pursue.
--- NOTE | 2020-07-04 10:51 | PM.PNNEP ---
Subjective Subjective Date of Service: 07/04/20 Interval history: Events noted; Seen this AM. 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 Had HD this AM Physical Exam Vital Signs: Vital Signs: Last Vital Signs Temp 97.4 F 07/04/20 07:00 Pulse 125 H 07/04/20 10:00 Resp 21 H 07/04/20 10:00 BP 104/59 L 07/04/20 10:00 Pulse Ox 96 07/04/20 10:00 Body Mass Index 32.4 Const: General: ill appearing Neck: Neck: Yes supple Resp: Auscultation: diminished lung sounds Cardio: Rate: regular rate GI: Palpation (GI): Soft to palpation Neuro: Other: Myoclonic Jerk + Objective Data Labs CBC & Chem 7: 07/04/20 05:08 07/04/20 05:08 Labs: Laboratory Results - last 24 hr 07/01/20 07/03/20 07/03/20 Unknown 05:57 07:45 WBC RBC Hgb Hct MCV MCH MCHC RDW Plt Count MPV Immature Gran % (Auto) Neut % (Auto) Lymph % (Auto) [place] % (Auto) Eos % (Auto) Baso % (Auto) Lymph # (Auto) [place] # (Auto) Eos # (Auto) Baso # (Auto) Abs Immat Gran (auto) Absolute Neuts (auto) Absolute Nucleated RBC Nucleated RBC % (auto) Smear Tech's Comments D-Dimer 2366 VBG pH VBG pCO2 VBG pO2 VBG HCO3 VBG O2 Saturation VBG Base Excess Sodium Potassium Chloride Carbon Dioxide Anion Gap BUN Creatinine Estim Creat Clear Calc Estimated GFR POC Glucose Random Glucose Lactic Acid Lactic Acid Fup @ 2Hr Calcium Phosphorus Troponin I High Sens 7.0 C-Reactive Protein B-Natriuretic Peptide Cancelled Urine Color Urine Appearance Urine pH Ur Specific [place] Urine Protein Urine Glucose (UA) Urine Ketones Urine Blood Urine Nitrite Ur Leukocyte Esterase Urine RBC Urine WBC Ur Squamous Epith Cells Urine Bacteria Peritoneal WBC Peritoneal RBC Periton Neutrophils [place] Lymphocytes Peritoneal Monocytes Peritoneal Eosinophils Peritoneal Basophils Peritoneal Other Cells Peritoneal Tot Protein Peritoneal LDH Peritoneal Glucose Ur L.pneumophila Ag Not Detected 07/03/20 07/03/20 07/03/20 11:00 11:24 11:24 WBC RBC Hgb Hct MCV MCH MCHC RDW Plt Count MPV Immature Gran % (Auto) Neut % (Auto) Lymph % (Auto) [place] % (Auto) Eos % (Auto) Baso % (Auto) Lymph # (Auto) [place] # (Auto) Eos # (Auto) Baso # (Auto) Abs Immat Gran (auto) Absolute Neuts (auto) Absolute Nucleated RBC Nucleated RBC % (auto) Smear Tech's Comments D-Dimer VBG pH 7.13 L* VBG pCO2 41 VBG pO2 50 VBG HCO3 14 VBG O2 Saturation 72.0 VBG Base Excess -14.2 Sodium Potassium Chloride Carbon Dioxide Anion Gap BUN Creatinine Estim Creat Clear Calc Estimated GFR POC Glucose 142 H Random Glucose Lactic Acid 2.2 H* Lactic Acid Fup @ 2Hr Calcium Phosphorus Troponin I High Sens C-Reactive Protein B-Natriuretic Peptide Urine Color Urine Appearance Urine pH Ur Specific [place] Urine Protein Urine Glucose (UA) Urine Ketones Urine Blood Urine Nitrite Ur Leukocyte Esterase Urine RBC Urine WBC Ur Squamous Epith Cells Urine Bacteria Peritoneal WBC Peritoneal RBC Periton Neutrophils [place] Lymphocytes Peritoneal Monocytes Peritoneal Eosinophils Peritoneal Basophils Peritoneal Other Cells Peritoneal Tot Protein Peritoneal LDH Peritoneal Glucose Ur L.pneumophila Ag 07/03/20 07/03/20 07/03/20 13:10 13:10 14:17 WBC RBC Hgb Hct MCV MCH MCHC RDW Plt Count MPV Immature Gran % (Auto) Neut % (Auto) Lymph % (Auto) [place] % (Auto) Eos % (Auto) Baso % (Auto) Lymph # (Auto) [place] # (Auto) Eos # (Auto) Baso # (Auto) Abs Immat Gran (auto) Absolute Neuts (auto) Absolute Nucleated RBC Nucleated RBC % (auto) Smear Tech's Comments D-Dimer VBG pH VBG pCO2 VBG pO2 VBG HCO3 VBG O2 Saturation VBG Base Excess Sodium 132 L Potassium 5.5 H Chloride 102 Carbon Dioxide 14 L Anion Gap 22 H BUN 75 H Creatinine 3.97 H Estim Creat Clear Calc 14.5 Estimated GFR 11 POC Glucose Random Glucose 147 H Lactic Acid Lactic Acid Fup @ 2Hr Cancelled Calcium 7.2 L Phosphorus 8.7 H Troponin I High Sens C-Reactive Protein B-Natriuretic Peptide 803 H Urine Color Urine Appearance Urine pH Ur Specific [place] Urine Protein Urine Glucose (UA) Urine Ketones Urine Blood Urine Nitrite Ur Leukocyte Esterase Urine RBC Urine WBC Ur Squamous Epith Cells Urine Bacteria Peritoneal WBC Peritoneal RBC Periton Neutrophils [place] Lymphocytes Peritoneal Monocytes Peritoneal Eosinophils Peritoneal Basophils Peritoneal Other Cells Peritoneal Tot Protein Peritoneal LDH Peritoneal Glucose Ur L.pneumophila Ag 07/03/20 07/03/20 07/03/20 15:35 15:35 16:53 WBC RBC Hgb Hct MCV MCH MCHC RDW Plt Count MPV Immature Gran % (Auto) Neut % (Auto) Lymph % (Auto) [place] % (Auto) Eos % (Auto) Baso % (Auto) Lymph # (Auto) [place] # (Auto) Eos # (Auto) Baso # (Auto) Abs Immat Gran (auto) Absolute Neuts (auto) Absolute Nucleated RBC Nucleated RBC % (auto) Smear Tech's Comments D-Dimer VBG pH VBG pCO2 VBG pO2 VBG HCO3 VBG O2 Saturation VBG Base Excess Sodium Potassium Chloride Carbon Dioxide Anion Gap BUN Creatinine Estim Creat Clear Calc Estimated GFR POC Glucose 152 H Random Glucose Lactic Acid Lactic Acid Fup @ 2Hr Calcium Phosphorus Troponin I High Sens C-Reactive Protein B-Natriuretic Peptide Urine Color Urine Appearance Urine pH Ur Specific [place] Urine Protein Urine Glucose (UA) Urine Ketones Urine Blood Urine Nitrite Ur Leukocyte Esterase Urine RBC Urine WBC Ur Squamous Epith Cells Urine Bacteria Peritoneal WBC 0.011 Peritoneal RBC 0.002 Periton Neutrophils SUPERVISOR FURNACE ROOM Periton Lymphocytes 75 Peritoneal Monocytes 25 Peritoneal Eosinophils SUPERVISOR [employer] Peritoneal Basophils SUPERVISOR [employer] Peritoneal Other Cells SUPERVISOR [employer] Peritoneal Tot Protein 3.4 Peritoneal LDH 92 Peritoneal Glucose 171 Ur L.pneumophila Ag 07/03/20 07/03/20 07/03/20 21:26 22:18 22:18 WBC RBC Hgb Hct MCV MCH MCHC RDW Plt Count MPV Immature Gran % (Auto) Neut % (Auto) Lymph % (Auto) [place] % (Auto) Eos % (Auto) Baso % (Auto) Lymph # (Auto) [place] # (Auto) Eos # (Auto) Baso # (Auto) Abs Immat Gran (auto) Absolute Neuts (auto) Absolute Nucleated RBC Nucleated RBC % (auto) Smear Tech's Comments D-Dimer VBG pH VBG pCO2 VBG pO2 VBG HCO3 VBG O2 Saturation VBG Base Excess Sodium 134 L Potassium 5.2 H Chloride 102 Carbon Dioxide 16 L Anion Gap 21 H BUN 81 H* Creatinine 4.19 H* Estim Creat Clear Calc 13.8 Estimated GFR 11 POC Glucose 147 H Random Glucose 163 H Lactic Acid 2.3 H* Lactic Acid Fup @ 2Hr Calcium 7.5 L Phosphorus Troponin I High Sens C-Reactive Protein B-Natriuretic Peptide Urine Color Urine Appearance Urine pH Ur Specific [place] Urine Protein Urine Glucose (UA) Urine Ketones Urine Blood Urine Nitrite Ur Leukocyte Esterase Urine RBC Urine WBC Ur Squamous Epith Cells Urine Bacteria Peritoneal WBC Peritoneal RBC Periton Neutrophils Periton Lymphocytes Peritoneal Monocytes Peritoneal Eosinophils Peritoneal Basophils Peritoneal Other Cells Peritoneal Tot Protein Peritoneal LDH Peritoneal Glucose Ur L.pneumophila Ag 07/03/20 07/04/20 07/04/20 22:18 00:18 01:12 WBC RBC Hgb Hct MCV MCH MCHC RDW Plt Count MPV Immature Gran % (Auto) Neut % (Auto) Lymph % (Auto) [place] % (Auto) Eos % (Auto) Baso % (Auto) Lymph # (Auto) [place] # (Auto) Eos # (Auto) Baso # (Auto) Abs Immat Gran (auto) Absolute Neuts (auto) Absolute Nucleated RBC Nucleated RBC % (auto) Smear Tech's Comments D-Dimer VBG pH 7.20 L* VBG pCO2 38 VBG pO2 85 VBG HCO3 15 VBG O2 Saturation 94.0 VBG Base Excess -11.7 Sodium Potassium Chloride Carbon Dioxide Anion Gap BUN Creatinine Estim Creat Clear Calc Estimated GFR POC Glucose Random Glucose Lactic Acid Lactic Acid Fup @ 2Hr 2.5 H* Calcium Phosphorus Troponin I High Sens C-Reactive Protein B-Natriuretic Peptide Urine Color BROWN Urine Appearance TURBID Urine pH 6.5 Ur Specific [place] >= 1.030 H Urine Protein 3+ H Urine Glucose (UA) 100 H Urine Ketones 5 Urine Blood 3+ H Urine Nitrite NEG Ur Leukocyte Esterase TRACE H Urine RBC TNTC H Urine WBC 10-14 H Ur Squamous Epith Cells 1+ Urine Bacteria 2+ Peritoneal WBC Peritoneal RBC Periton Neutrophils Periton Lymphocytes Peritoneal Monocytes Peritoneal Eosinophils Peritoneal Basophils Peritoneal Other Cells Peritoneal Tot Protein Peritoneal LDH Peritoneal Glucose Ur L.pneumophila Ag 07/04/20 07/04/20 07/04/20 05:08 05:08 05:08 WBC 13.6 H RBC 3.54 L Hgb 9.1 L Hct 30.7 L MCV 86.7 MCH 25.7 L MCHC 29.6 L RDW 17.0 H Plt Count 224 MPV 10.0 Immature Gran % (Auto) 0.5 H Neut % (Auto) 79.5 H Lymph % (Auto) 7.6 L [place] % (Auto) 12.2 H Eos % (Auto) 0.1 Baso % (Auto) 0.1 Lymph # (Auto) 1.0 L [place] # (Auto) 1.7 H Eos # (Auto) 0.0 Baso # (Auto) 0.0 Abs Immat Gran (auto) 0.07 H Absolute Neuts (auto) 10.9 H Absolute Nucleated RBC 0.070 H Nucleated RBC % (auto) 0.5 H Smear Tech's Comments VERIFIED D-Dimer VBG pH 7.19 L* VBG pCO2 40 VBG pO2 125 VBG HCO3 15 VBG O2 Saturation 99.0 VBG Base Excess -11.7 Sodium 135 Potassium 5.4 H Chloride 103 Carbon Dioxide 14 L Anion Gap 23 H BUN 86 H* Creatinine 4.46 H* Estim Creat Clear Calc 12.9 Estimated GFR 10 POC Glucose Random Glucose 169 H Lactic Acid Lactic Acid Fup @ 2Hr Calcium 7.4 L Phosphorus 9.1 H Troponin I High Sens C-Reactive Protein 0.69 H B-Natriuretic Peptide Urine Color Urine Appearance Urine pH Ur Specific [place] Urine Protein Urine Glucose (UA) Urine Ketones Urine Blood Urine Nitrite Ur Leukocyte Esterase Urine RBC Urine WBC Ur Squamous Epith Cells Urine Bacteria Peritoneal WBC Peritoneal RBC Periton Neutrophils [place] Lymphocytes Peritoneal Monocytes Peritoneal Eosinophils Peritoneal Basophils Peritoneal Other Cells Peritoneal Tot Protein Peritoneal LDH Peritoneal Glucose Ur L.pneumophila Ag 07/04/20 08:06 WBC RBC Hgb Hct MCV MCH MCHC RDW Plt Count MPV Immature Gran % (Auto) Neut % (Auto) Lymph % (Auto) [place] % (Auto) Eos % (Auto) Baso % (Auto) Lymph # (Auto) [place] # (Auto) Eos # (Auto) Baso # (Auto) Abs Immat Gran (auto) Absolute Neuts (auto) Absolute Nucleated RBC Nucleated RBC % (auto) Smear Tech's Comments D-Dimer VBG pH VBG pCO2 VBG pO2 VBG HCO3 VBG O2 Saturation VBG Base Excess Sodium Potassium Chloride Carbon Dioxide Anion Gap BUN Creatinine Estim Creat Clear Calc Estimated GFR POC Glucose 149 H Random Glucose Lactic Acid Lactic Acid Fup @ 2Hr Calcium Phosphorus Troponin I High Sens C-Reactive Protein B-Natriuretic Peptide Urine Color Urine Appearance Urine pH Ur Specific [place] Urine Protein Urine Glucose (UA) Urine Ketones Urine Blood Urine Nitrite Ur Leukocyte Esterase Urine RBC Urine WBC Ur Squamous Epith Cells Urine Bacteria Peritoneal WBC Peritoneal RBC Periton Neutrophils Periton Lymphocytes Peritoneal Monocytes Peritoneal Eosinophils Peritoneal Basophils Peritoneal Other Cells Peritoneal Tot Protein Peritoneal LDH Peritoneal Glucose Ur L.pneumophila Ag Microbiology Microbiology Results: Microbiology 07/03/20 15:35 Paracentesis Fluid Gram Stain - Final 07/03/20 15:35 Paracentesis Fluid Body Fluid Culture - Preliminary No growth to date. 06/29/20 14:58 Blood - Venous Blood Culture - Preliminary No growth after 48 hours. 06/29/20 14:58 Blood - Venous Blood Culture - Preliminary No growth after 48 hours. Assessment & Plan Assessment and plan (1) Acute kidney injury: Problem details: Acute Kidney Injury due to reduced renal perfusion with resultant tubular injury. Unlikely HRS. DDx- post infectious GN, pulmonary renal syndrome, IgA nephropathy ( ? crescentic)- All these unlikely; Investigations in progress. Dialysed this AM. HD ordered for tomorrow AM9 HD RN aware). Likely will need renal replacement therapy for some time. Concur with rest of current management. Shall follow along Status: Acute Time Spent With Patient Time: Total time spent is greater than 50% in coordination of care (as documented) at patient's floor/unit and/or counseling patient:
--- NOTE | 2020-07-04 11:16 | PM.CCPN ---
Subjective Subjective Date of Service: 07/04/20 Interval History: Mrs. Hoffmann was admitted to ICU Jul 03 bec of hypotension and acute renal failure. The patient is a 65 yr-old woman with PMHx of bronchitis; primary biliary cirrhosis, on the transplant list [facility]; biventricular cardiomyopathy (see below; etiology unknown), followed by cardiology at [facility]; atrial fibrillation, status post Watchman procedure at [facility], no longer on anticoagulation but still on full dose aspirin; hypertension; diabetes; hypothyroidism; pancytopenia; iron deficiency anemia; and chronic pain. Surgical history is notable for cholecystectomy. Echo on 01/16/19 (reportedly done bec of ?fluid overload?) showed moderately decreased LV systolic function moderate global hypokinesis, with no regional wall motion abnormalities. EF 30-35%. The right ventricle was reportedly normal in size and systolic function. There was severe biatrial enlargement. Aortic valve was normal. There was mild MR. There was moderate TR with a 2.5 m/sec gradient (26mm). The IVC was dilated less than 50% inspiratory collapse. CVP estimate was 15mm. RVSP estimate was 41 mm. According to [facility] records, echo in Mar, 2019 showed normal EF. On June 29, she presented to Urgent Care with a dry cough x 3 weeks, with low-grade temp and dark stools. No GI sx or recent travel or sick contacts. At Urgent Care, COVID test was negative, but her HR was in 140s, and she was sent to the ER. In the ED, HR was 130, afib. BP 108/70. Sat was 94-98% on room air. Stool was black, heme positive. Her hemoglobin was noted to be 7.9 (baseline 10-13), platelet count 73 (baseline 80-130). WBC was 3.6 (baseline 3-4). BUN/creat were 21/0.9 (baseline about 0.8, but she did have one value of 1.4 in 2019, ? reason). CXR was read as showing diffuse bilateral patchy ground-glass opacities (on my reading today, I?m unimpressed that there?s any acute dz on the film). She was given metoprolol, PPI, and Levaquin, and transfused 1 unit RBCs. Hb savi to 9.2, and has been stable since then. No clinical bleeding. Blood pressures were running mostly in the SBP 90-110 range. On July 01, renal indices bumped to 41/1.5. She underwent EGD that day, which showed Grade 1 nonbleeding esophageal varices, gastric antral vascular ectasia without bleeding, and mild portal hypertensive gastropathy. Later that day, SBP dropped into the 80?s, and was 70s-90?s all day. She was given more fluids. The next day, Jul 02, BUN/creat were up to 56/2.6. Renal US showed small left kidney, normal-appearing right kidney, w no hydronephrosis. SBP was 80-90s. Yest morning, Jul 03, BUN/creat were up to 74/3.7, potassium up to 5.5, bicarb up to 13, and she was aneuric. BP was down into the 70?s. I was called and we transferred her down to ICU, where she was immed started pressors. On exam, she was alert and oriented, but very anxious. Breathing was normal. Peripheral digits were cold and it was difficult to get a Sat. When we got one, Sat was mid-high 90?s on 2L, up to 100% on 4L. Temp was 97.4 degrees. Heart rate 100-110, atrial fibrillation. Blood pressure initially 78/36; up to 117/66 on Levophed 0.1 mcg. There was 2 cm jugular venous distension with the head of the bed at about 40 degrees. Chest was clear. Abdomen obese but benign, with no organomegally or gross ascites. At least 2+ anasarca. No infected skin lesions, peripheral IV sites were OK. Labs yesterday were notable for white count 9.0 without a left shift, hemoglobin was 9.7, platelet count 203. PT 21/1.8. D-dimer 2366. Potassium 5.5, bicarb 13, BUN and creatinine 74/3.7, glucose 143, total bili 1.7 (down from 2.3), albumin 3.2, Troponin 7.0. Lactate was 1.6. BNP was 803 EKG showed atrial fibrillation with loss of R-waves across the precordium; could not rule out inferior wall MS. No acute ST changes. ECHOCARDIOGRAM for hemodynamic monitoring done by me: Image quality: Good. Findings: In addition, at the bedside I viewed the full echo done by the [facility]. My readin. LV wall thickness is normal. 2. LV cavity size is top normal, or mildly dilated, with marked diffuse LV dysfxn. No clear RWMAs. EF about 30%. 3. RV cavity is mildly enlarged, with prob normal fxn. 4. Severe biatrial enlargement. 5. AoV normal. 6. MV shows trace-1+ MR. 7. TV shows 2+ TR, with 2.3 m/sec jet (21 mm gradient) 8. IVC is dilated and noncontractile. RVSP estimate 36mm. Note: When I put her left subclavian CVL in, the blood return thru the needle was pulsatile, like it was arterial, altho it was dark and only savi to a column of about 12-15 cm thru a length of IV tubing. IMAGING: CXR shows mild chronic lung dz. There are bilat pleural eff, L>R, with a left basilar opacity of unclear significance. Lung Perfusion scan negative. LE duplex scan negative. Chest CT (noncontrast) shows bilat pleural eff, no pneumonia. Abdomen/pelvic noncontrast CT unremarkable. Discussed with Dr. Snyder from [place]. We changed her Levaquin to Doxycycline alone. We called [facility] yesterday and requested transfer to their liver transplant team. They have accepted the transfer, but as yet have no beds. They thought they would have a bed in 48 hours. Repeat labs yesterday mostly no significant changes, altho lactic acid savi to 2.3. Overnight last night her pressor requirement increased. She continued to be anuric. A dialysis catheter was put in and she was dialyzed this morning. Her BP tolerated the HD well, but her HR savi into the 120?s-130. Post dialysis this morning, she?s noticeably washed out. Lethargic, but arousable, and still oriented. 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 See Vital Signs below. Heart rate 122, blood pressure 92/60 on Levophed 0.26, and vasopressin 0.04. Breathing easy. Sat mid to high 90s on 4 L oxygen by nasal cannula. Central venous blood gas post dialysis shows 7.23/37/-10. She is afebrile. 1 cm JVD at 40 degrees. Auscultation of the chest shows a few basilar crackles. No murmur or gallops. Abdomen is benign. She has 2+ anasarca. LABORATORY DATA: As below. Notably, white count is up to 13.6 this morning. Post dialysis, BUN and creatinine are 70/3.7, bicarb is 18, potassium is 4.3, total bili is 2.1, and lactic acid is 2.6. Albumin is 3.4, procalcitonin is 0.25. IMPRESSION: 1. Underlying PBC. 2. Atrial fibrillation, post Watchman procedure. Rate is now uncontrolled. Low dose esmolol dropped her BP. Little if any response to digoxin 0.25mg. With recent GI bleed, she?s not currently a candidate for anticoagulation. 3. Baseline biventricular CMOP of unknown etiology, but it?s not new. It?s worse though (both right and left heart) since the prev echo in December,. By trop, EKG, and echo, there?s no evidence of ischemia. 4. Refractory hypotension. Undetermined etiology, other than perhaps liver disease. Little evidence for sepsis, and all cultures negative so far, even from a paracentesis of small volume ascites. Examined her at the bedside again with Dr. Martin. He had no further ideas. The high HR isn?t helping, but we don?t want to use amiodaronoe. Hydrocortisone for almost 24hrs was no help, I?ll d/c it. I spoke again with the ICU attending at [facility] and he had no ideas either, other than liver disease. There?s no clear evidence though that her liver is acutely failing. I?ll send an ammonia level now. 5. R/o sepsis. Still no gross evidence of a locus of infection. Continuing the doxycycline. 6. HAYLEY. 2? ATN, 2? hypotension. Not prerenal. Didn?t get the best dialysis today, but she?s washed out. We?ll dialyze her again tomorrow morning first thing. 7. GI bleed. Appears to have resolved. Continue PPI. Critical care time: 80+ min. Physical Exam Vital Signs: Vital Signs: Last Vital Signs Temp 96.7 F L 07/04/20 11:00 Pulse 125 H 07/04/20 11:00 Resp 17 07/04/20 11:00 BP 92/60 07/04/20 11:00 Pulse Ox 96 07/04/20 11:00 Body Mass Index 32.4 Objective Data Labs CBC & Chem 7: 07/04/20 05:08 07/04/20 11:36 Labs: Laboratory Results - last 24 hr 07/01/20 07/03/20 07/03/20 Unknown 05:57 07:45 WBC RBC Hgb Hct MCV MCH MCHC RDW Plt Count MPV Immature Gran % (Auto) Neut % (Auto) Lymph % (Auto) Garvin % (Auto) Eos % (Auto) Baso % (Auto) Lymph # (Auto) Garvin # (Auto) Eos # (Auto) Baso # (Auto) Abs Immat Gran (auto) Absolute Neuts (auto) Absolute Nucleated RBC Nucleated RBC % (auto) Smear Tech's Comments D-Dimer 2366 VBG pH VBG pCO2 VBG pO2 VBG HCO3 VBG O2 Saturation VBG Base Excess Sodium Potassium Chloride Carbon Dioxide Anion Gap BUN Creatinine Estim Creat Clear Calc Estimated GFR POC Glucose Random Glucose Lactic Acid Lactic Acid Fup @ 2Hr Calcium Phosphorus Troponin I High Sens 7.0 C-Reactive Protein B-Natriuretic Peptide Cancelled Urine Color Urine Appearance Urine pH Ur Specific [place] Urine Protein Urine Glucose (UA) Urine Ketones Urine Blood Urine Nitrite Ur Leukocyte Esterase Urine RBC Urine WBC Ur Squamous Epith Cells Urine Bacteria Peritoneal WBC Peritoneal RBC Periton Neutrophils Periton Lymphocytes Peritoneal Monocytes Peritoneal Eosinophils Peritoneal Basophils Peritoneal Other Cells Peritoneal Tot Protein Peritoneal LDH Peritoneal Glucose Ur L.pneumophila Ag Not Detected 07/03/20 07/03/20 07/03/20 11:24 11:24 13:10 WBC RBC Hgb Hct MCV MCH MCHC RDW Plt Count MPV Immature Gran % (Auto) Neut % (Auto) Lymph % (Auto) Garvin % (Auto) Eos % (Auto) Baso % (Auto) Lymph # (Auto) Garvin # (Auto) Eos # (Auto) Baso # (Auto) Abs Immat Gran (auto) Absolute Neuts (auto) Absolute Nucleated RBC Nucleated RBC % (auto) Smear Tech's Comments D-Dimer VBG pH 7.13 L* VBG pCO2 41 VBG pO2 50 VBG HCO3 14 VBG O2 Saturation 72.0 VBG Base Excess -14.2 Sodium 132 L Potassium 5.5 H Chloride 102 Carbon Dioxide 14 L Anion Gap 22 H BUN 75 H Creatinine 3.97 H Estim Creat Clear Calc 14.5 Estimated GFR 11 POC Glucose Random Glucose 147 H Lactic Acid 2.2 H* Lactic Acid Fup @ 2Hr Calcium 7.2 L Phosphorus 8.7 H Troponin I High Sens C-Reactive Protein B-Natriuretic Peptide Urine Color Urine Appearance Urine pH Ur Specific [place] Urine Protein Urine Glucose (UA) Urine Ketones Urine Blood Urine Nitrite Ur Leukocyte Esterase Urine RBC Urine WBC Ur Squamous Epith Cells Urine Bacteria Peritoneal WBC Peritoneal RBC Periton Neutrophils Periton Lymphocytes Peritoneal Monocytes Peritoneal Eosinophils Peritoneal Basophils Peritoneal Other Cells Peritoneal Tot Protein Peritoneal LDH Peritoneal Glucose Ur L.pneumophila Ag 07/03/20 07/03/20 07/03/20 13:10 14:17 15:35 WBC RBC Hgb Hct MCV MCH MCHC RDW Plt Count MPV Immature Gran % (Auto) Neut % (Auto) Lymph % (Auto) Garvin % (Auto) Eos % (Auto) Baso % (Auto) Lymph # (Auto) Garvin # (Auto) Eos # (Auto) Baso # (Auto) Abs Immat Gran (auto) Absolute Neuts (auto) Absolute Nucleated RBC Nucleated RBC % (auto) Smear Tech's Comments D-Dimer VBG pH VBG pCO2 VBG pO2 VBG HCO3 VBG O2 Saturation VBG Base Excess Sodium Potassium Chloride Carbon Dioxide Anion Gap BUN Creatinine Estim Creat Clear Calc Estimated GFR POC Glucose Random Glucose Lactic Acid Lactic Acid Fup @ 2Hr Cancelled Calcium Phosphorus Troponin I High Sens C-Reactive Protein B-Natriuretic Peptide 803 H Urine Color Urine Appearance Urine pH Ur Specific [place] Urine Protein Urine Glucose (UA) Urine Ketones Urine Blood Urine Nitrite Ur Leukocyte Esterase Urine RBC Urine WBC Ur Squamous Epith Cells Urine Bacteria Peritoneal WBC 0.011 Peritoneal RBC 0.002 Periton Neutrophils SUPERVISOR DEHYDROGENATION Periton Lymphocytes 75 Peritoneal Monocytes 25 Peritoneal Eosinophils SUPERVISOR DEHYDROGENATION Peritoneal Basophils SUPERVISOR DEHYDROGENATION Peritoneal Other Cells SUPERVISOR DEHYDROGENATION Peritoneal Tot Protein Peritoneal LDH Peritoneal Glucose Ur L.pneumophila Ag 07/03/20 07/03/20 07/03/20 15:35 16:53 21:26 WBC RBC Hgb Hct MCV MCH MCHC RDW Plt Count MPV Immature Gran % (Auto) Neut % (Auto) Lymph % (Auto) Garvin % (Auto) Eos % (Auto) Baso % (Auto) Lymph # (Auto) Garvin # (Auto) Eos # (Auto) Baso # (Auto) Abs Immat Gran (auto) Absolute Neuts (auto) Absolute Nucleated RBC Nucleated RBC % (auto) Smear Tech's Comments D-Dimer VBG pH VBG pCO2 VBG pO2 VBG HCO3 VBG O2 Saturation VBG Base Excess Sodium Potassium Chloride Carbon Dioxide Anion Gap BUN Creatinine Estim Creat Clear Calc Estimated GFR POC Glucose 152 H 147 H Random Glucose Lactic Acid Lactic Acid Fup @ 2Hr Calcium Phosphorus Troponin I High Sens C-Reactive Protein B-Natriuretic Peptide Urine Color Urine Appearance Urine pH Ur Specific [place] Urine Protein Urine Glucose (UA) Urine Ketones Urine Blood Urine Nitrite Ur Leukocyte Esterase Urine RBC Urine WBC Ur Squamous Epith Cells Urine Bacteria Peritoneal WBC Peritoneal RBC Periton Neutrophils Periton Lymphocytes Peritoneal Monocytes Peritoneal Eosinophils Peritoneal Basophils Peritoneal Other Cells Peritoneal Tot Protein 3.4 Peritoneal LDH 92 Peritoneal Glucose 171 Ur L.pneumophila Ag 07/03/20 07/03/20 07/03/20 22:18 22:18 22:18 WBC RBC Hgb Hct MCV MCH MCHC RDW Plt Count MPV Immature Gran % (Auto) Neut % (Auto) Lymph % (Auto) Garvin % (Auto) Eos % (Auto) Baso % (Auto) Lymph # (Auto) Garvin # (Auto) Eos # (Auto) Baso # (Auto) Abs Immat Gran (auto) Absolute Neuts (auto) Absolute Nucleated RBC Nucleated RBC % (auto) Smear Tech's Comments D-Dimer VBG pH 7.20 L* VBG pCO2 38 VBG pO2 85 VBG HCO3 15 VBG O2 Saturation 94.0 VBG Base Excess -11.7 Sodium 134 L Potassium 5.2 H Chloride 102 Carbon Dioxide 16 L Anion Gap 21 H BUN 81 H* Creatinine 4.19 H* Estim Creat Clear Calc 13.8 Estimated GFR 11 POC Glucose Random Glucose 163 H Lactic Acid 2.3 H* Lactic Acid Fup @ 2Hr Calcium 7.5 L Phosphorus Troponin I High Sens C-Reactive Protein B-Natriuretic Peptide Urine Color Urine Appearance Urine pH Ur Specific [place] Urine Protein Urine Glucose (UA) Urine Ketones Urine Blood Urine Nitrite Ur Leukocyte Esterase Urine RBC Urine WBC Ur Squamous Epith Cells Urine Bacteria Peritoneal WBC Peritoneal RBC Periton Neutrophils Periton Lymphocytes Peritoneal Monocytes Peritoneal Eosinophils Peritoneal Basophils Peritoneal Other Cells Peritoneal Tot Protein Peritoneal LDH Peritoneal Glucose Ur L.pneumophila Ag 07/04/20 07/04/20 07/04/20 00:18 01:12 05:08 WBC 13.6 H RBC 3.54 L Hgb 9.1 L Hct 30.7 L MCV 86.7 MCH 25.7 L MCHC 29.6 L RDW 17.0 H Plt Count 224 MPV 10.0 Immature Gran % (Auto) 0.5 H Neut % (Auto) 79.5 H Lymph % (Auto) 7.6 L Garvin % (Auto) 12.2 H Eos % (Auto) 0.1 Baso % (Auto) 0.1 Lymph # (Auto) 1.0 L Garvin # (Auto) 1.7 H Eos # (Auto) 0.0 Baso # (Auto) 0.0 Abs Immat Gran (auto) 0.07 H Absolute Neuts (auto) 10.9 H Absolute Nucleated RBC 0.070 H Nucleated RBC % (auto) 0.5 H Smear Tech's Comments VERIFIED D-Dimer VBG pH VBG pCO2 VBG pO2 VBG HCO3 VBG O2 Saturation VBG Base Excess Sodium Potassium Chloride Carbon Dioxide Anion Gap BUN Creatinine Estim Creat Clear Calc Estimated GFR POC Glucose Random Glucose Lactic Acid Lactic Acid Fup @ 2Hr 2.5 H* Calcium Phosphorus Troponin I High Sens C-Reactive Protein B-Natriuretic Peptide Urine Color BROWN Urine Appearance TURBID Urine pH 6.5 Ur Specific [place] >= 1.030 H Urine Protein 3+ H Urine Glucose (UA) 100 H Urine Ketones 5 Urine Blood 3+ H Urine Nitrite NEG Ur Leukocyte Esterase TRACE H Urine RBC TNTC H Urine WBC 10-14 H Ur Squamous Epith Cells 1+ Urine Bacteria 2+ Peritoneal WBC Peritoneal RBC Periton Neutrophils Periton Lymphocytes Peritoneal Monocytes Peritoneal Eosinophils Peritoneal Basophils Peritoneal Other Cells Peritoneal Tot Protein Peritoneal LDH Peritoneal Glucose Ur L.pneumophila Ag 07/04/20 07/04/20 07/04/20 05:08 05:08 08:06 WBC RBC Hgb Hct MCV MCH MCHC RDW Plt Count MPV Immature Gran % (Auto) Neut % (Auto) Lymph % (Auto) Garvin % (Auto) Eos % (Auto) Baso % (Auto) Lymph # (Auto) Garvin # (Auto) Eos # (Auto) Baso # (Auto) Abs Immat Gran (auto) Absolute Neuts (auto) Absolute Nucleated RBC Nucleated RBC % (auto) Smear Tech's Comments D-Dimer VBG pH 7.19 L* VBG pCO2 40 VBG pO2 125 VBG HCO3 15 VBG O2 Saturation 99.0 VBG Base Excess -11.7 Sodium 135 Potassium 5.4 H Chloride 103 Carbon Dioxide 14 L Anion Gap 23 H BUN 86 H* Creatinine 4.46 H* Estim Creat Clear Calc 12.9 Estimated GFR 10 POC Glucose 149 H Random Glucose 169 H Lactic Acid Lactic Acid Fup @ 2Hr Calcium 7.4 L Phosphorus 9.1 H Troponin I High Sens C-Reactive Protein 0.69 H B-Natriuretic Peptide Urine Color Urine Appearance Urine pH Ur Specific [place] Urine Protein Urine Glucose (UA) Urine Ketones Urine Blood Urine Nitrite Ur Leukocyte Esterase Urine RBC Urine WBC Ur Squamous Epith Cells Urine Bacteria Peritoneal WBC Peritoneal RBC Periton Neutrophils Periton Lymphocytes Peritoneal Monocytes Peritoneal Eosinophils Peritoneal Basophils Peritoneal Other Cells Peritoneal Tot Protein Peritoneal LDH Peritoneal Glucose Ur L.pneumophila Ag Microbiology Microbiology Results: Microbiology 07/03/20 15:35 Paracentesis Fluid Gram Stain - Final 07/03/20 15:35 Paracentesis Fluid Body Fluid Culture - Preliminary No growth to date. 06/29/20 14:58 Blood - Venous Blood Culture - Preliminary No growth after 48 hours. 06/29/20 14:58 Blood - Venous Blood Culture - Preliminary No growth after 48 hours. Progress Note: A&P Time Spent With Patient Time: Total time spent is greater than 50% in coordination of care (as documented) at patient's floor/unit and/or counseling patient: Total time spent with greater than 50% in coordination of care (as documented) at patient's floor/unit and/or counseling patient:: 0 Critical Care Time Critical Care Time (minutes): 90
[2020-07-04 11:23] LABS: Glucose, Whole Blood 156 mg/dL (60-115)
[2020-07-04] MEDS: Esmolol HCl/NaCl Iso 2,500 MG/250 ML IV.SOLN 9.96 MG IVCONT (11:32)
[2020-07-04 11:50] LABS: Base Excess VBG -10.4 mmol/L; HCO3 VBG 16 mmol/L; PCO2 VBG 37 mmHg; PO2 VBG 100 mmHg; pH VBG 7.23 (7.32-7.43)
[2020-07-04 12:19] LABS: Lactic Acid 2.6 mmol/L (0.5-2.0)
[2020-07-04 12:22] LABS: Alanine Aminotransferase 25 U/L (0-31); Albumin Level 3.4 g/dL (3.5-5.0); Alkaline Phosphatase 66 U/L (39-117); Anion Gap 18 (12-20); Aspartate Amino Transferase 43 U/L (5-31); Bilirubin Total 2.1 mg/dL (0.0-1.0); Blood Urea Nitrogen 70 mg/dL (9-16); Calcium 7.6 mg/dL (8.4-10.2); Carbon Dioxide 18 mmol/L (22-29); Chloride 103 mmol/L (96-108); Creatinine Clr Calc Pharmacy 15.4; Estimated Glomerular Filt Rate 12; Glucose Random 166 mg/dL (60-115); Potassium 4.3 mmol/L (3.3-5.1); Sodium 135 mmol/L (135-145); Total Protein 6.9 g/dL (6.5-8.0)
[2020-07-04] MEDS: Digoxin 0.5 MG/2 ML AMPUL 0.25 MG IVPUSH (12:38)
[2020-07-04 12:52] LABS: Procalcitonin 0.25 ng/mL
[2020-07-04 13:44] LABS: Reflex Lactate? Lactic Acid Added
[2020-07-04 14:02] LABS: Cancel Lactic Acid Canceled
--- NOTE | 2020-07-04 14:11 | PM.PNCARD ---
Subjective Subjective Date of Service: 07/04/20 Interval history: She is generally weak and tired and does not feel good. Review of Systems Constitutional: Reports as per HPI, Reports fatigue, Reports malaise and Reports poor appetite Cardiovascular: Reports as per HPI, Reports no additional cardiovascular complaints, Denies chest pain, Denies Epigastric Pain, Denies diaphoresis, Denies syncope, Reports pedal edema and Reports dyspnea Respiratory: Reports dyspnea Denies syncope Endocrine: Reports fatigue Physical Exam Vital Signs: Last Vital Signs Temp 97.4 F 07/04/20 12:00 Pulse 119 H 07/04/20 13:57 Resp 15 07/04/20 13:57 BP 98/65 07/04/20 13:57 Pulse Ox 96 07/04/20 13:57 Body Mass Index 32.4 Const General: cooperative, comfortable and no acute distress Orientation/consciousness: patient oriented x3 HENMT Other: Unremarkable Neck Neck: Yes normal visual inspection Chest Chest palpation & inspection: normal inspection of the chest Resp Auscultation: crackles and no wheezes Cardio Jugular venous distension: no JVD Palpation: normal PMI Heart sounds: S1 normal heart sound present, S2 normal heart sound present, no gallops, no murmurs and no rubs GI Palpation (GI): Soft to palpation Back/Spine/Pelvis Other: unremarkable Skin General skin exam: no rashes or lesions noted Neuro General: patient oriented x3 Extrem General: Yes edema Psych Mental Status: mental status grossly normal Results Labs and Meds Result diagrams: 07/04/20 05:08 07/04/20 11:36 Lab results: Laboratory Results - last 24 hr 07/01/20 07/03/20 07/03/20 Unknown 13:10 14:17 WBC RBC Hgb Hct MCV MCH MCHC RDW Plt Count MPV Immature Gran % (Auto) Neut % (Auto) Lymph % (Auto) [place] % (Auto) Eos % (Auto) Baso % (Auto) Lymph # (Auto) [place] # (Auto) Eos # (Auto) Baso # (Auto) Abs Immat Gran (auto) Absolute Neuts (auto) Absolute Nucleated RBC Nucleated RBC % (auto) Smear Tech's Comments VBG pH VBG pCO2 VBG pO2 VBG HCO3 VBG O2 Saturation VBG Base Excess Sodium Potassium Chloride Carbon Dioxide Anion Gap BUN Creatinine Estim Creat Clear Calc Estimated GFR POC Glucose Random Glucose Lactic Acid Lactic Acid Fup @ 2Hr Cancelled Calcium Phosphorus 8.7 H Magnesium Total Bilirubin AST ALT Alkaline Phosphatase C-Reactive Protein Total Protein Albumin Procalcitonin Urine Color Urine Appearance Urine pH Ur Specific Ro[place] Urine Protein Urine Glucose (UA) Urine Ketones Urine Blood Urine Nitrite Ur Leukocyte Esterase Urine RBC Urine WBC Ur Squamous Epith Cells Urine Bacteria Peritoneal WBC Peritoneal RBC Periton Neutrophils Periton Lymphocytes Peritoneal Monocytes Peritoneal Eosinophils Peritoneal Basophils Peritoneal Other Cells Peritoneal Tot Protein Peritoneal LDH Peritoneal Glucose Ur L.pneumophila Ag Not Detected 07/03/20 07/03/20 07/03/20 15:35 15:35 16:53 WBC RBC Hgb Hct MCV MCH MCHC RDW Plt Count MPV Immature Gran % (Auto) Neut % (Auto) Lymph % (Auto) [place] % (Auto) Eos % (Auto) Baso % (Auto) Lymph # (Auto) [place] # (Auto) Eos # (Auto) Baso # (Auto) Abs Immat Gran (auto) Absolute Neuts (auto) Absolute Nucleated RBC Nucleated RBC % (auto) Smear Tech's Comments VBG pH VBG pCO2 VBG pO2 VBG HCO3 VBG O2 Saturation VBG Base Excess Sodium Potassium Chloride Carbon Dioxide Anion Gap BUN Creatinine Estim Creat Clear Calc Estimated GFR POC Glucose 152 H Random Glucose Lactic Acid Lactic Acid Fup @ 2Hr Calcium Phosphorus Magnesium Total Bilirubin AST ALT Alkaline Phosphatase C-Reactive Protein Total Protein Albumin Procalcitonin Urine Color Urine Appearance Urine pH Ur Specific [place] Urine Protein Urine Glucose (UA) Urine Ketones Urine Blood Urine Nitrite Ur Leukocyte Esterase Urine RBC Urine WBC Ur Squamous Epith Cells Urine Bacteria Peritoneal WBC 0.011 Peritoneal RBC 0.002 Periton Neutrophils SOFTWARE VALIDATION ENGINEER Periton Lymphocytes 75 Peritoneal Monocytes 25 Peritoneal Eosinophils SOFTWARE VALIDATION ENGINEER Peritoneal Basophils SOFTWARE VALIDATION ENGINEER Peritoneal Other Cells SOFTWARE VALIDATION ENGINEER Peritoneal Tot Protein 3.4 Peritoneal LDH 92 Peritoneal Glucose 171 Ur L.pneumophila Ag 07/03/20 07/03/20 07/03/20 21:26 22:18 22:18 WBC RBC Hgb Hct MCV MCH MCHC RDW Plt Count MPV Immature Gran % (Auto) Neut % (Auto) Lymph % (Auto) [place] % (Auto) Eos % (Auto) Baso % (Auto) Lymph # (Auto) [place] # (Auto) Eos # (Auto) Baso # (Auto) Abs Immat Gran (auto) Absolute Neuts (auto) Absolute Nucleated RBC Nucleated RBC % (auto) Smear Tech's Comments VBG pH VBG pCO2 VBG pO2 VBG HCO3 VBG O2 Saturation VBG Base Excess Sodium 134 L Potassium 5.2 H Chloride 102 Carbon Dioxide 16 L Anion Gap 21 H BUN 81 H* Creatinine 4.19 H* Estim Creat Clear Calc 13.8 Estimated GFR 11 POC Glucose 147 H Random Glucose 163 H Lactic Acid 2.3 H* Lactic Acid Fup @ 2Hr Calcium 7.5 L Phosphorus Magnesium Total Bilirubin AST ALT Alkaline Phosphatase C-Reactive Protein Total Protein Albumin Procalcitonin Urine Color Urine Appearance Urine pH Ur Specific [place] Urine Protein Urine Glucose (UA) Urine Ketones Urine Blood Urine Nitrite Ur Leukocyte Esterase Urine RBC Urine WBC Ur Squamous Epith Cells Urine Bacteria Peritoneal WBC Peritoneal RBC Periton Neutrophils Periton Lymphocytes Peritoneal Monocytes Peritoneal Eosinophils Peritoneal Basophils Peritoneal Other Cells Peritoneal Tot Protein Peritoneal LDH Peritoneal Glucose Ur L.pneumophila Ag 07/03/20 07/04/20 07/04/20 22:18 00:18 01:12 WBC RBC Hgb Hct MCV MCH MCHC RDW Plt Count MPV Immature Gran % (Auto) Neut % (Auto) Lymph % (Auto) [place] % (Auto) Eos % (Auto) Baso % (Auto) Lymph # (Auto) [place] # (Auto) Eos # (Auto) Baso # (Auto) Abs Immat Gran (auto) Absolute Neuts (auto) Absolute Nucleated RBC Nucleated RBC % (auto) Smear Tech's Comments VBG pH 7.20 L* VBG pCO2 38 VBG pO2 85 VBG HCO3 15 VBG O2 Saturation 94.0 VBG Base Excess -11.7 Sodium Potassium Chloride Carbon Dioxide Anion Gap BUN Creatinine Estim Creat Clear Calc Estimated GFR POC Glucose Random Glucose Lactic Acid Lactic Acid Fup @ 2Hr 2.5 H* Calcium Phosphorus Magnesium Total Bilirubin AST ALT Alkaline Phosphatase C-Reactive Protein Total Protein Albumin Procalcitonin Urine Color BROWN Urine Appearance TURBID Urine pH 6.5 Ur Specific [place] >= 1.030 H Urine Protein 3+ H Urine Glucose (UA) 100 H Urine Ketones 5 Urine Blood 3+ H Urine Nitrite NEG Ur Leukocyte Esterase TRACE H Urine RBC TNTC H Urine WBC 10-14 H Ur Squamous Epith Cells 1+ Urine Bacteria 2+ Peritoneal WBC Peritoneal RBC Periton Neutrophils Periton Lymphocytes Peritoneal Monocytes Peritoneal Eosinophils Peritoneal Basophils Peritoneal Other Cells Peritoneal Tot Protein Peritoneal LDH Peritoneal Glucose Ur L.pneumophila Ag 07/04/20 07/04/20 07/04/20 05:08 05:08 05:08 WBC 13.6 H RBC 3.54 L Hgb 9.1 L Hct 30.7 L MCV 86.7 MCH 25.7 L MCHC 29.6 L RDW 17.0 H Plt Count 224 MPV 10.0 Immature Gran % (Auto) 0.5 H Neut % (Auto) 79.5 H Lymph % (Auto) 7.6 L [place] % (Auto) 12.2 H Eos % (Auto) 0.1 Baso % (Auto) 0.1 Lymph # (Auto) 1.0 L [place] # (Auto) 1.7 H Eos # (Auto) 0.0 Baso # (Auto) 0.0 Abs Immat Gran (auto) 0.07 H Absolute Neuts (auto) 10.9 H Absolute Nucleated RBC 0.070 H Nucleated RBC % (auto) 0.5 H Smear Tech's Comments VERIFIED VBG pH 7.19 L* VBG pCO2 40 VBG pO2 125 VBG HCO3 15 VBG O2 Saturation 99.0 VBG Base Excess -11.7 Sodium 135 Potassium 5.4 H Chloride 103 Carbon Dioxide 14 L Anion Gap 23 H BUN 86 H* Creatinine 4.46 H* Estim Creat Clear Calc 12.9 Estimated GFR 10 POC Glucose Random Glucose 169 H Lactic Acid Lactic Acid Fup @ 2Hr Calcium 7.4 L Phosphorus 9.1 H Magnesium Total Bilirubin AST ALT Alkaline Phosphatase C-Reactive Protein 0.69 H Total Protein Albumin Procalcitonin Urine Color Urine Appearance Urine pH Ur Specific [place] Urine Protein Urine Glucose (UA) Urine Ketones Urine Blood Urine Nitrite Ur Leukocyte Esterase Urine RBC Urine WBC Ur Squamous Epith Cells Urine Bacteria Peritoneal WBC Peritoneal RBC Periton Neutrophils Periton Lymphocytes Peritoneal Monocytes Peritoneal Eosinophils Peritoneal Basophils Peritoneal Other Cells Peritoneal Tot Protein Peritoneal LDH Peritoneal Glucose Ur L.pneumophila Ag 07/04/20 07/04/20 07/04/20 08:06 11:10 11:36 WBC RBC Hgb Hct MCV MCH MCHC RDW Plt Count MPV Immature Gran % (Auto) Neut % (Auto) Lymph % (Auto) [place] % (Auto) Eos % (Auto) Baso % (Auto) Lymph # (Auto) [place] # (Auto) Eos # (Auto) Baso # (Auto) Abs Immat Gran (auto) Absolute Neuts (auto) Absolute Nucleated RBC Nucleated RBC % (auto) Smear Tech's Comments VBG pH VBG pCO2 VBG pO2 VBG HCO3 VBG O2 Saturation VBG Base Excess Sodium 135 Potassium 4.3 D Chloride 103 Carbon Dioxide 18 L Anion Gap 18 BUN 70 H Creatinine 3.75 H Estim Creat Clear Calc 15.4 Estimated GFR 12 POC Glucose 149 H 156 H Random Glucose 166 H Lactic Acid Lactic Acid Fup @ 2Hr Calcium 7.6 L Phosphorus Magnesium 2.0 Total Bilirubin 2.1 H AST 43 H ALT 25 Alkaline Phosphatase 66 C-Reactive Protein Total Protein 6.9 Albumin 3.4 L Procalcitonin Urine Color Urine Appearance Urine pH Ur Specific [place] Urine Protein Urine Glucose (UA) Urine Ketones Urine Blood Urine Nitrite Ur Leukocyte Esterase Urine RBC Urine WBC Ur Squamous Epith Cells Urine Bacteria Peritoneal WBC Peritoneal RBC Periton Neutrophils Periton Lymphocytes Peritoneal Monocytes Peritoneal Eosinophils Peritoneal Basophils Peritoneal Other Cells Peritoneal Tot Protein Peritoneal LDH Peritoneal Glucose Ur L.pneumophila Ag 07/04/20 07/04/20 07/04/20 11:36 11:36 11:36 WBC RBC Hgb Hct MCV MCH MCHC RDW Plt Count MPV Immature Gran % (Auto) Neut % (Auto) Lymph % (Auto) [place] % (Auto) Eos % (Auto) Baso % (Auto) Lymph # (Auto) [place] # (Auto) Eos # (Auto) Baso # (Auto) Abs Immat Gran (auto) Absolute Neuts (auto) Absolute Nucleated RBC Nucleated RBC % (auto) Smear Tech's Comments VBG pH 7.23 L VBG pCO2 37 VBG pO2 100 VBG HCO3 16 VBG O2 Saturation 97.0 VBG Base Excess -10.4 Sodium Potassium Chloride Carbon Dioxide Anion Gap BUN Creatinine Estim Creat Clear Calc Estimated GFR POC Glucose Random Glucose Lactic Acid 2.6 H* Lactic Acid Fup @ 2Hr Calcium Phosphorus Magnesium Total Bilirubin AST ALT Alkaline Phosphatase C-Reactive Protein Total Protein Albumin Procalcitonin 0.25 Urine Color Urine Appearance Urine pH Ur Specific [place] Urine Protein Urine Glucose (UA) Urine Ketones Urine Blood Urine Nitrite Ur Leukocyte Esterase Urine RBC Urine WBC Ur Squamous Epith Cells Urine Bacteria Peritoneal WBC Peritoneal RBC Periton Neutrophils Periton Lymphocytes Peritoneal Monocytes Peritoneal Eosinophils Peritoneal Basophils Peritoneal Other Cells Peritoneal Tot Protein Peritoneal LDH Peritoneal Glucose Ur L.pneumophila Ag Imaging Radiologist's impression: Impressions Abdomen/Pelvis CT 07/03/20 14:00 IMPRESSION: 1. Moderate left and small right pleural effusions. Associated atelectasis. No separate consolidation. There is central vascular prominence which could be associated with mild edema. 2. Small volume of ascites with diffuse anasarca. 3. Questionable nodularity of the liver contour. Correlate for cirrhosis. No suspicious lesions. 4. Nonobstructing right lower pole renal calculus. Chest CT 07/03/20 14:00 IMPRESSION: 1. Moderate left and small right pleural effusions. Associated atelectasis. No separate consolidation. There is central vascular prominence which could be associated with mild edema. 2. Small volume of ascites with diffuse anasarca. 3. Questionable nodularity of the liver contour. Correlate for cirrhosis. No suspicious lesions. 4. Nonobstructing right lower pole renal calculus. Pulmonary Perfusion Imaging 07/03/20 14:33 IMPRESSION: Normal perfusion scan. Results were discussed with ICU Dr. Palafox by phone at 5:04 PM Paracentesis Ultrasound 07/03/20 15:30 IMPRESSION: Successful ultrasound-guided diagnostic paracentesis performed without immediate complications. Venous Duplex 07/03/20 17:48 IMPRESSION: Exam limited by edema. No DVT demonstrated in the bilateral lower extremity. Chest X-Ray 07/03/20 21:30 IMPRESSION: New right IJ central venous catheter tip near the expected cavoatrial junction. No pneumothorax. Span lungs with basilar atelectatic changes and small layering left effusion. Progress Note: A&P Assessment and plan (1) Hypotension: Status: Acute (2) Atrial fibrillation with rapid ventricular response: Status: Acute (3) Acute GI bleeding: Status: Acute (4) Pneumonia: Status: Acute (5) Acute kidney injury: Status: Acute (6) Primary biliary cirrhosis: Status: Acute Assessment and Plan: Clinically, she does not appear to be pure cardiogenic shock. If she indeed went into atrial fibrillation in the last few days, that could potentially lead to hypotension in the background of cardiomyopathy. As she has no symptoms from it like palpitations, difficult to say if the atrial fibrillation is chronic versus new from last few days. Prior EKG from 2019 showed sinus rhythm but we do not have anything in the interim. Her LV function does appear to be however worse than in the last study from 2019, but the stroke volume itself did not appear low enough to cause this degree of hypotension. She does have chronic liver disease/cirrhosis which itself is a risk for hypotension. Volume contraction from GI blood loss, undiagnosed atypical infection and likely some combination of all of these is leading to her clinical picture of hypotension and renal failure. Her rate is not too fast and just about 100-120 or so/Min. Will hold cardioversion especially in the context of GI blood loss. She is also not a suitable candidate for any of the antiarrhythmics. Empiric pressor support. Would recommend discussing with ICU team at [facility] where she is a transplant candidate for liver transplant. With her multiple medical comorbidities including advanced liver disease, acute renal failure, cardiomyopathy, she will be best managed at a tertiary care center and hence recommend transfer. Fall Risk Details Current Medications: Current Medications Generic Name Dose Route Start Last Admin Trade Name Freq PRN Reason Stop Dose Admin Acetaminophen 650 mg 06/29/20 19:32 Acetaminophen 325 Mg Tablet PO Q4H PRN pain or fever Albuterol Sulfate 2 puff 06/29/20 16:41 Albuterol Sulfate 90 Mcg 8 Gm Inhaler INHALE Q6H PRN Cough Benzonatate 100 mg 06/30/20 10:49 Benzonatate 100 Mg Capsule PO TID PRN Cough Cyanocobalamin 1,000 mcg 07/03/20 10:00 07/03/20 10:57 Cyanocobalamin (Vitamin B-12) 1,000 Mcg/Ml Vial IM Not Given Q30D RADHA Fentanyl 25 mcg 07/03/20 12:02 07/03/20 14:21 Fentanyl Citrate/Pf 100 Mcg/2 Ml Vial IVPUSH 25 mcg Q5M PRN Administration discomfort Guaifenesin/Dextromethorphan 5 ml 06/30/20 10:49 Guaifenesin Dm 100/10/5 Ml 5 Ml Syrup PO Q4H PRN cough Heparin Sodium (Porcine) 5,000 unit 07/05/20 06:00 Heparin Sodium,Porcine 5,000 Unit/Ml Vial INTRACATH 07/05/20 06:01 ONCE ONE Hydrocortisone Sodium Succinate 50 mg 07/04/20 01:00 07/04/20 12:38 Hydrocortisone Sod Succ/Pf 100 Mg Vial IVPUSH 50 mg Q6H RADHA Administration Hydroxyzine HCl 25 mg 06/29/20 16:41 Hydroxyzine Hcl 25 Mg Tablet PO Q6H PRN itching Norepinephrine Bitartrate 8 mg in 250 mls @ 0 mls/hr 07/03/20 10:15 07/04/20 12:53 Levophed IVCONT 0.3 mcg/kg/min .Q0M RADHA 46.69 mls/hr Administration Protocol Per Protocol Doxycycline Hyclate 100 mg/ 250 mls @ 166.67 mls/hr 07/03/20 17:00 07/04/20 06:20 Sodium Chloride IV Infused Q12H [facility] Infusion Vasopressin 20 unit/ Sodium 101 mls @ 12.12 mls/hr 07/04/20 06:30 07/04/20 14:07 Chloride IVCONT 0.08 unit/min .Q8H20M RADHA 24.24 mls/hr Infusion 0.04 UNIT/MIN Esmolol HCl 2,500 mg in 250 mls @ 0 mls/hr 07/04/20 11:30 07/04/20 11:42 Brevibloc/Nacl IVCONT 10 mcg/kg/min .Q0M RADHA 4.98 mls/hr Titration Protocol Per Protocol Insulin Human Lispro 0 unit 06/29/20 21:00 07/04/20 11:13 Insulin Lispro 100 Unit/Ml 3 Ml Vial SUBCUT Not Given QIDACHS [facility] Protocol Levothyroxine Sodium 175 mcg 06/30/20 09:00 07/04/20 08:14 Levothyroxine Sodium 175 Mcg Tablet PO Not Given DAILY [facility] Lorazepam 0.5 mg 06/29/20 16:41 06/29/20 23:45 Lorazepam 0.5 Mg Tablet PO 0.5 mg DAILY PRN Administration anxiety Midodrine 5 mg 07/03/20 09:00 07/04/20 13:50 Midodrine Hcl 5 Mg Tablet PO Not Given TID RADHA Ondansetron HCl 4 mg 06/30/20 13:40 07/03/20 23:55 Ondansetron Hcl 4 Mg/2 Ml Vial IVPUSH 4 mg Q8H PRN Administration Nausea Pantoprazole Sodium 40 mg 07/03/20 18:25 07/04/20 06:03 Pantoprazole Sodium 40 Mg/10 Ml Vial IVPUSH 40 mg DAILY@0630 [facility] Administration Paroxetine HCl 40 mg 06/30/20 09:00 07/04/20 08:15 Paroxetine Hcl 40 Mg Tablet PO Not Given DAILY RADHA Sodium Chloride 3 ml 06/30/20 00:00 07/04/20 12:39 0.9 % Sodium Chloride Flush 3 Ml Syringe IVFLUSH 3 ml QSHIFT [facility] Administration Sodium Chloride 3 ml 07/04/20 16:00 0.9 % Sodium Chloride Flush 3 Ml Syringe IVFLUSH QSHIFT RADHA Ursodiol 600 mg 06/29/20 21:00 07/04/20 13:50 Ursodiol 300 Mg Capsule PO Not Given TID RADHA Time Spent With Patient Time: Total time spent is greater than 50% in coordination of care (as documented) at patient's floor/unit and/or counseling patient: Time with patient: less than 15 minutes
--- NOTE | 2020-07-04 14:39 | PC.NURSE ---
Pt afebrile, oriented x3 throughout shift, has been drowsy, wakes to voice. Dialysis was underway at start of shift, neutral fluid balance. Pt was tachycardic 120-130, levo was started to be titrated down to 0.26 with minimal effect on reducing HR. BP MAP remained >65. Vasopressin running at 0.04. At 1130 esmolol started at 20mcg/kg/min pt SBP 70-80, levo up to 0.3 and esmolol down to 10mcg/kg/min. Pt HR 110-128, BP MAP >65. At 1300 BP 87/60, vasopressin titrated up to 0.08 per RENE TATE. Afib. HR still elevated and digoxin 0.25mg given at 1300 with some effect, HR currently 117. BP 123/64. Pt lungs dim with FC in bases bilat. On 4L/min NC, SaO2 91%. RR 18-20. Unable to give PO medications, pt does not tolerate swallowing pills, gets nauseous. Labs repeated after dialysis. Lactic 2.6, MD aware, no new orders. Pt has bruise to right buttock, repo q2h, barrier cream applied. Urine output bloody, 12ml from 0700 to 1400, MD aware. Ray updated.
[2020-07-04 14:47] LABS: Complement C3 53 mg/dL (83-193)
[2020-07-04 15:24] LABS: Ammonia 73 umol/L (13-55)
[2020-07-04 15:37] LABS: Myeloperoxidase Antibody <1.0 AI; Proteinase 3 PR3 Antibodies <1.0 AI
[2020-07-04 16:36] LABS: Glucose, Whole Blood 173 mg/dL (60-115)
[2020-07-04 17:59] LABS: Base Excess VBG -12.4 mmol/L; HCO3 VBG 14 mmol/L; PCO2 VBG 33 mmHg; PO2 VBG 109 mmHg; pH VBG 7.22 (7.32-7.43)
[2020-07-04] MEDS: fentaNYL citrate/PF 100 MCG/2 ML VIAL 25 MCG IVPUSH ×4 (19:06→22:21)
--- NOTE | 2020-07-04 19:37 | W.PM.CCHP ---
Procedures Arterial Line Arterial Line Comments: A right axillary arterial line was placed with the use of ultrasound with the help of Dr. Palafox. After identifying landmarks and the appropriate vessel, the area was prepped in a sterile fashion using wide cleaning technique with chlorhexidine. Patient was draped properly, landmarks were identified again, using a 2 cm thin long needle, the right axillary artery was accessed with positive pulsatile red blood return, the wire was threaded, needle was removed. Subsequently the arterial catheter was inserted over the wire and the wire was removed,immediately this was connected to the arterial pressure monitoring system with a good wave. The line was sutured in place with 3 sutures. Bio patch was applied and a dressing was applied. There was no complications, patient tolerated this well. Consent: Elective - informed consent obtained Sterile Technique Used: Yes Time out performed: Yes Size (Gauge): 16 Technique used: direct puncture technique Post-Procedure: line sutured into place and dry sterile dressing placed Patient tolerated procedure: well and no complications Site: right (AXILLARY)
--- NOTE | 2020-07-04 19:38 | PC.NURSE ---
Assumed patient care at 1500. Patient required more O2 and vasopressor. Currently on 100% NRB. BP read as low as 40/20 and Levo and vasopressin had to be titrated up as well. Dr. Jean was not in the building and was called during this time. He ordered a stat cxr and a VBG. When patient status continued to decline, Dr. jean was called again and he came into the hospital. He placed a R axillary arterial line. Patient mental status declining as well. aware. Will continue to monitor.
[2020-07-04 19:58] LABS: Pt Ventilation O2% 100%
[2020-07-04 20:02] LABS: pH ABG 7.21 (7.35-7.45)
[2020-07-04 20:03] LABS: ABG PCO2 30 mmHg (32-45); Base Excess ABG -13.7; HCO3 ABG 12 mmol/L (22-26); PO2 ABG 250 mmHg (83-108)
[2020-07-04] MEDS: ondansetron HCL 4 MG/2 ML VIAL IVPUSH (20:03)
[2020-07-04 20:27] LABS: Lactic Acid 4.1 mmol/L (0.5-2.0)
[2020-07-04 21:59] LABS: Reflex Lactate? Lactic Acid Added
[2020-07-04 22:02] LABS: Glucose, Whole Blood 170 mg/dL (60-115)
[2020-07-04 22:32] LABS: ~Lactic Acid-LAB USE ONLY 5.5 mmol/L (0.5-2.0)
[2020-07-04 23:00] LABS: Pt Ventilation O2% 100%
[2020-07-04] MEDS: Sodium Bicarbonate 8.4% 50 MEQ/50 ML VIAL IVPUSH ×2 (23:03→23:32)
[2020-07-04 23:09] LABS: ABG PCO2 33 mmHg (32-45); HCO3 ABG 10 mmol/L (22-26); PO2 ABG 152 mmHg (83-108)
[2020-07-04 23:10] LABS: Base Excess ABG -17.6
[2020-07-04 23:11] LABS: pH ABG 7.09 (7.35-7.45)
[2020-07-05 00:12] LABS: Reflex Lactate? 2 Y
[2020-07-05 01:00] VITALS: BP 101/55; PULSE 109; RESP 21
[2020-07-05 01:02] LABS: ~Lactic Acid-LAB USE ONLY 8.1 mmol/L (0.5-2.0)
[2020-07-05] MEDS: Esmolol HCl/NaCl Iso 2,500 MG/250 ML IV.SOLN 49.8 MG IVCONT (01:36)
[2020-07-05] MEDS: 0.9 % Sodium Chloride Flush 3 ML SYRINGE IVFLUSH ×2 (01:37)
[2020-07-05 01:59] LABS: Pt Ventilation O2% 100%
[2020-07-05 02:00] VITALS: BP 102/57; PULSE 116; RESP 24; TEMP 36.5
[2020-07-05 02:03] LABS: ABG PCO2 35 mmHg (32-45); HCO3 ABG 11 mmol/L (22-26); PO2 ABG 216 mmHg (83-108)
[2020-07-05 02:26] LABS: Lactic Acid 9.3 mmol/L (0.5-2.0)
[2020-07-05 03:00] VITALS: BP 97/54; PULSE 115; RESP 26
[2020-07-05] MEDS: HYDROmorphone HCl 0.5 MG/0.5 ML SYRINGE IVPUSH (03:50)
[2020-07-05 03:56] LABS: Reflex Lactate? Lactic Acid Added
--- NOTE | 2020-07-05 04:00 | PC.NURSE ---
ASSUMED CARE OF PT AT [address] LÓPEZ WAS PERFORMING A QUICK LOOK ECHOCARDIOGRAM AT THE BEDSIDE AND THEN HE PUT IN AN AXILLARY JOHN RT SIDE. PT TOLERATED PROCEDURE WELL. BP 122/68 AND CORRELATES WITH MANUAL WHICH WAS 115/60. PT ON LEVOPHED AT 0.5 MCG/KG/MIN BUT WAS INCREASED TO 0.8 DURING THE PROCEDURE. VASOPRESSIN ALSO INFUSING AT 0.1 MCG/KG/MIN. MONITOR SHOWED AFIB WITH A RAPID VENT RESPONSE 120'S. ESMOLOL DRIP RESTARTED AND TITRATED UP TO 100 MCG/KG/MIN. UNABLE TO GET A GOOD O2 SAT READING AND AND ABG'S DRAWN AT 1954. RESULTS SHOWED PH 7.21, PCO2 30, PO2 250, BICARB 12. LACTIC ACID LEVEL ALSO AT THIS TIME...4.1. LABS DRAWN AGAIN AT 2199: LACTIC 5.5. PT WAS LETHARGIC BUT RESPONSIVE TO NAME AND COULD ANSWER SOME QUESTIONS BUT NOT ALL. WANTED TO GET OOB AND WANTED THE LIAO OUT. TOLD HER SHE WAS TOO ILL TO GET UP AND HER BP WAS TOO LOW. SHE JUST MOANED IN RESPONSE. SHE WAS RESTLESS IN BED AND WOULD HAVE NO CONSIDERATION FOR THE IV LINES/WIRES. RPT LABS AT 2329 SHOWED LACTIC GOING UP AND WAS 8.1. BICARB 2 NAMPS ORDERED AND GIVEN. STILL UNABLE TO OBTAIN AN ACCURATE O2 SAT. ABG'S DRAWN AT 2244 WERE NOT SIGNIFICANTLY CHANGED FROM THE PRIOR DRAW. AGAIN REPEATED THE ABG'S AT 144 AND NO SIGNIFICANT CHANGE AGAIN NOTED. TAMMIE AYALA AT BEDSIDE SEVERAL TIMES THROUGHOUT THE EVENING. O2 DECREASED TO 4L VIA NASAL CANNULA PER JAMIE CHO. BICARB 2 AMPS GIVEN FOR INCREASING LACTIC. JAMIE CALLED THE PATIENTS MILAN TO INFORM HIM OF PT'S WORSENING CONDITION. DNR STATUS OBTAINED. LAST LACTIC WAS 9.3 AT DRAWN AT 0145 AND REPORTED TO THIS RN BY THE LAB AT 0230. TAMMIE AYALA NOTIFIED AND CALLED DR LÓPEZ. AFTER THIER DISCUSSION, THEY DECIDED IT WAS BEST TO CALL THE AND ALLOW HIM TO COME IN TO SEE HIS HER OUTCOME [employer] [facility]. WAS CALLED AT 0240 AND CAME TO HOSPITAL AT 0320. TAMMIE AYALA SPOKE WITH THEM. THEY DECIDED TO MAKE THE PT COMFORT MEASURES ONLY. AT 0350 PT RECEIVED DILAUDID 0.5 MG IV AND ALL IV DRIPS WERE SHUT OFF. FAMILY WAS AND STILL IS IN THE ROOM WITH THE PT.
--- NOTE | 2020-07-05 04:10 | P.PNCC_ITS ---
Critical Care Event Note Summary Code activated: No Narrative: Throughout the night, I have spent significant time taking care of this patient given her ongoing decompensation. Her lactic acid went up from 4.1 to 5.5 and subsequently to 8.1. Patient's blood pressure seemed to be stable but her heart rate was high in the 120s to 130s and irregular therefore a started back her esmolol and decrease Levophed slightly with the goal of keeping her systolic blood pressure between 90 and 100 with a map of 65 or above by improving her CO. However as above mentioned, the patient continued to deteriorate clinically as she is no longer mentating well. In addition her perfusion is so bad that we could not get an accurate O2 sat reading therefore we based her oxygenation on blood gases readings he made the adjustments for oxygen supplementation based on that. At 10:30 p.m. on 07/04/2020 I reached out to the transfer center of [facility] and discussed the case with them for they are very aware of with the patient is. They understood that the patient continues to deteriorate in her metabolic acidosis is worse as well as her cardiac status and renal dysfunction, this point to continue not to have a bed, but they mentioned that this will certainly be a priority to them and that they will let us know as soon as possible. The transfer center coordinator explain to me that she will further mention the case to the current store associate Dr. Ervin. At 1:00 a.m. today 07/05/2020 I have reached out to the patient's Mr. Ray Hoffmann for the 2nd time, initially I gave him a clinical update however the 2nd time explain to him of her clinical decompensation and the fact that she is no longer able to make her own decisions. He is very aware of everything that is gone on and given my concern that at some point she could suffer a cardiopulmonary arrest I discussed in detail advanced directives with him and the decision was made by him that if she was to have the above-mentioned events, he would not want her resuscitated or intubated as these had been her wishes during conversations that they have had in the past. She understands that intubation with these now or during a transplant surgery, does no warranty a good prognosis and it may lead to an undesired outcome included but not limited to anoxic brain injury, failure to come off the ventilator, tracheostomy among others and once again he states that this is not something that she would want. This conversation decision was witnessed by the patient's nurse Marysol and the order was changed in the system. Repeat lactic acid at 02:30 a.m. is 9.3. The patient clearly continues to decom pensate, her mental status is worse and at this point I am not sure that the patient will survive or last significantly longer therefore the will be called in to the hospital to see his and we will be happy to answer any questions. At 3:25 a.m., family members have arrived. Once in the above-mentioned discussion took place and they understand all, the condition is critical and her prognosis is guarded, they would like to continue with the DNR DNI at this point the transplant considerations off the table. If anything at the and her son will talk as they are considering to make her comfortable for they do not like to see her suffer the way that she is at this point. A discussion about end of life care and how we withheld her out to make this transition as this month as possible to place in order to make this process in a humane and non suffering way. 0350 am. Family has decided to make the patient comfort measures only, at this point we will withdrawal care and will start her on Dilaudid p.r.n. for known verbal cues of distress including moaning and sweating, crying, Ativan Intensol under the tongue and if necessary atropine versus a scopolamine for secretions. At this point will give her the 1st dose of Dilaudid and we will shut off all the medications that she is currently getting. Patient's care was discussed in detail with Dr. Palafox. He is aware of all the above as well as the plan of care for this patient. Critical care time used for critical evaluation of this patient, diagnosis, treatment and coordination of care, review her records and documentation TOTAL CRITICAL CARE TIME 90 MIN . This case had a high probability of a clinically significant, sudden, or life threatening deterioration of this patient's condition which required my full and direct attention, intervention and personal management. Critical Care Time (minutes): 90
[2020-07-05] MEDS: HYDROmorphone HCl 0.5 MG/0.5 ML SYRINGE 1 MG IVPUSH ×3 (04:43→06:09)
[2020-07-05] MEDS: LORazepam 2 MG/ML VIAL 1 MG IVPUSH (04:50)
[2020-07-05] MEDS: fentaNYL citrate/PF 100 MCG/2 ML VIAL 25 MCG IVPUSH (05:19)
--- NOTE | 2020-07-05 06:29 | PC.NURSE ---
PT MOSTLY ON CPAP OVERNIGHT. SHE IS ALERT AND FOLLOWS COMMANDS. COUGHING UP THICK SPUTUM. WORE HIGH FLOW FROM APPROXIMATELY 1930 TO 2330. HS POC 86. PT TOOK 2 CUPS OF JUICE PO. ALSO HAD SOME JELLO. DENIES PAIN. TURNED AND REPOS WITH BACK CARE WHICH STIMULATES COUGHING AND DEEP BREATHING.
--- NOTE | 2020-07-05 06:37 | P.DS_ITS ---
DS: Providers Provider Date of Service: 07/05/20 Date of admission: 06/29/20 16:41 Primary care physician: Diaz Casiano PA-C Consults: Reason of : Multi organ failure in the setting of primary biliary cirrhosis, cardiorenal syndrome. DISCHARGE DIAGNOSIS: PRIMARY BILIARY CIRRHOSIS CARDIORENAL SYNDROME MULTIORGAN FAILURE ATRIAL FIBRILLATION POST WATCHMAN PROCEDURE BIVENTRICULAR CARDIOMYOPATHY OF UNKNOWN ETIOLOGY REFRACTORY HYPOTENSION ACUTE KIDNEY INJURY SECONDARY TO ACUTE TUBULAR NECROSIS IN THE SETTING OF HYPOTENSION UPPER GI BLEED HPI/HOSPITAL COURSE: Mrs. Hoffmann was admitted to ICU Jul 03 bec of hypotension and acute renal failure. The patient is a 65 yr-old woman with PMHx of bronchitis; primary biliary cirrhosis, on the transplant list [facility]; biventricular cardiomyopathy (see below; etiology unknown), followed by cardiology at [facility]; atrial fibrillation, status post Watchman procedure at [facility], no longer on anticoagulation but still on full dose aspirin; hypertension; diabetes; hypothyroidism; pancytopenia; iron deficiency anemia; and chronic pain. Surgical history is notable for cholecystectomy. Echo on 01/16/19 (reportedly done bec of ?fluid overload?) showed moderately decreased LV systolic function moderate global hypokinesis, with no regional wall motion abnormalities. EF 30-35%. The right ventricle was reportedly normal in size and systolic function. There was severe biatrial enlargement. Aortic valve was normal. There was mild MR. There was moderate TR with a 2.5 m/sec gradient (26mm). The IVC was dilated less than 50% inspiratory collapse. CVP estimate was 15mm. RVSP estimate was 41 mm. According to [facility] records, echo in Mar, 2019 showed normal EF. On June 29, she presented to Urgent Care with a dry cough x 3 weeks, with low-grade temp and dark stools. No GI sx or recent travel or sick contacts. At Urgent Care, COVID test was negative, but her HR was in 140s, and she was sent to the ER. In the ED, HR was 130, afib. BP 108/70. Sat was 94-98% on room air. Stool was black, heme positive. Her hemoglobin was noted to be 7.9 (baseline 10-13), platelet count 73 (baseline 80-130). WBC was 3.6 (baseline 3-4). BUN/creat were 21/0.9 (baseline about 0.8, but she did have one value of 1.4 in 2019, ? reason). CXR was read as showing diffuse bilateral patchy ground-glass opacities (on my reading today, I?m unimpressed that there?s any acute dz on the film). She was given metoprolol, PPI, and Levaquin, and transfused 1 unit RBCs. Hb savi to 9.2, and has been stable since then. No clinical bleeding. Blood pressures were running mostly in the SBP 90-110 range. On July 01, renal indices bumped to 41/1.5. She underwent EGD that day, which showed Grade 1 nonbleeding esophageal varices, gastric antral vascular ectasia without bleeding, and mild portal hypertensive gastropathy. Later that day, SBP dropped into the 80?s, and was 70s-90?s all day. She was given more fluids. The next day, Jul 02, BUN/creat were up to 56/2.6. Renal US showed small left kidney, normal-appearing right kidney, w no hydronephrosis. SBP was 80-90s. Jul 03, BUN/creat were up to 74/3.7, potassium up to 5.5, bicarb up to 13, and she was aneuric. BP was down into the 70?s. I was called and we transferred her down to ICU, where she was immed started pressors. On exam, she was alert and oriented, but very anxious. Breathing was normal. Peripheral digits were cold and it was difficult to get a Sat. When we got one, Sat was mid-high 90?s on 2L, up to 100% on 4L. Temp was 97.4 degrees. Heart ra te 100-110, atrial fibrillation. Blood pressure initially 78/36; up to 117/66 on Levophed 0.1 mcg. There was 2 cm jugular venous distension with the head of the bed at about 40 degrees. Chest was clear. Abdomen obese but benign, with no organomegally or gross ascites. At least 2+ anasarca. No infected skin lesions, peripheral IV sites were OK. Labs yesterday were notable for white count 9.0 without a left shift, hemoglobin was 9.7, platelet count 203. PT 21/1.8. D-dimer 2366. Potassium 5.5, bicarb 13, BUN and creatinine 74/3.7, glucose 143, total bili 1.7 (down from 2.3), albumin 3.2, Troponin 7.0. Lactate was 1.6. BNP was 803 TODAY 07/04/[address] Snyder from [place]. We changed her Levaquin to Doxycycline alone. Dr Palafox called [facility] yesterday and requested transfer to their liver transplant team. They have accepted the transfer, but as yet have no beds. They thought they would have a bed in 48 hours. Repeat labs yesterday mostly no significant changes, altho lactic acid savi to 2.3. Overnight last night her pressor requirement increased. She continued to be anuric. A dialysis catheter was put in and she was dialyzed this morning. Her BP tolerated the HD well, but her HR savi into the 120?s-130. Post dialysis this morning, she?s noticeably washed out. Lethargic, but arousable, and still oriented. She was able to tell me the name of her cardiol ogist at [facility]. See Vital Signs below. Heart rate 122, blood pressure 92/60 on Levophed 0.26, and vasopressin 0.04. Breathing easy. Sat mid to high 90s on 4 L oxygen by nasal cannula. Central venous blood gas post dialysis shows 7.23/37/-10. She is afebrile. 1 cm JVD at 40 degrees. Auscultation of the chest shows a few basilar crackles. No murmur or gallops. Abdomen is benign. She has 2+ anasarca. This afternoon apparently the patient had respiratory decompensation requiring high doses of oxygen, her blood pressure also became significantly low with a systolic in the 40s, Dr. Palafox was called in. Patient was placed on a non- rebreather. An A-line was placed for blood pressure monitoring in the right axillary area by me, please see procedure for details. Unfortunately throughout the night patient has had worsening clinical presentation both by physical exam as well as laboratories and became significantly acidotic with the lactic acid continued to be elevated. I had a long discussion with her Anderson Hoffmann who initially made her DNR DNI given that she had expressed this several times to him in the past and given her multiple problems at this point, he does not want her suffering. Given such decompensation the family was called in and the decision to make her [employer] INTERN was made at approximately 3:50 a.m. in the morning. CARDIAC STUDIES EKG showed atrial fibrillation with loss of R-waves across the precordium; could not rule out inferior wall VA. No acute ST changes. ECHOCARDIOGRAM for hemodynamic monitoring done by me: Image quality: Good. Findings: In addition, at the bedside I viewed the full echo done by [facility]. My readin. LV wall thickness is normal. 2. LV cavity size is top normal, or mildly dilated, with marked diffuse LV dysfxn. No clear RWMAs. EF about 30%. 3. RV cavity is mildly enlarged, with prob normal fxn. 4. Severe biatrial enlargement. 5. AoV normal. 6. MV shows trace-1+ MR. 7. TV shows 2+ TR, with 2.3 m/sec jet (21 mm gradient) 8. IVC is dilated and noncontractile. RVSP estimate 36mm. Note: When I put her left subclavian CVL in, the blood return thru the needle was pulsatile, like it was arterial, altho it was dark and only savi to a column of about 12-15 cm thru a length of IV tubing. IMAGING: CXR shows mild chronic lung dz. There are bilat pleural eff, L>R, with a left basilar opacity of unclear significance. Lung Perfusion scan negative. LE duplex scan negative. Chest CT (noncontrast) shows bilat pleural eff, no pneumonia. Abdomen/pelvic noncontrast CT unremarkable. Critical care time used for critical evaluation of this patient, diagnosis, treatment and coordination of care, review her records and documentation TOTAL TIME of care in elaboration of discharge summary, besides any other care provided today or any procedures, was 45 min . Patient's care was discussed in detail with Dr. Palafox. He is aware of all the above as well as the plan of care for this patient. 06/29/20 16:57 Consult to Gastroenterology Routine Consulting Provider: Brandan Muleln Reason for consultation: gi bleed Has provider been notified: No 07/02/20 07:38 Consult to Nephrology Routine Consulting Provider: Phil Arrington Reason for consultation: aysha 07/03/20 07:41 Consult to Critical Care Stat Consulting Provider: Ricky Palafox Reason for consultation: PBC admit for GIB/PNA, persistent hypotension ?HRS 07/03/20 10:05 Consult to Cardiology Stat Consulting Provider: Issac Martin Reason for consultation: refractory hypotension with underlying CMOP Has provider been notified: No DS: Diagnosis Discharge Diagnosis (1) Hypotension: Status: Acute (2) Atrial fibrillation with rapid ventricular response: Status: Acute (3) Acute GI bleeding: Status: Acute (4) Pneumonia: Status: Acute (5) Acute kidney injury: Status: Acute (6) Primary biliary cirrhosis: Status: Acute DS: Medications Discharge Medications Home Medications: Home Medications Medication Instructions Recorded Confirmed albuterol sulfate 90 mcg/actuation 2 puff INHALATION Q6H PRN 04/30/20 06/29/20 aerosol inhaler aspirin 325 mg tablet 325 mg PO DAILY 04/30/20 06/29/20 cyanocobalamin (vitamin B-12) 1,000 mcg IM QMONTH 04/30/20 06/29/20 1,000 mcg/mL injection solution furosemide 20 mg tablet 20 mg PO DAILY 04/30/20 06/29/20 lisinopril 2.5 mg tablet 2.5 mg PO DAILY 04/30/20 06/29/20 metoprolol succinate 100 mg 100 mg PO DAILY 04/30/20 06/29/20 tablet,extended release 24 hr spironolactone 25 mg tablet 50 mg PO DAILY 04/30/20 06/29/20 ursodiol 300 mg capsule 600 mg PO TID 04/30/20 06/29/20 omeprazole 20 mg PO DAILY 06/29/20 06/29/20 paroxetine HCl 1 tab PO QAM 06/29/20 06/29/20 Previous Rx's Medication Instructions Recorded hydroxyzine HCl 25 mg tablet 25 mg PO Q6H PRN 30 Days #120 tab 04/30/20 levothyroxine 175 mcg tablet 175 mcg PO DAILY 30 Days #30 tab 04/30/20 lorazepam 0.5 mg tablet 0.5 mg PO DAILY PRN 15 Days #15 tab 06/18/20 DS: Summary Time Spent with Patient Time attestation: Total time spent providing and/or coordinating discharge services: Discharge coordination time: Greater than 30 minutes Physical Exam Vital Signs: Vital Signs: Last Vital Signs Temp 97.7 F 07/05/20 02:00 Pulse 115 H 07/05/20 03:00 Resp 26 H 07/05/20 03:00 BP 97/54 L 07/05/20 03:00 Pulse Ox 84 L 07/04/20 20:50 Body Mass Index 32.4 DS: Data Data Completed and Pending Labs on day of discharge: Laboratory Tests 06/29/20 06/29/20 06/29/20 11:57 11:57 11:57 WBC 3.0 L RBC 3.14 L Hgb 7.9 L Hct 26.0 L MCV 82.8 MCH 25.2 L MCHC 30.4 L RDW 15.4 Plt Count 73 L MPV 10.1 Immature Gran % (Auto) 0.3 Neut % (Auto) 64.1 Lymph % (Auto) 20.2 [place] % (Auto) 10.1 Eos % (Auto) 4.0 Baso % (Auto) 1.3 Lymph # (Auto) 0.[address] [place] # (Auto) 0.3 Eos # (Auto) 0.1 Baso # (Auto) 0.0 Abs Immat Gran (auto) 0.01 Absolute Neuts (auto) 1.9 L Absolute Nucleated RBC 0.000 Nucleated RBC % (auto) 0.0 Smear Tech's Comments VERIFIED PT INR D-Dimer ABG pH ABG pCO2 ABG pO2 ABG HCO3 ABG O2 Saturation ABG Base Excess VBG pH VBG pCO2 VBG pO2 VBG HCO3 VBG O2 Saturation VBG Base Excess Oxygen Given Sodium 137 Potassium 3.9 Chloride 105 Carbon Dioxide 23 Anion Gap 13 BUN 21 H Creatinine 0.92 Estim Creat Clear Calc 63.0 Estimated GFR > 60 POC Glucose Random Glucose 127 H Lactic Acid Lactic Acid Fup @ 2Hr Lactic Acid Fup @ 4Hr Calcium 8.1 L Phosphorus Magnesium Total Bilirubin Direct Bilirubin AST ALT Alkaline Phosphatase Ammonia Troponin I High Sens C-Reactive Protein B-Natriuretic Peptide Total Protein Albumin Procalcitonin Urine Color Urine Appearance Urine pH Ur Specific [place] Urine Protein Urine Glucose (UA) Urine Ketones Urine Blood Urine Nitrite Ur Leukocyte Esterase Urine RBC Urine WBC Ur Squamous Epith Cells Urine Bacteria Ur Random Sodium Urine Creatinine Peritoneal WBC Peritoneal RBC Periton Neutrophils [place] Lymphocytes Peritoneal Monocytes Peritoneal Eosinophils Peritoneal Basophils Peritoneal Other Cells Peritoneal Tot Protein Peritoneal LDH Peritoneal Glucose Stool Occult Blood Proteinase 3 (PR3) Ab Myeloperoxidase Ab Complement C3 Complement C4 Respiratory Panel [place] Adenovirus (Rapid PCR) B.pert (TEM-PCR) B.parapertussis DNA PCR C. pneumoniae DNA (PCR) Coronavirus OC43 (PCR) Coronavirus HKU1 (PCR) Coronavirus 229E (PCR) COVID-19 (MARISA) Negative COVID-19 Clin Com See Note Coronavirus NL63 (PCR) Human Metapneumovir PCR Influenza A (RT-PCR) Influenza B (RT-PCR) Ur L.pneumophila Ag M. pneumoniae (PCR) Parainfluenza 1 (PCR) Parainfluenza 2 (PCR) Parainfluenza 3 (PCR) Parainfluenza 4 (PCR) RSV (PCR) Entero/Rhino (PCR) SARS-CoV-2 RNA (RT-PCR) SARS-CoV-2 IgG Ab Blood Type Antibody Screen Crossmatch 06/29/20 06/29/20 06/29/20 14:02 14:58 17:36 WBC RBC Hgb Hct MCV MCH MCHC RDW Plt Count MPV Immature Gran % (Auto) Neut % (Auto) Lymph % (Auto) [place] % (Auto) Eos % (Auto) Baso % (Auto) Lymph # (Auto) [place] # (Auto) Eos # (Auto) Baso # (Auto) Abs Immat Gran (auto) Absolute Neuts (auto) Absolute Nucleated RBC Nucleated RBC % (auto) Smear Tech's Comments PT INR D-Dimer ABG pH ABG pCO2 ABG pO2 ABG HCO3 ABG O2 Saturation ABG Base Excess VBG pH VBG pCO2 VBG pO2 VBG HCO3 VBG O2 Saturation VBG Base Excess Oxygen Given Sodium Potassium Chloride Carbon Dioxide Anion Gap BUN Creatinine Estim Creat Clear Calc Estimated GFR POC Glucose Random Glucose Lactic Acid 1.2 Lactic Acid Fup @ 2Hr Lactic Acid Fup @ 4Hr Calcium Phosphorus Magnesium Total Bilirubin Direct Bilirubin AST ALT Alkaline Phosphatase Ammonia Troponin I High Sens C-Reactive Protein B-Natriuretic Peptide Total Protein Albumin Procalcitonin Urine Color Urine Appearance Urine pH Ur Specific [place] Urine Protein Urine Glucose (UA) Urine Ketones Urine Blood Urine Nitrite Ur Leukocyte Esterase Urine RBC Urine WBC Ur Squamous Epith Cells Urine Bacteria Ur Random Sodium Urine Creatinine Peritoneal WBC Peritoneal RBC Periton Neutrophils Periton Lymphocytes Peritoneal Monocytes Peritoneal Eosinophils Peritoneal Basophils Peritoneal Other Cells Peritoneal Tot Protein Peritoneal LDH Peritoneal Glucose Stool Occult Blood POS Proteinase 3 (PR3) Ab Myeloperoxidase Ab Complement C3 Complement C4 Respiratory Panel [place] Adenovirus (Rapid PCR) B.pert (TEM-PCR) B.parapertussis DNA PCR C. pneumoniae DNA (PCR) Coronavirus OC43 (PCR) Coronavirus HKU1 (PCR) Coronavirus 229E (PCR) COVID-19 (MARISA) COVID-19 Clin Com Coronavirus NL63 (PCR) Human Metapneumovir PCR Influenza A (RT-PCR) Influenza B (RT-PCR) Ur L.pneumophila Ag M. pneumoniae (PCR) Parainfluenza 1 (PCR) Parainfluenza 2 (PCR) Parainfluenza 3 (PCR) Parainfluenza 4 (PCR) RSV (PCR) Entero/Rhino (PCR) SARS-CoV-2 RNA (RT-PCR) SARS-CoV-2 IgG Ab Blood Type A Positive Antibody Screen NEGATIVE Crossmatch See Detail 06/29/20 06/29/20 06/30/20 18:03 21:00 09:31 WBC RBC Hgb Hct MCV MCH MCHC RDW Plt Count MPV Immature Gran % (Auto) Neut % (Auto) Lymph % (Auto) [place] % (Auto) Eos % (Auto) Baso % (Auto) Lymph # (Auto) [place] # (Auto) Eos # (Auto) Baso # (Auto) Abs Immat Gran (auto) Absolute Neuts (auto) Absolute Nucleated RBC Nucleated RBC % (auto) Smear Tech's Comments PT INR D-Dimer ABG pH ABG pCO2 ABG pO2 ABG HCO3 ABG O2 Saturation ABG Base Excess VBG pH VBG pCO2 VBG pO2 VBG HCO3 VBG O2 Saturation VBG Base Excess Oxygen Given Sodium 136 Potassium 3.9 Chloride 105 Carbon Dioxide 24 Anion Gap 11 L BUN 27 H Creatinine 0.95 Estim Creat Clear Calc 61.0 Estimated GFR 59 POC Glucose 122 H 131 H Random Glucose 133 H Lactic Acid Lactic Acid Fup @ 2Hr Lactic Acid Fup @ 4Hr Calcium 8.0 L Phosphorus Magnesium Total Bilirubin Direct Bilirubin AST ALT Alkaline Phosphatase Ammonia Troponin I High Sens C-Reactive Protein B-Natriuretic Peptide Total Protein Albumin Procalcitonin Urine Color Urine Appearance Urine pH Ur Specific [place] Urine Protein Urine Glucose (UA) Urine Ketones Urine Blood Urine Nitrite Ur Leukocyte Esterase Urine RBC Urine WBC Ur Squamous Epith Cells Urine Bacteria Ur Random Sodium Urine Creatinine Peritoneal WBC Peritoneal RBC Periton Neutrophils Periton Lymphocytes Peritoneal Monocytes Peritoneal Eosinophils Peritoneal Basophils Peritoneal Other Cells Peritoneal Tot Protein Peritoneal LDH Peritoneal Glucose Stool Occult Blood Proteinase 3 (PR3) Ab Myeloperoxidase Ab Complement C3 Complement C4 Respiratory Panel [place] Adenovirus (Rapid PCR) B.pert (TEM-PCR) B.parapertussis DNA PCR C. pneumoniae DNA (PCR) Coronavirus OC43 (PCR) Coronavirus HKU1 (PCR) Coronavirus 229E (PCR) COVID-19 (MARISA) COVID-19 Clin Com Coronavirus NL63 (PCR) Human Metapneumovir PCR Influenza A (RT-PCR) Influenza B (RT-PCR) Ur L.pneumophila Ag M. pneumoniae (PCR) Parainfluenza 1 (PCR) Parainfluenza 2 (PCR) Parainfluenza 3 (PCR) Parainfluenza 4 (PCR) RSV (PCR) Entero/Rhino (PCR) SARS-CoV-2 RNA (RT-PCR) SARS-CoV-2 IgG Ab Blood Type Antibody Screen Crossmatch 06/30/20 06/30/20 06/30/20 09:31 09:31 09:31 WBC 4.9 RBC 3.59 L Hgb 9.2 L Hct 29.9 L MCV 83.3 MCH 25.6 L MCHC 30.8 L RDW 15.6 Plt Count 98 L D MPV 9.9 Immature Gran % (Auto) 0.4 Neut % (Auto) 66.9 Lymph % (Auto) 17.[address] [place] % (Auto) 10.5 Eos % (Auto) 3.5 Baso % (Auto) 1.0 Lymph # (Auto) 0.[address] [place] # (Auto) 0.5 Eos # (Auto) 0.2 Baso # (Auto) 0.1 Abs Immat Gran (auto) 0.02 Absolute Neuts (auto) 3.3 Absolute Nucleated RBC 0.000 Nucleated RBC % (auto) 0.0 Smear Tech's Comments PT INR D-Dimer ABG pH ABG pCO2 ABG pO2 ABG HCO3 ABG O2 Saturation ABG Base Excess VBG pH VBG pCO2 VBG pO2 VBG HCO3 VBG O2 Saturation VBG Base Excess Oxygen Given Sodium Potassium Chloride Carbon Dioxide Anion Gap BUN Creatinine Estim Creat Clear Calc Estimated GFR POC Glucose Random Glucose Lactic Acid Lactic Acid Fup @ 2Hr Lactic Acid Fup @ 4Hr Calcium Phosphorus Magnesium Total Bilirubin Direct Bilirubin AST ALT Alkaline Phosphatase Ammonia Troponin I High Sens C-Reactive Protein B-Natriuretic Peptide Total Protein Albumin Procalcitonin 0.05 Urine Color Urine Appearance Urine pH Ur Specific [place] Urine Protein Urine Glucose (UA) Urine Ketones Urine Blood Urine Nitrite Ur Leukocyte Esterase Urine RBC Urine WBC Ur Squamous Epith Cells Urine Bacteria Ur Random Sodium Urine Creatinine Peritoneal WBC Peritoneal RBC Periton Neutrophils Periton Lymphocytes Peritoneal Monocytes Peritoneal Eosinophils Peritoneal Basophils Peritoneal Other Cells Peritoneal Tot Protein Peritoneal LDH Peritoneal Glucose Stool Occult Blood Proteinase 3 (PR3) Ab Myeloperoxidase Ab Complement C3 Complement C4 Respiratory Panel [place] Adenovirus (Rapid PCR) B.pert (TEM-PCR) B.parapertussis DNA PCR C. pneumoniae DNA (PCR) Coronavirus OC43 (PCR) Coronavirus HKU1 (PCR) Coronavirus 229E (PCR) COVID-19 (MARISA) COVID-19 Clin Com Coronavirus NL63 (PCR) Human Metapneumovir PCR Influenza A (RT-PCR) Influenza B (RT-PCR) Ur L.pneumophila Ag M. pneumoniae (PCR) Parainfluenza 1 (PCR) Parainfluenza 2 (PCR) Parainfluenza 3 (PCR) Parainfluenza 4 (PCR) RSV (PCR) Entero/Rhino (PCR) SARS-CoV-2 RNA (RT-PCR) SARS-CoV-2 IgG Ab Negative Blood Type Antibody Screen Crossmatch 06/30/20 06/30/20 06/30/20 11:46 12:19 20:43 WBC 6.7 RBC 3.86 L Hgb 9.8 L Hct 31.9 L MCV 82.6 MCH 25.4 L MCHC 30.7 L RDW 15.6 Plt Count 126 L D MPV 10.2 Immature Gran % (Auto) 0.3 Neut % (Auto) 61.3 Lymph % (Auto) 23.2 [place] % (Auto) 9.8 Eos % (Auto) 3.9 Baso % (Auto) 1.5 Lymph # (Auto) 1.6 [place] # (Auto) 0.7 Eos # (Auto) 0.3 Baso # (Auto) 0.1 Abs Immat Gran (auto) 0.02 Absolute Neuts (auto) 4.1 Absolute Nucleated RBC 0.000 Nucleated RBC % (auto) 0.0 Smear Tech's Comments PT INR D-Dimer ABG pH ABG pCO2 ABG pO2 ABG HCO3 ABG O2 Saturation ABG Base Excess VBG pH VBG pCO2 VBG pO2 VBG HCO3 VBG O2 Saturation VBG Base Excess Oxygen Given Sodium Potassium Chloride Carbon Dioxide Anion Gap BUN Creatinine Estim Creat Clear Calc Estimated GFR POC Glucose 119 H 138 H Random Glucose Lactic Acid Lactic Acid Fup @ 2Hr Lactic Acid Fup @ 4Hr Calcium Phosphorus Magnesium Total Bilirubin Direct Bilirubin AST ALT Alkaline Phosphatase Ammonia Troponin I High Sens C-Reactive Protein B-Natriuretic Peptide Total Protein Albumin Procalcitonin Urine Color Urine Appearance Urine pH Ur Specific [place] Urine Protein Urine Glucose (UA) Urine Ketones Urine Blood Urine Nitrite Ur Leukocyte Esterase Urine RBC Urine WBC Ur Squamous Epith Cells Urine Bacteria Ur Random Sodium Urine Creatinine Peritoneal WBC Peritoneal RBC Periton Neutrophils Periton Lymphocytes Peritoneal Monocytes Peritoneal Eosinophils Peritoneal Basophils Peritoneal Other Cells Peritoneal Tot Protein Peritoneal LDH Peritoneal Glucose Stool Occult Blood Proteinase 3 (PR3) Ab Myeloperoxidase Ab Complement C3 Complement C4 Respiratory Panel [place] Adenovirus (Rapid PCR) B.pert (TEM-PCR) B.parapertussis DNA PCR C. pneumoniae DNA (PCR) Coronavirus OC43 (PCR) Coronavirus HKU1 (PCR) Coronavirus 229E (PCR) COVID-19 ([facility]) COVID-19 Clin Com Coronavirus NL63 (PCR) Human Metapneumovir PCR Influenza A (RT-PCR) Influenza B (RT-PCR) Ur L.pneumophila Ag M. pneumoniae (PCR) Parainfluenza 1 (PCR) Parainfluenza 2 (PCR) Parainfluenza 3 (PCR) Parainfluenza 4 (PCR) RSV (PCR) Entero/Rhino (PCR) SARS-CoV-2 RNA (RT-PCR) SARS-CoV-2 IgG Ab Blood Type Antibody Screen Crossmatch 07/01/20 07/01/20 07/01/20 06:02 06:02 06:02 WBC 7.4 RBC 3.68 L Hgb 9.2 L Hct 31.3 L MCV 85.1 MCH 25.0 L MCHC 29.4 L RDW 16.0 Plt Count 134 L MPV 10.3 Immature Gran % (Auto) 0.5 H Neut % (Auto) 75.3 H Lymph % (Auto) 13.[address] [place] % (Auto) 10.8 Eos % (Auto) 0.0 Baso % (Auto) 0.3 Lymph # (Auto) 1.[address] [place] # (Auto) 0.8 Eos # (Auto) 0.0 Baso # (Auto) 0.0 Abs Immat Gran (auto) 0.04 H Absolute Neuts (auto) 5.6 Absolute Nucleated RBC 0.000 Nucleated RBC % (auto) 0.0 Smear Tech's Comments PT 17.9 H INR 1.5 H D-Dimer ABG pH ABG pCO2 ABG pO2 ABG HCO3 ABG O2 Saturation ABG Base Excess VBG pH VBG pCO2 VBG pO2 VBG HCO3 VBG O2 Saturation VBG Base Excess Oxygen Given Sodium 134 L Potassium 4.7 D Chloride 102 Carbon Dioxide 22 Anion Gap 15 BUN 41 H D Creatinine 1.55 H Estim Creat Clear Calc 37.4 Estimated GFR 34 POC Glucose Random Glucose 114 Lactic Acid Lactic Acid Fup @ 2Hr Lactic Acid Fup @ 4Hr Calcium 8.1 L Phosphorus Magnesium Total Bilirubin 2.3 H Direct Bilirubin AST 44 H ALT 27 Alkaline Phosphatase 73 Ammonia Troponin I High Sens C-Reactive Protein B-Natriuretic Peptide Total Protein 7.5 Albumin 3.2 L Procalcitonin Urine Color Urine Appearance Urine pH Ur Specific [place] Urine Protein Urine Glucose (UA) Urine Ketones Urine Blood Urine Nitrite Ur Leukocyte Esterase Urine RBC Urine WBC Ur Squamous Epith Cells Urine Bacteria Ur Random Sodium Urine Creatinine Peritoneal WBC Peritoneal RBC Periton Neutrophils Periton Lymphocytes Peritoneal Monocytes Peritoneal Eosinophils Peritoneal Basophils Peritoneal Other Cells Peritoneal Tot Protein Peritoneal LDH Peritoneal Glucose Stool Occult Blood Proteinase 3 (PR3) Ab Myeloperoxidase Ab Complement C3 Complement C4 Respiratory Panel [place] Adenovirus (Rapid PCR) B.pert (TEM-PCR) B.parapertussis DNA PCR C. pneumoniae DNA (PCR) Coronavirus OC43 (PCR) Coronavirus HKU1 (PCR) Coronavirus 229E (PCR) COVID-19 ([facility]) COVID-19 Clin Com Coronavirus NL63 (PCR) Human Metapneumovir PCR Influenza A (RT-PCR) Influenza B (RT-PCR) Ur L.pneumophila Ag M. pneumoniae (PCR) Parainfluenza 1 (PCR) Parainfluenza 2 (PCR) Parainfluenza 3 (PCR) Parainfluenza 4 (PCR) RSV (PCR) Entero/Rhino (PCR) SARS-CoV-2 RNA (RT-PCR) SARS-CoV-2 IgG Ab Blood Type Antibody Screen Crossmatch 07/01/20 07/01/20 07/01/20 07:14 09:30 12:30 WBC RBC Hgb Hct MCV MCH MCHC RDW Plt Count MPV Immature Gran % (Auto) Neut % (Auto) Lymph % (Auto) [place] % (Auto) Eos % (Auto) Baso % (Auto) Lymph # (Auto) [place] # (Auto) Eos # (Auto) Baso # (Auto) Abs Immat Gran (auto) Absolute Neuts (auto) Absolute Nucleated RBC Nucleated RBC % (auto) Smear Tech's Comments PT INR D-Dimer ABG pH ABG pCO2 ABG pO2 ABG HCO3 ABG O2 Saturation ABG Base Excess VBG pH VBG pCO2 VBG pO2 VBG HCO3 VBG O2 Saturation VBG Base Excess Oxygen Given Sodium Potassium Chloride Carbon Dioxide Anion Gap BUN Creatinine Estim Creat Clear Calc Estimated GFR POC Glucose 112 134 H Random Glucose Lactic Acid Lactic Acid Fup @ 2Hr Lactic Acid Fup @ 4Hr Calcium Phosphorus Magnesium Total Bilirubin Direct Bilirubin AST ALT Alkaline Phosphatase Ammonia Troponin I High Sens C-Reactive Protein B-Natriuretic Peptide Total Protein Albumin Procalcitonin Urine Color Urine Appearance Urine pH Ur Specific [place] Urine Protein Urine Glucose (UA) Urine Ketones Urine Blood Urine Nitrite Ur Leukocyte Esterase Urine RBC Urine WBC Ur Squamous Epith Cells Urine Bacteria Ur Random Sodium Urine Creatinine Peritoneal WBC Peritoneal RBC Periton Neutrophils [place] Lymphocytes Peritoneal Monocytes Peritoneal Eosinophils Peritoneal Basophils Peritoneal Other Cells Peritoneal Tot Protein Peritoneal LDH Peritoneal Glucose Stool Occult Blood Proteinase 3 (PR3) Ab Myeloperoxidase Ab Complement C3 Complement C4 Respiratory Panel [place] See Note Adenovirus (Rapid PCR) Not Detected B.pert (TEM-PCR) Not Detected B.parapertussis DNA PCR Not Detected C. pneumoniae DNA (PCR) Not Detected Coronavirus OC43 (PCR) Not Detected Coronavirus HKU1 (PCR) Not Detected Coronavirus 229E (PCR) Not Detected COVID-19 ([facility]) COVID-19 Clin Com Coronavirus NL63 (PCR) Not Detected Human Metapneumovir PCR Not Detected Influenza A (RT-PCR) Not Detected Influenza B (RT-PCR) Not Detected Ur L.pneumophila Ag M. pneumoniae (PCR) Not Detected Parainfluenza 1 (PCR) Not Detected Parainfluenza 2 (PCR) Not Detected Parainfluenza 3 (PCR) Not Detected Parainfluenza 4 (PCR) Not Detected RSV (PCR) Not Detected Entero/Rhino (PCR) Not Detected SARS-CoV-2 RNA (RT-PCR) Not Detected SARS-CoV-2 IgG Ab Blood Type Antibody Screen Crossmatch 07/01/20 07/01/20 07/01/20 16:16 16:41 20:18 WBC RBC Hgb 9.2 L Hct 30.5 L MCV MCH MCHC RDW Plt Count MPV Immature Gran % (Auto) Neut % (Auto) Lymph % (Auto) [place] % (Auto) Eos % (Auto) Baso % (Auto) Lymph # (Auto) [place] # (Auto) Eos # (Auto) Baso # (Auto) Abs Immat Gran (auto) Absolute Neuts (auto) Absolute Nucleated RBC Nucleated RBC % (auto) Smear Tech's Comments PT INR D-Dimer ABG pH ABG pCO2 ABG pO2 ABG HCO3 ABG O2 Saturation ABG Base Excess VBG pH VBG pCO2 VBG pO2 VBG HCO3 VBG O2 Saturation VBG Base Excess Oxygen Given Sodium Potassium Chloride Carbon Dioxide Anion Gap BUN Creatinine Estim Creat Clear Calc Estimated GFR POC Glucose 130 H 129 H Random Glucose Lactic Acid Lactic Acid Fup @ 2Hr Lactic Acid Fup @ 4Hr Calcium Phosphorus Magnesium Total Bilirubin Direct Bilirubin AST ALT Alkaline Phosphatase Ammonia Troponin I High Sens C-Reactive Protein B-Natriuretic Peptide Total Protein Albumin Procalcitonin Urine Color Urine Appearance Urine pH Ur Specific [place] Urine Protein Urine Glucose (UA) Urine Ketones Urine Blood Urine Nitrite Ur Leukocyte Esterase Urine RBC Urine WBC Ur Squamous Epith Cells Urine Bacteria Ur Random Sodium Urine Creatinine Peritoneal WBC Peritoneal RBC Periton Neutrophils [place] Lymphocytes Peritoneal Monocytes Peritoneal Eosinophils Peritoneal Basophils Peritoneal Other Cells Peritoneal Tot Protein Peritoneal LDH Peritoneal Glucose Stool Occult Blood Proteinase 3 (PR3) Ab Myeloperoxidase Ab Complement C3 Complement C4 Respiratory Panel [place] Adenovirus (Rapid PCR) B.pert (TEM-PCR) B.parapertussis DNA PCR C. pneumoniae DNA (PCR) Coronavirus OC43 (PCR) Coronavirus HKU1 (PCR) Coronavirus 229E (PCR) COVID-19 ([facility]) COVID-19 Clin Com Coronavirus NL63 (PCR) Human Metapneumovir PCR Influenza A (RT-PCR) Influenza B (RT-PCR) Ur L.pneumophila Ag M. pneumoniae (PCR) Parainfluenza 1 (PCR) Parainfluenza 2 (PCR) Parainfluenza 3 (PCR) Parainfluenza 4 (PCR) RSV (PCR) Entero/Rhino (PCR) SARS-CoV-2 RNA (RT-PCR) SARS-CoV-2 IgG Ab Blood Type Antibody Screen Crossmatch 07/01/20 07/02/20 07/02/20 Unknown 06:13 06:13 WBC 8.1 RBC 3.72 L Hgb 9.4 L Hct 32.0 L MCV 86.0 MCH 25.3 L MCHC 29.4 L RDW 16.2 H Plt Count 179 D MPV 10.5 Immature Gran % (Auto) 0.5 H Neut % (Auto) 75.8 H Lymph % (Auto) 11.[address] [place] % (Auto) 11.9 H Eos % (Auto) 0.1 Baso % (Auto) 0.2 Lymph # (Auto) 0.[address] [place] # (Auto) 1.0 Eos # (Auto) 0.0 Baso # (Auto) 0.0 Abs Immat Gran (auto) 0.04 H Absolute Neuts (auto) 6.2 Absolute Nucleated RBC 0.000 Nucleated RBC % (auto) 0.0 Smear Tech's Comments PT INR D-Dimer ABG pH ABG pCO2 ABG pO2 ABG HCO3 ABG O2 Saturation ABG Base Excess VBG pH VBG pCO2 VBG pO2 VBG HCO3 VBG O2 Saturation VBG Base Excess Oxygen Given Sodium 132 L Potassium 5.1 Chloride 102 Carbon Dioxide 18 L Anion Gap 17 BUN 56 H Creatinine 2.69 H Estim Creat Clear Calc 21.5 Estimated GFR 18 POC Glucose Random Glucose 130 H Lactic Acid Lactic Acid Fup @ 2Hr Lactic Acid Fup @ 4Hr Calcium 7.6 L D Phosphorus Magnesium Total Bilirubin Direct Bilirubin AST ALT Alkaline Phosphatase Ammonia Troponin I High Sens C-Reactive Protein B-Natriuretic Peptide Total Protein Albumin Procalcitonin Urine Color Urine Appearance Urine pH Ur Specific [place] Urine Protein Urine Glucose (UA) Urine Ketones Urine Blood Urine Nitrite Ur Leukocyte Esterase Urine RBC Urine WBC Ur Squamous Epith Cells Urine Bacteria Ur Random Sodium Urine Creatinine Peritoneal WBC Peritoneal RBC Periton Neutrophils [place] Lymphocytes Peritoneal Monocytes Peritoneal Eosinophils Peritoneal Basophils Peritoneal Other Cells Peritoneal Tot Protein Peritoneal LDH Peritoneal Glucose Stool Occult Blood Proteinase 3 (PR3) Ab Myeloperoxidase Ab Complement C3 Complement C4 Respiratory Panel [place] Adenovirus (Rapid PCR) B.pert (TEM-PCR) B.parapertussis DNA PCR C. pneumoniae DNA (PCR) Coronavirus OC43 (PCR) Coronavirus HKU1 (PCR) Coronavirus 229E (PCR) COVID-19 ([facility]) COVID-19 Clin Com Coronavirus NL63 (PCR) Human Metapneumovir PCR Influenza A (RT-PCR) Influenza B (RT-PCR) Ur L.pneumophila Ag Not Detected M. pneumoniae (PCR) Parainfluenza 1 (PCR) Parainfluenza 2 (PCR) Parainfluenza 3 (PCR) Parainfluenza 4 (PCR) RSV (PCR) Entero/Rhino (PCR) SARS-CoV-2 RNA (RT-PCR) SARS-CoV-2 IgG Ab Blood Type Antibody Screen Crossmatch 07/02/20 07/02/20 07/02/20 06:13 07:33 11:21 WBC RBC Hgb Hct MCV MCH MCHC RDW Plt Count MPV Immature Gran % (Auto) Neut % (Auto) Lymph % (Auto) [place] % (Auto) Eos % (Auto) Baso % (Auto) Lymph # (Auto) [place] # (Auto) Eos # (Auto) Baso # (Auto) Abs Immat Gran (auto) Absolute Neuts (auto) Absolute Nucleated RBC Nucleated RBC % (auto) Smear Tech's Comments PT INR D-Dimer ABG pH ABG pCO2 ABG pO2 ABG HCO3 ABG O2 Saturation ABG Base Excess VBG pH VBG pCO2 VBG pO2 VBG HCO3 VBG O2 Saturation VBG Base Excess Oxygen Given Sodium Potassium Chloride Carbon Dioxide Anion Gap BUN Creatinine Estim Creat Clear Calc Estimated GFR POC Glucose 133 H 136 H Random Glucose Lactic Acid Lactic Acid Fup @ 2Hr Lactic Acid Fup @ 4Hr Calcium Phosphorus Magnesium Total Bilirubin Direct Bilirubin AST ALT Alkaline Phosphatase Ammonia Troponin I High Sens C-Reactive Protein B-Natriuretic Peptide Total Protein Albumin Procalcitonin 0.09 Urine Color Urine Appearance Urine pH Ur Specific [place] Urine Protein Urine Glucose (UA) Urine Ketones Urine Blood Urine Nitrite Ur Leukocyte Esterase Urine RBC Urine WBC Ur Squamous Epith Cells Urine Bacteria Ur Random Sodium Urine Creatinine Peritoneal WBC Peritoneal RBC Periton Neutrophils [place] Lymphocytes Peritoneal Monocytes Peritoneal Eosinophils Peritoneal Basophils Peritoneal Other Cells Peritoneal Tot Protein Peritoneal LDH Peritoneal Glucose Stool Occult Blood Proteinase 3 (PR3) Ab Myeloperoxidase Ab Complement C3 Complement C4 Respiratory Panel [place] Adenovirus (Rapid PCR) B.pert (TEM-PCR) B.parapertussis DNA PCR C. pneumoniae DNA (PCR) Coronavirus OC43 (PCR) Coronavirus HKU1 (PCR) Coronavirus 229E (PCR) COVID-19 ([facility]) COVID-19 Clin Com Coronavirus NL63 (PCR) Human Metapneumovir PCR Influenza A (RT-PCR) Influenza B (RT-PCR) Ur L.pneumophila Ag M. pneumoniae (PCR) Parainfluenza 1 (PCR) Parainfluenza 2 (PCR) Parainfluenza 3 (PCR) Parainfluenza 4 (PCR) RSV (PCR) Entero/Rhino (PCR) SARS-CoV-2 RNA (RT-PCR) SARS-CoV-2 IgG Ab Blood Type Antibody Screen Crossmatch 07/02/20 07/02/20 07/03/20 16:34 20:20 00:04 WBC RBC Hgb Hct MCV MCH MCHC RDW Plt Count MPV Immature Gran % (Auto) Neut % (Auto) Lymph % (Auto) [place] % (Auto) Eos % (Auto) Baso % (Auto) Lymph # (Auto) [place] # (Auto) Eos # (Auto) Baso # (Auto) Abs Immat Gran (auto) Absolute Neuts (auto) Absolute Nucleated RBC Nucleated RBC % (auto) Smear Tech's Comments PT INR D-Dimer ABG pH ABG pCO2 ABG pO2 ABG HCO3 ABG O2 Saturation ABG Base Excess VBG pH VBG pCO2 VBG pO2 VBG HCO3 VBG O2 Saturation VBG Base Excess Oxygen Given Sodium Potassium Chloride Carbon Dioxide Anion Gap BUN Creatinine Estim Creat Clear Calc Estimated GFR POC Glucose 147 H 134 H Random Glucose Lactic Acid Lactic Acid Fup @ 2Hr Lactic Acid Fup @ 4Hr Calcium Phosphorus Magnesium Total Bilirubin Direct Bilirubin AST ALT Alkaline Phosphatase Ammonia Troponin I High Sens C-Reactive Protein B-Natriuretic Peptide Total Protein Albumin Procalcitonin Urine Color Urine Appearance Urine pH Ur Specific [place] Urine Protein Urine Glucose (UA) Urine Ketones Urine Blood Urine Nitrite Ur Leukocyte Esterase Urine RBC Urine WBC Ur Squamous Epith Cells Urine Bacteria Ur Random Sodium 118.0 Urine Creatinine 39.46 Peritoneal WBC Peritoneal RBC Periton Neutrophils Per[place] Lymphocytes Peritoneal Monocytes Peritoneal Eosinophils Peritoneal Basophils Peritoneal Other Cells Peritoneal Tot Protein Peritoneal LDH Peritoneal Glucose Stool Occult Blood Proteinase 3 (PR3) Ab Myeloperoxidase Ab Complement C3 Complement C4 Respiratory Panel [place] Adenovirus (Rapid PCR) B.pert (TEM-PCR) B.parapertussis DNA PCR C. pneumoniae DNA (PCR) Coronavirus OC43 (PCR) Coronavirus HKU1 (PCR) Coronavirus 229E (PCR) COVID-19 ([facility]) COVID-19 Clin Com Coronavirus NL63 (PCR) Human Metapneumovir PCR Influenza A (RT-PCR) Influenza B (RT-PCR) Ur L.pneumophila Ag M. pneumoniae (PCR) Parainfluenza 1 (PCR) Parainfluenza 2 (PCR) Parainfluenza 3 (PCR) Parainfluenza 4 (PCR) RSV (PCR) Entero/Rhino (PCR) SARS-CoV-2 RNA (RT-PCR) SARS-CoV-2 IgG Ab Blood Type Antibody Screen Crossmatch 07/03/20 07/03/20 07/03/20 05:57 05:57 05:57 WBC 9.0 RBC 3.78 L Hgb 9.7 L Hct 32.9 L MCV 87.0 MCH 25.7 L MCHC 29.5 L RDW 16.6 H Plt Count 203 MPV 10.0 Immature Gran % (Auto) 0.6 H Neut % (Auto) 78.2 H Lymph % (Auto) 10.[address] [place] % (Auto) 10.3 Eos % (Auto) 0.1 Baso % (Auto) 0.1 Lymph # (Auto) 1.[address] [place] # (Auto) 0.9 Eos # (Auto) 0.0 Baso # (Auto) 0.0 Abs Immat Gran (auto) 0.05 H Absolute Neuts (auto) 7.0 Absolute Nucleated RBC 0.000 Nucleated RBC % (auto) 0.0 Smear Tech's Comments PT INR D-Dimer ABG pH ABG pCO2 ABG pO2 ABG HCO3 ABG O2 Saturation ABG Base Excess VBG pH VBG pCO2 VBG pO2 VBG HCO3 VBG O2 Saturation VBG Base Excess Oxygen Given Sodium 130 L Potassium 5.5 H Chloride 103 Carbon Dioxide 13 L Anion Gap 20 BUN 74 H Creatinine 3.70 H Estim Creat Clear Calc 15.6 Estimated GFR 12 POC Glucose Random Glucose 143 H Lactic Acid Lactic Acid Fup @ 2Hr Lactic Acid Fup @ 4Hr Calcium 7.4 L Phosphorus Magnesium Total Bilirubin 1.7 H Direct Bilirubin 1.4 H AST 33 H ALT 24 Alkaline Phosphatase 70 Ammonia Troponin I High Sens C-Reactive Protein B-Natriuretic Peptide Total Protein 7.4 Albumin 3.2 L Procalcitonin Urine Color Urine Appearance Urine pH Ur Specific [place] Urine Protein Urine Glucose (UA) Urine Ketones Urine Blood Urine Nitrite Ur Leukocyte Esterase Urine RBC Urine WBC Ur Squamous Epith Cells Urine Bacteria Ur Random Sodium Urine Creatinine Peritoneal WBC Peritoneal RBC Periton Neutrophils [place] Lymphocytes Peritoneal Monocytes Peritoneal Eosinophils Peritoneal Basophils Peritoneal Other Cells Peritoneal Tot Protein Peritoneal LDH Peritoneal Glucose Stool Occult Blood Proteinase 3 (PR3) Ab <1.0 Myeloperoxidase Ab <1.0 Complement C3 Complement C4 Respiratory Panel [place] Adenovirus (Rapid PCR) B.pert (TEM-PCR) B.parapertussis DNA PCR C. pneumoniae DNA (PCR) Coronavirus OC43 (PCR) Coronavirus HKU1 (PCR) Coronavirus 229E (PCR) COVID-19 ([facility]) COVID-19 Clin Com Coronavirus NL63 (PCR) Human Metapneumovir PCR Influenza A (RT-PCR) Influenza B (RT-PCR) Ur L.pneumophila Ag M. pneumoniae (PCR) Parainfluenza 1 (PCR) Parainfluenza 2 (PCR) Parainfluenza 3 (PCR) Parainfluenza 4 (PCR) RSV (PCR) Entero/Rhino (PCR) SARS-CoV-2 RNA (RT-PCR) SARS-CoV-2 IgG Ab Blood Type Antibody Screen Crossmatch 07/03/20 07/03/20 07/03/20 05:57 07:40 07:45 WBC RBC Hgb Hct MCV MCH MCHC RDW Plt Count MPV Immature Gran % (Auto) Neut % (Auto) Lymph % (Auto) [place] % (Auto) Eos % (Auto) Baso % (Auto) Lymph # (Auto) [place] # (Auto) Eos # (Auto) Baso # (Auto) Abs Immat Gran (auto) Absolute Neuts (auto) Absolute Nucleated RBC Nucleated RBC % (auto) Smear Tech's Comments PT INR D-Dimer ABG pH ABG pCO2 ABG pO2 ABG HCO3 ABG O2 Saturation ABG Base Excess VBG pH VBG pCO2 VBG pO2 VBG HCO3 VBG O2 Saturation VBG Base Excess Oxygen Given Sodium Potassium Chloride Carbon Dioxide Anion Gap BUN Creatinine Estim Creat Clear Calc Estimated GFR POC Glucose 137 H Random Glucose Lactic Acid 1.6 Lactic Acid Fup @ 2Hr Lactic Acid Fup @ 4Hr Calcium Phosphorus Magnesium Total Bilirubin Direct Bilirubin AST ALT Alkaline Phosphatase Ammonia Troponin I High Sens 7.0 C-Reactive Protein B-Natriuretic Peptide Cancelled Total Protein Albumin Procalcitonin Urine Color Urine Appearance Urine pH Ur Specific [place] Urine Protein Urine Glucose (UA) Urine Ketones Urine Blood Urine Nitrite Ur Leukocyte Esterase Urine RBC Urine WBC Ur Squamous Epith Cells Urine Bacteria Ur Random Sodium Urine Creatinine Peritoneal WBC Peritoneal RBC Periton Neutrophils Per[place] Lymphocytes Peritoneal Monocytes Peritoneal Eosinophils Peritoneal Basophils Peritoneal Other Cells Peritoneal Tot Protein Peritoneal LDH Peritoneal Glucose Stool Occult Blood Proteinase 3 (PR3) Ab Myeloperoxidase Ab Complement C3 Complement C4 Respiratory Panel [place] Adenovirus (Rapid PCR) B.pert (TEM-PCR) B.parapertussis DNA PCR C. pneumoniae DNA (PCR) Coronavirus OC43 (PCR) Coronavirus HKU1 (PCR) Coronavirus 229E (PCR) COVID-19 ([facility]) COVID-19 Clin Com Coronavirus NL63 (PCR) Human Metapneumovir PCR Influenza A (RT-PCR) Influenza B (RT-PCR) Ur L.pneumophila Ag M. pneumoniae (PCR) Parainfluenza 1 (PCR) Parainfluenza 2 (PCR) Parainfluenza 3 (PCR) Parainfluenza 4 (PCR) RSV (PCR) Entero/Rhino (PCR) SARS-CoV-2 RNA (RT-PCR) SARS-CoV-2 IgG Ab Blood Type Antibody Screen Crossmatch 07/03/20 07/03/20 07/03/20 07:45 08:21 11:00 WBC RBC Hgb Hct MCV MCH MCHC RDW Plt Count MPV Immature Gran % (Auto) Neut % (Auto) Lymph % (Auto) [place] % (Auto) Eos % (Auto) Baso % (Auto) Lymph # (Auto) [place] # (Auto) Eos # (Auto) Baso # (Auto) Abs Immat Gran (auto) Absolute Neuts (auto) Absolute Nucleated RBC Nucleated RBC % (auto) Smear Tech's Comments PT 21.7 H D INR 1.8 H D-Dimer 2366 ABG pH ABG pCO2 ABG pO2 ABG HCO3 ABG O2 Saturation ABG Base Excess VBG pH VBG pCO2 VBG pO2 VBG HCO3 VBG O2 Saturation VBG Base Excess Oxygen Given Sodium Potassium Chloride Carbon Dioxide Anion Gap BUN Creatinine Estim Creat Clear Calc Estimated GFR POC Glucose 145 H 142 H Random Glucose Lactic Acid Lactic Acid Fup @ 2Hr Lactic Acid Fup @ 4Hr Calcium Phosphorus Magnesium Total Bilirubin Direct Bilirubin AST ALT Alkaline Phosphatase Ammonia Troponin I High Sens C-Reactive Protein B-Natriuretic Peptide Total Protein Albumin Procalcitonin Urine Color Urine Appearance Urine pH Ur Specific [place] Urine Protein Urine Glucose (UA) Urine Ketones Urine Blood Urine Nitrite Ur Leukocyte Esterase Urine RBC Urine WBC Ur Squamous Epith Cells Urine Bacteria Ur Random Sodium Urine Creatinine Peritoneal WBC Peritoneal RBC Periton Neutrophils Per[place] Lymphocytes Peritoneal Monocytes Peritoneal Eosinophils Peritoneal Basophils Peritoneal Other Cells Peritoneal Tot Protein Peritoneal LDH Peritoneal Glucose Stool Occult Blood Proteinase 3 (PR3) Ab Myeloperoxidase Ab Complement C3 Complement C4 Respiratory Panel [place] Adenovirus (Rapid PCR) B.pert (TEM-PCR) B.parapertussis DNA PCR C. pneumoniae DNA (PCR) Coronavirus OC43 (PCR) Coronavirus HKU1 (PCR) Coronavirus 229E (PCR) COVID-19 ([facility]) COVID-19 Clin Com Coronavirus NL63 (PCR) Human Metapneumovir PCR Influenza A (RT-PCR) Influenza B (RT-PCR) Ur L.pneumophila Ag M. pneumoniae (PCR) Parainfluenza 1 (PCR) Parainfluenza 2 (PCR) Parainfluenza 3 (PCR) Parainfluenza 4 (PCR) RSV (PCR) Entero/Rhino (PCR) SARS-CoV-2 RNA (RT-PCR) SARS-CoV-2 IgG Ab Blood Type Antibody Screen Crossmatch 07/03/20 07/03/20 07/03/20 11:24 11:24 11:24 WBC RBC Hgb Hct MCV MCH MCHC RDW Plt Count MPV Immature Gran % (Auto) Neut % (Auto) Lymph % (Auto) [place] % (Auto) Eos % (Auto) Baso % (Auto) Lymph # (Auto) [place] # (Auto) Eos # (Auto) Baso # (Auto) Abs Immat Gran (auto) Absolute Neuts (auto) Absolute Nucleated RBC Nucleated RBC % (auto) Smear Tech's Comments PT INR D-Dimer ABG pH ABG pCO2 ABG pO2 ABG HCO3 ABG O2 Saturation ABG Base Excess VBG pH 7.13 L* VBG pCO2 41 VBG pO2 50 VBG HCO3 14 VBG O2 Saturation 72.0 VBG Base Excess -14.2 Oxygen Given Sodium Potassium Chloride Carbon Dioxide Anion Gap BUN Creatinine Estim Creat Clear Calc Estimated GFR POC Glucose Random Glucose Lactic Acid 2.2 H* Lactic Acid Fup @ 2Hr Lactic Acid Fup @ 4Hr Calcium Phosphorus Magnesium Total Bilirubin Direct Bilirubin AST ALT Alkaline Phosphatase Ammonia Troponin I High Sens C-Reactive Protein B-Natriuretic Peptide Total Protein Albumin Procalcitonin Urine Color Urine Appearance Urine pH Ur Specific [place] Urine Protein Urine Glucose (UA) Urine Ketones Urine Blood Urine Nitrite Ur Leukocyte Esterase Urine RBC Urine WBC Ur Squamous Epith Cells Urine Bacteria Ur Random Sodium Urine Creatinine Peritoneal WBC Peritoneal RBC Periton Neutrophils Per[place] Lymphocytes Peritoneal Monocytes Peritoneal Eosinophils Peritoneal Basophils Peritoneal Other Cells Peritoneal Tot Protein Peritoneal LDH Peritoneal Glucose Stool Occult Blood Proteinase 3 (PR3) Ab Myeloperoxidase Ab Complement C3 53 L Complement C4 8 L Respiratory Panel [place] Adenovirus (Rapid PCR) B.pert (TEM-PCR) B.parapertussis DNA PCR C. pneumoniae DNA (PCR) Coronavirus OC43 (PCR) Coronavirus HKU1 (PCR) Coronavirus 229E (PCR) COVID-19 ([facility]) COVID-19 Clin Com Coronavirus NL63 (PCR) Human Metapneumovir PCR Influenza A (RT-PCR) Influenza B (RT-PCR) Ur L.pneumophila Ag M. pneumoniae (PCR) Parainfluenza 1 (PCR) Parainfluenza 2 (PCR) Parainfluenza 3 (PCR) Parainfluenza 4 (PCR) RSV (PCR) Entero/Rhino (PCR) SARS-CoV-2 RNA (RT-PCR) SARS-CoV-2 IgG Ab Blood Type Antibody Screen Crossmatch 07/03/20 07/03/20 07/03/20 13:10 13:10 14:17 WBC RBC Hgb Hct MCV MCH MCHC RDW Plt Count MPV Immature Gran % (Auto) Neut % (Auto) Lymph % (Auto) [place] % (Auto) Eos % (Auto) Baso % (Auto) Lymph # (Auto) [place] # (Auto) Eos # (Auto) Baso # (Auto) Abs Immat Gran (auto) Absolute Neuts (auto) Absolute Nucleated RBC Nucleated RBC % (auto) Smear Tech's Comments PT INR D-Dimer ABG pH ABG pCO2 ABG pO2 ABG HCO3 ABG O2 Saturation ABG Base Excess VBG pH VBG pCO2 VBG pO2 VBG HCO3 VBG O2 Saturation VBG Base Excess Oxygen Given Sodium 132 L Potassium 5.5 H Chloride 102 Carbon Dioxide 14 L Anion Gap 22 H BUN 75 H Creatinine 3.97 H Estim Creat Clear Calc 14.5 Estimated GFR 11 POC Glucose Random Glucose 147 H Lactic Acid Lactic Acid Fup @ 2Hr Cancelled Lactic Acid Fup @ 4Hr Calcium 7.2 L Phosphorus 8.7 H Magnesium Total Bilirubin Direct Bilirubin AST ALT Alkaline Phosphatase Ammonia Troponin I High Sens C-Reactive Protein B-Natriuretic Peptide 803 H Total Protein Albumin Procalcitonin Urine Color Urine Appearance Urine pH Ur Specific [place] Urine Protein Urine Glucose (UA) Urine Ketones Urine Blood Urine Nitrite Ur Leukocyte Esterase Urine RBC Urine WBC Ur Squamous Epith Cells Urine Bacteria Ur Random Sodium Urine Creatinine Peritoneal WBC Peritoneal RBC Periton Neutrophils Periton Lymphocytes Peritoneal Monocytes Peritoneal Eosinophils Peritoneal Basophils Peritoneal Other Cells Peritoneal Tot Protein Peritoneal LDH Peritoneal Glucose Stool Occult Blood Proteinase 3 (PR3) Ab Myeloperoxidase Ab Complement C3 Complement C4 Respiratory Panel [place] Adenovirus (Rapid PCR) B.pert (TEM-PCR) B.parapertussis DNA PCR C. pneumoniae DNA (PCR) Coronavirus OC43 (PCR) Coronavirus HKU1 (PCR) Coronavirus 229E (PCR) COVID-19 ([facility]) COVID-19 Clin Com Coronavirus NL63 (PCR) Human Metapneumovir PCR Influenza A (RT-PCR) Influenza B (RT-PCR) Ur L.pneumophila Ag M. pneumoniae (PCR) Parainfluenza 1 (PCR) Parainfluenza 2 (PCR) Parainfluenza 3 (PCR) Parainfluenza 4 (PCR) RSV (PCR) Entero/Rhino (PCR) SARS-CoV-2 RNA (RT-PCR) SARS-CoV-2 IgG Ab Blood Type Antibody Screen Crossmatch 07/03/20 07/03/20 07/03/20 15:35 15:35 16:53 WBC RBC Hgb Hct MCV MCH MCHC RDW Plt Count MPV Immature Gran % (Auto) Neut % (Auto) Lymph % (Auto) [place] % (Auto) Eos % (Auto) Baso % (Auto) Lymph # (Auto) [place] # (Auto) Eos # (Auto) Baso # (Auto) Abs Immat Gran (auto) Absolute Neuts (auto) Absolute Nucleated RBC Nucleated RBC % (auto) Smear Tech's Comments PT INR D-Dimer ABG pH ABG pCO2 ABG pO2 ABG HCO3 ABG O2 Saturation ABG Base Excess VBG pH VBG pCO2 VBG pO2 VBG HCO3 VBG O2 Saturation VBG Base Excess Oxygen Given Sodium Potassium Chloride Carbon Dioxide Anion Gap BUN Creatinine Estim Creat Clear Calc Estimated GFR POC Glucose 152 H Random Glucose Lactic Acid Lactic Acid Fup @ 2Hr Lactic Acid Fup @ 4Hr Calcium Phosphorus Magnesium Total Bilirubin Direct Bilirubin AST ALT Alkaline Phosphatase Ammonia Troponin I High Sens C-Reactive Protein B-Natriuretic Peptide Total Protein Albumin Procalcitonin Urine Color Urine Appearance Urine pH Ur Specific [place] Urine Protein Urine Glucose (UA) Urine Ketones Urine Blood Urine Nitrite Ur Leukocyte Esterase Urine RBC Urine WBC Ur Squamous Epith Cells Urine Bacteria Ur Random Sodium Urine Creatinine Peritoneal WBC 0.011 Peritoneal RBC 0.002 Periton Neutrophils LITERACY SPECIALIST Periton Lymphocytes 75 Peritoneal Monocytes 25 Peritoneal Eosinophils LITERACY SPECIALIST Peritoneal Basophils LITERACY SPECIALIST Peritoneal Other Cells LITERACY SPECIALIST Peritoneal Tot Protein 3.4 Peritoneal LDH 92 Peritoneal Glucose 171 Stool Occult Blood Proteinase 3 (PR3) Ab Myeloperoxidase Ab Complement C3 Complement C4 Respiratory Panel [place] Adenovirus (Rapid PCR) B.pert (TEM-PCR) B.parapertussis DNA PCR C. pneumoniae DNA (PCR) Coronavirus OC43 (PCR) Coronavirus HKU1 (PCR) Coronavirus 229E (PCR) COVID-19 ([facility]) COVID-19 Clin Com Coronavirus NL63 (PCR) Human Metapneumovir PCR Influenza A (RT-PCR) Influenza B (RT-PCR) Ur L.pneumophila Ag M. pneumoniae (PCR) Parainfluenza 1 (PCR) Parainfluenza 2 (PCR) Parainfluenza 3 (PCR) Parainfluenza 4 (PCR) RSV (PCR) Entero/Rhino (PCR) SARS-CoV-2 RNA (RT-PCR) SARS-CoV-2 IgG Ab Blood Type Antibody Screen Crossmatch 07/03/20 07/03/20 07/03/20 21:26 22:18 22:18 WBC RBC Hgb Hct MCV MCH MCHC RDW Plt Count MPV Immature Gran % (Auto) Neut % (Auto) Lymph % (Auto) [place] % (Auto) Eos % (Auto) Baso % (Auto) Lymph # (Auto) [place] # (Auto) Eos # (Auto) Baso # (Auto) Abs Immat Gran (auto) Absolute Neuts (auto) Absolute Nucleated RBC Nucleated RBC % (auto) Smear Tech's Comments PT INR D-Dimer ABG pH ABG pCO2 ABG pO2 ABG HCO3 ABG O2 Saturation ABG Base Excess VBG pH VBG pCO2 VBG pO2 VBG HCO3 VBG O2 Saturation VBG Base Excess Oxygen Given Sodium 134 L Potassium 5.2 H Chloride 102 Carbon Dioxide 16 L Anion Gap 21 H BUN 81 H* Creatinine 4.19 H* Estim Creat Clear Calc 13.8 Estimated GFR 11 POC Glucose 147 H Random Glucose 163 H Lactic Acid 2.3 H* Lactic Acid Fup @ 2Hr Lactic Acid Fup @ 4Hr Calcium 7.5 L Phosphorus Magnesium Total Bilirubin Direct Bilirubin AST ALT Alkaline Phosphatase Ammonia Troponin I High Sens C-Reactive Protein B-Natriuretic Peptide Total Protein Albumin Procalcitonin Urine Color Urine Appearance Urine pH Ur Specific [place] Urine Protein Urine Glucose (UA) Urine Ketones Urine Blood Urine Nitrite Ur Leukocyte Esterase Urine RBC Urine WBC Ur Squamous Epith Cells Urine Bacteria Ur Random Sodium Urine Creatinine Peritoneal WBC Peritoneal RBC Periton Neutrophils Periton Lymphocytes Peritoneal Monocytes Peritoneal Eosinophils Peritoneal Basophils Peritoneal Other Cells Peritoneal Tot Protein Peritoneal LDH Peritoneal Glucose Stool Occult Blood Proteinase 3 (PR3) Ab Myeloperoxidase Ab Complement C3 Complement C4 Respiratory Panel [facility] Adenovirus (Rapid PCR) B.pert (TEM-PCR) B.parapertussis DNA PCR C. pneumoniae DNA (PCR) Coronavirus OC43 (PCR) Coronavirus HKU1 (PCR) Coronavirus 229E (PCR) COVID-19 ([facility]) COVID-19 Clin Com Coronavirus NL63 (PCR) Human Metapneumovir PCR Influenza A (RT-PCR) Influenza B (RT-PCR) Ur L.pneumophila Ag M. pneumoniae (PCR) Parainfluenza 1 (PCR) Parainfluenza 2 (PCR) Parainfluenza 3 (PCR) Parainfluenza 4 (PCR) RSV (PCR) Entero/Rhino (PCR) SARS-CoV-2 RNA (RT-PCR) SARS-CoV-2 IgG Ab Blood Type Antibody Screen Crossmatch 07/03/20 07/04/20 07/04/20 22:18 00:18 01:12 WBC RBC Hgb Hct MCV MCH MCHC RDW Plt Count MPV Immature Gran % (Auto) Neut % (Auto) Lymph % (Auto) [place] % (Auto) Eos % (Auto) Baso % (Auto) Lymph # (Auto) [place] # (Auto) Eos # (Auto) Baso # (Auto) Abs Immat Gran (auto) Absolute Neuts (auto) Absolute Nucleated RBC Nucleated RBC % (auto) Smear Tech's Comments PT INR D-Dimer ABG pH ABG pCO2 ABG pO2 ABG HCO3 ABG O2 Saturation ABG Base Excess VBG pH 7.20 L* VBG pCO2 38 VBG pO2 85 VBG HCO3 15 VBG O2 Saturation 94.0 VBG Base Excess -11.7 Oxygen Given Sodium Potassium Chloride Carbon Dioxide Anion Gap BUN Creatinine Estim Creat Clear Calc Estimated GFR POC Glucose Random Glucose Lactic Acid Lactic Acid Fup @ 2Hr 2.5 H* Lactic Acid Fup @ 4Hr Calcium Phosphorus Magnesium Total Bilirubin Direct Bilirubin AST ALT Alkaline Phosphatase Ammonia Troponin I High Sens C-Reactive Protein B-Natriuretic Peptide Total Protein Albumin Procalcitonin Urine Color BROWN Urine Appearance TURBID Urine pH 6.5 Ur Specific [place] >= 1.030 H Urine Protein 3+ H Urine Glucose (UA) 100 H Urine Ketones 5 Urine Blood 3+ H Urine Nitrite NEG Ur Leukocyte Esterase TRACE H Urine RBC TNTC H Urine WBC 10-14 H Ur Squamous Epith Cells 1+ Urine Bacteria 2+ Ur Random Sodium Urine Creatinine Peritoneal WBC Peritoneal RBC Periton Neutrophils [place] Lymphocytes Peritoneal Monocytes Peritoneal Eosinophils Peritoneal Basophils Peritoneal Other Cells Peritoneal Tot Protein Peritoneal LDH Peritoneal Glucose Stool Occult Blood Proteinase 3 (PR3) Ab Myeloperoxidase Ab Complement C3 Complement C4 Respiratory Panel [place] Adenovirus (Rapid PCR) B.pert (TEM-PCR) B.parapertussis DNA PCR C. pneumoniae DNA (PCR) Coronavirus OC43 (PCR) Coronavirus HKU1 (PCR) Coronavirus 229E (PCR) COVID-19 ([facility]) COVID-19 Clin Com Coronavirus NL63 (PCR) Human Metapneumovir PCR Influenza A (RT-PCR) Influenza B (RT-PCR) Ur L.pneumophila Ag M. pneumoniae (PCR) Parainfluenza 1 (PCR) Parainfluenza 2 (PCR) Parainfluenza 3 (PCR) Parainfluenza 4 (PCR) RSV (PCR) Entero/Rhino (PCR) SARS-CoV-2 RNA (RT-PCR) SARS-CoV-2 IgG Ab Blood Type Antibody Screen Crossmatch 07/04/20 07/04/20 07/04/20 05:08 05:08 05:08 WBC 13.6 H RBC 3.54 L Hgb 9.1 L Hct 30.7 L MCV 86.7 MCH 25.7 L MCHC 29.6 L RDW 17.0 H Plt Count 224 MPV 10.0 Immature Gran % (Auto) 0.5 H Neut % (Auto) 79.5 H Lymph % (Auto) 7.[address] [place] % (Auto) 12.2 H Eos % (Auto) 0.1 Baso % (Auto) 0.1 Lymph # (Auto) 1.[address] [place] # (Auto) 1.7 H Eos # (Auto) 0.0 Baso # (Auto) 0.0 Abs Immat Gran (auto) 0.07 H Absolute Neuts (auto) 10.9 H Absolute Nucleated RBC 0.070 H Nucleated RBC % (auto) 0.5 H Smear Tech's Comments VERIFIED PT INR D-Dimer ABG pH ABG pCO2 ABG pO2 ABG HCO3 ABG O2 Saturation ABG Base Excess VBG pH 7.19 L* VBG pCO2 40 VBG pO2 125 VBG HCO3 15 VBG O2 Saturation 99.0 VBG Base Excess -11.7 Oxygen Given Sodium 135 Potassium 5.4 H Chloride 103 Carbon Dioxide 14 L Anion Gap 23 H BUN 86 H* Creatinine 4.46 H* Estim Creat Clear Calc 12.9 Estimated GFR 10 POC Glucose Random Glucose 169 H Lactic Acid Lactic Acid Fup @ 2Hr Lactic Acid Fup @ 4Hr Calcium 7.4 L Phosphorus 9.1 H Magnesium Total Bilirubin Direct Bilirubin AST ALT Alkaline Phosphatase Ammonia Troponin I High Sens C-Reactive Protein 0.69 H B-Natriuretic Peptide Total Protein Albumin Procalcitonin Urine Color Urine Appearance Urine pH Ur Specific [place] Urine Protein Urine Glucose (UA) Urine Ketones Urine Blood Urine Nitrite Ur Leukocyte Esterase Urine RBC Urine WBC Ur Squamous Epith Cells Urine Bacteria Ur Random Sodium Urine Creatinine Peritoneal WBC Peritoneal RBC Periton Neutrophils [place] Lymphocytes Peritoneal Monocytes Peritoneal Eosinophils Peritoneal Basophils Peritoneal Other Cells Peritoneal Tot Protein Peritoneal LDH Peritoneal Glucose Stool Occult Blood Proteinase 3 (PR3) Ab Myeloperoxidase Ab Complement C3 Complement C4 Respiratory Panel [place] Adenovirus (Rapid PCR) B.pert (TEM-PCR) B.parapertussis DNA PCR C. pneumoniae DNA (PCR) Coronavirus OC43 (PCR) Coronavirus HKU1 (PCR) Coronavirus 229E (PCR) COVID-19 ([facility]) COVID-19 Clin Com Coronavirus NL63 (PCR) Human Metapneumovir PCR Influenza A (RT-PCR) Influenza B (RT-PCR) Ur L.pneumophila Ag M. pneumoniae (PCR) Parainfluenza 1 (PCR) Parainfluenza 2 (PCR) Parainfluenza 3 (PCR) Parainfluenza 4 (PCR) RSV (PCR) Entero/Rhino (PCR) SARS-CoV-2 RNA (RT-PCR) SARS-CoV-2 IgG Ab Blood Type Antibody Screen Crossmatch 07/04/20 07/04/20 07/04/20 08:06 11:10 11:36 WBC RBC Hgb Hct MCV MCH MCHC RDW Plt Count MPV Immature Gran % (Auto) Neut % (Auto) Lymph % (Auto) [place] % (Auto) Eos % (Auto) Baso % (Auto) Lymph # (Auto) [place] # (Auto) Eos # (Auto) Baso # (Auto) Abs Immat Gran (auto) Absolute Neuts (auto) Absolute Nucleated RBC Nucleated RBC % (auto) Smear Tech's Comments PT INR D-Dimer ABG pH ABG pCO2 ABG pO2 ABG HCO3 ABG O2 Saturation ABG Base Excess VBG pH VBG pCO2 VBG pO2 VBG HCO3 VBG O2 Saturation VBG Base Excess Oxygen Given Sodium 135 Potassium 4.3 D Chloride 103 Carbon Dioxide 18 L Anion Gap 18 BUN 70 H Creatinine 3.75 H Estim Creat Clear Calc 15.4 Estimated GFR 12 POC Glucose 149 H 156 H Random Glucose 166 H Lactic Acid Lactic Acid Fup @ 2Hr Lactic Acid Fup @ 4Hr Calcium 7.6 L Phosphorus Magnesium 2.0 Total Bilirubin 2.1 H Direct Bilirubin AST 43 H ALT 25 Alkaline Phosphatase 66 Ammonia Troponin I High Sens C-Reactive Protein B-Natriuretic Peptide Total Protein 6.9 Albumin 3.4 L Procalcitonin Urine Color Urine Appearance Urine pH Ur Specific [place] Urine Protein Urine Glucose (UA) Urine Ketones Urine Blood Urine Nitrite Ur Leukocyte Esterase Urine RBC Urine WBC Ur Squamous Epith Cells Urine Bacteria Ur Random Sodium Urine Creatinine Peritoneal WBC Peritoneal RBC Periton Neutrophils [place] Lymphocytes Peritoneal Monocytes Peritoneal Eosinophils Peritoneal Basophils Peritoneal Other Cells Peritoneal Tot Protein Peritoneal LDH Peritoneal Glucose Stool Occult Blood Proteinase 3 (PR3) Ab Myeloperoxidase Ab Complement C3 Complement C4 Respiratory Panel [place] Adenovirus (Rapid PCR) B.pert (TEM-PCR) B.parapertussis DNA PCR C. pneumoniae DNA (PCR) Coronavirus OC43 (PCR) Coronavirus HKU1 (PCR) Coronavirus 229E (PCR) COVID-19 ([facility]) COVID-19 Clin Com Coronavirus NL63 (PCR) Human Metapneumovir PCR Influenza A (RT-PCR) Influenza B (RT-PCR) Ur L.pneumophila Ag M. pneumoniae (PCR) Parainfluenza 1 (PCR) Parainfluenza 2 (PCR) Parainfluenza 3 (PCR) Parainfluenza 4 (PCR) RSV (PCR) Entero/Rhino (PCR) SARS-CoV-2 RNA (RT-PCR) SARS-CoV-2 IgG Ab Blood Type Antibody Screen Crossmatch 07/04/20 07/04/20 07/04/20 11:36 11:36 11:36 WBC RBC Hgb Hct MCV MCH MCHC RDW Plt Count MPV Immature Gran % (Auto) Neut % (Auto) Lymph % (Auto) [place] % (Auto) Eos % (Auto) Baso % (Auto) Lymph # (Auto) [place] # (Auto) Eos # (Auto) Baso # (Auto) Abs Immat Gran (auto) Absolute Neuts (auto) Absolute Nucleated RBC Nucleated RBC % (auto) Smear Tech's Comments PT INR D-Dimer ABG pH ABG pCO2 ABG pO2 ABG HCO3 ABG O2 Saturation ABG Base Excess VBG pH 7.23 L VBG pCO2 37 VBG pO2 100 VBG HCO3 16 VBG O2 Saturation 97.0 VBG Base Excess -10.4 Oxygen Given Sodium Potassium Chloride Carbon Dioxide Anion Gap BUN Creatinine Estim Creat Clear Calc Estimated GFR POC Glucose Random Glucose Lactic Acid 2.6 H* Lactic Acid Fup @ 2Hr Lactic Acid Fup @ 4Hr Calcium Phosphorus Magnesium Total Bilirubin Direct Bilirubin AST ALT Alkaline Phosphatase Ammonia Troponin I High Sens C-Reactive Protein B-Natriuretic Peptide Total Protein Albumin Procalcitonin 0.25 Urine Color Urine Appearance Urine pH Ur Specific [place] Urine Protein Urine Glucose (UA) Urine Ketones Urine Blood Urine Nitrite Ur Leukocyte Esterase Urine RBC Urine WBC Ur Squamous Epith Cells Urine Bacteria Ur Random Sodium Urine Creatinine Peritoneal WBC Peritoneal RBC Periton Neutrophils [place] Lymphocytes Peritoneal Monocytes Peritoneal Eosinophils Peritoneal Basophils Peritoneal Other Cells Peritoneal Tot Protein Peritoneal LDH Peritoneal Glucose Stool Occult Blood Proteinase 3 (PR3) Ab Myeloperoxidase Ab Complement C3 Complement C4 Respiratory Panel [place] Adenovirus (Rapid PCR) B.pert (TEM-PCR) B.parapertussis DNA PCR C. pneumoniae DNA (PCR) Coronavirus OC43 (PCR) Coronavirus HKU1 (PCR) Coronavirus 229E (PCR) COVID-19 ([facility]) COVID-19 Clin Com Coronavirus NL63 (PCR) Human Metapneumovir PCR Influenza A (RT-PCR) Influenza B (RT-PCR) Ur L.pneumophila Ag M. pneumoniae (PCR) Parainfluenza 1 (PCR) Parainfluenza 2 (PCR) Parainfluenza 3 (PCR) Parainfluenza 4 (PCR) RSV (PCR) Entero/Rhino (PCR) SARS-CoV-2 RNA (RT-PCR) SARS-CoV-2 IgG Ab Blood Type Antibody Screen Crossmatch 07/04/20 07/04/20 07/04/20 14:51 16:32 17:50 WBC RBC Hgb Hct MCV MCH MCHC RDW Plt Count MPV Immature Gran % (Auto) Neut % (Auto) Lymph % (Auto) [place] % (Auto) Eos % (Auto) Baso % (Auto) Lymph # (Auto) [place] # (Auto) Eos # (Auto) Baso # (Auto) Abs Immat Gran (auto) Absolute Neuts (auto) Absolute Nucleated RBC Nucleated RBC % (auto) Smear Tech's Comments PT INR D-Dimer ABG pH ABG pCO2 ABG pO2 ABG HCO3 ABG O2 Saturation ABG Base Excess VBG pH 7.22 L VBG pCO2 33 VBG pO2 109 VBG HCO3 14 VBG O2 Saturation 97.0 VBG Base Excess -12.4 Oxygen Given Sodium Potassium Chloride Carbon Dioxide Anion Gap BUN Creatinine Estim Creat Clear Calc Estimated GFR POC Glucose 173 H Random Glucose Lactic Acid Lactic Acid Fup @ 2Hr Lactic Acid Fup @ 4Hr Calcium Phosphorus Magnesium Total Bilirubin Direct Bilirubin AST ALT Alkaline Phosphatase Ammonia 73 H Troponin I High Sens C-Reactive Protein B-Natriuretic Peptide Total Protein Albumin Procalcitonin Urine Color Urine Appearance Urine pH Ur Specific [place] Urine Protein Urine Glucose (UA) Urine Ketones Urine Blood Urine Nitrite Ur Leukocyte Esterase Urine RBC Urine WBC Ur Squamous Epith Cells Urine Bacteria Ur Random Sodium Urine Creatinine Peritoneal WBC Peritoneal RBC Periton Neutrophils [place] Lymphocytes Peritoneal Monocytes Peritoneal Eosinophils Peritoneal Basophils Peritoneal Other Cells Peritoneal Tot Protein Peritoneal LDH Peritoneal Glucose Stool Occult Blood Proteinase 3 (PR3) Ab Myeloperoxidase Ab Complement C3 Complement C4 Respiratory Panel [place] Adenovirus (Rapid PCR) B.pert (TEM-PCR) B.parapertussis DNA PCR C. pneumoniae DNA (PCR) Coronavirus OC43 (PCR) Coronavirus HKU1 (PCR) Coronavirus 229E (PCR) COVID-19 ([facility]) COVID-19 Clin Com Coronavirus NL63 (PCR) Human Metapneumovir PCR Influenza A (RT-PCR) Influenza B (RT-PCR) Ur L.pneumophila Ag M. pneumoniae (PCR) Parainfluenza 1 (PCR) Parainfluenza 2 (PCR) Parainfluenza 3 (PCR) Parainfluenza 4 (PCR) RSV (PCR) Entero/Rhino (PCR) SARS-CoV-2 RNA (RT-PCR) SARS-CoV-2 IgG Ab Blood Type Antibody Screen Crossmatch 07/04/20 07/04/2021 19:54 19:54 21:24 WBC RBC Hgb Hct MCV MCH MCHC RDW Plt Count MPV Immature Gran % (Auto) Neut % (Auto) Lymph % (Auto) [place] % (Auto) Eos % (Auto) Baso % (Auto) Lymph # (Auto) [place] # (Auto) Eos # (Auto) Baso # (Auto) Abs Immat Gran (auto) Absolute Neuts (auto) Absolute Nucleated RBC Nucleated RBC % (auto) Smear Tech's Comments PT INR D-Dimer ABG pH 7.21 L ABG pCO2 30 L ABG pO2 250 H ABG HCO3 12 L ABG O2 Saturation 99.0 ABG Base Excess -13.7 VBG pH VBG pCO2 VBG pO2 VBG HCO3 VBG O2 Saturation VBG Base Excess Oxygen Given 100% Sodium Potassium Chloride Carbon Dioxide Anion Gap BUN Creatinine Estim Creat Clear Calc Estimated GFR POC Glucose 170 H Random Glucose Lactic Acid 4.1 H* Lactic Acid Fup @ 2Hr Lactic Acid Fup @ 4Hr Calcium Phosphorus Magnesium Total Bilirubin Direct Bilirubin AST ALT Alkaline Phosphatase Ammonia Troponin I High Sens C-Reactive Protein B-Natriuretic Peptide Total Protein Albumin Procalcitonin Urine Color Urine Appearance Urine pH Ur Specific [place] Urine Protein Urine Glucose (UA) Urine Ketones Urine Blood Urine Nitrite Ur Leukocyte Esterase Urine RBC Urine WBC Ur Squamous Epith Cells Urine Bacteria Ur Random Sodium Urine Creatinine Peritoneal WBC Peritoneal RBC Periton Neutrophils [place] Lymphocytes Peritoneal Monocytes Peritoneal Eosinophils Peritoneal Basophils Peritoneal Other Cells Peritoneal Tot Protein Peritoneal LDH Peritoneal Glucose Stool Occult Blood Proteinase 3 (PR3) Ab Myeloperoxidase Ab Complement C3 Complement C4 Respiratory Panel [facility] Adenovirus (Rapid PCR) B.pert (TEM-PCR) B.parapertussis DNA PCR C. pneumoniae DNA (PCR) Coronavirus OC43 (PCR) Coronavirus HKU1 (PCR) Coronavirus 229E (PCR) COVID-19 ([facility]) COVID-19 Clin Com Coronavirus NL63 (PCR) Human Metapneumovir PCR Influenza A (RT-PCR) Influenza B (RT-PCR) Ur L.pneumophila Ag M. pneumoniae (PCR) Parainfluenza 1 (PCR) Parainfluenza 2 (PCR) Parainfluenza 3 (PCR) Parainfluenza 4 (PCR) RSV (PCR) Entero/Rhino (PCR) SARS-CoV-2 RNA (RT-PCR) SARS-CoV-2 IgG Ab Blood Type Antibody Screen Crossmatch 07/04/20 07/04/20 07/05/20 22:05 22:51 00:33 WBC RBC Hgb Hct MCV MCH MCHC RDW Plt Count MPV Immature Gran % (Auto) Neut % (Auto) Lymph % (Auto) [place] % (Auto) Eos % (Auto) Baso % (Auto) Lymph # (Auto) [place] # (Auto) Eos # (Auto) Baso # (Auto) Abs Immat Gran (auto) Absolute Neuts (auto) Absolute Nucleated RBC Nucleated RBC % (auto) Smear Tech's Comments PT INR D-Dimer ABG pH 7.09 L* ABG pCO2 33 ABG pO2 152 H ABG HCO3 10 L ABG O2 Saturation 99.0 ABG Base Excess -17.6 VBG pH VBG pCO2 VBG pO2 VBG HCO3 VBG O2 Saturation VBG Base Excess Oxygen Given 100% Sodium Potassium Chloride Carbon Dioxide Anion Gap BUN Creatinine Estim Creat Clear Calc Estimated GFR POC Glucose Random Glucose Lactic Acid Lactic Acid Fup @ 2Hr 5.5 H* Lactic Acid Fup @ 4Hr 8.1 H* Calcium Phosphorus Magnesium Total Bilirubin Direct Bilirubin AST ALT Alkaline Phosphatase Ammonia Troponin I High Sens C-Reactive Protein B-Natriuretic Peptide Total Protein Albumin Procalcitonin Urine Color Urine Appearance Urine pH Ur Specific [place] Urine Protein Urine Glucose (UA) Urine Ketones Urine Blood Urine Nitrite Ur Leukocyte Esterase Urine RBC Urine WBC Ur Squamous Epith Cells Urine Bacteria Ur Random Sodium Urine Creatinine Peritoneal WBC Peritoneal RBC Periton Neutrophils [place] Lymphocytes Peritoneal Monocytes Peritoneal Eosinophils Peritoneal Basophils Peritoneal Other Cells Peritoneal Tot Protein Peritoneal LDH Peritoneal Glucose Stool Occult Blood Proteinase 3 (PR3) Ab Myeloperoxidase Ab Complement C3 Complement C4 Respiratory Panel [place] Adenovirus (Rapid PCR) B.pert (TEM-PCR) B.parapertussis DNA PCR C. pneumoniae DNA (PCR) Coronavirus OC43 (PCR) Coronavirus HKU1 (PCR) Coronavirus 229E (PCR) COVID-19 ([facility]) COVID-19 Clin Com Coronavirus NL63 (PCR) Human Metapneumovir PCR Influenza A (RT-PCR) Influenza B (RT-PCR) Ur L.pneumophila Ag M. pneumoniae (PCR) Parainfluenza 1 (PCR) Parainfluenza 2 (PCR) Parainfluenza 3 (PCR) Parainfluenza 4 (PCR) RSV (PCR) Entero/Rhino (PCR) SARS-CoV-2 RNA (RT-PCR) SARS-CoV-2 IgG Ab Blood Type Antibody Screen Crossmatch 07/05/20 07/05/20 01:49 01:49 WBC RBC Hgb Hct MCV MCH MCHC RDW Plt Count MPV Immature Gran % (Auto) Neut % (Auto) Lymph % (Auto) [place] % (Auto) Eos % (Auto) Baso % (Auto) Lymph # (Auto) [place] # (Auto) Eos # (Auto) Baso # (Auto) Abs Immat Gran (auto) Absolute Neuts (auto) Absolute Nucleated RBC Nucleated RBC % (auto) Smear Tech's Comments PT INR D-Dimer ABG pH 7.10 L* ABG pCO2 35 ABG pO2 216 H ABG HCO3 11 L ABG O2 Saturation 99.0 ABG Base Excess -17.0 VBG pH VBG pCO2 VBG pO2 VBG HCO3 VBG O2 Saturation VBG Base Excess Oxygen Given 100% Sodium Potassium Chloride Carbon Dioxide Anion Gap BUN Creatinine Estim Creat Clear Calc Estimated GFR POC Glucose Random Glucose Lactic Acid 9.3 H* Lactic Acid Fup @ 2Hr Lactic Acid Fup @ 4Hr Calcium Phosphorus Magnesium Total Bilirubin Direct Bilirubin AST ALT Alkaline Phosphatase Ammonia Troponin I High Sens C-Reactive Protein B-Natriuretic Peptide Total Protein Albumin Procalcitonin Urine Color Urine Appearance Urine pH Ur Specific [place] Urine Protein Urine Glucose (UA) Urine Ketones Urine Blood Urine Nitrite Ur Leukocyte Esterase Urine RBC Urine WBC Ur Squamous Epith Cells Urine Bacteria Ur Random Sodium Urine Creatinine Peritoneal WBC Peritoneal RBC Periton Neutrophils [place] Lymphocytes Peritoneal Monocytes Peritoneal Eosinophils Peritoneal Basophils Peritoneal Other Cells Peritoneal Tot Protein Peritoneal LDH Peritoneal Glucose Stool Occult Blood Proteinase 3 (PR3) Ab Myeloperoxidase Ab Complement C3 Complement C4 Respiratory Panel [place] Adenovirus (Rapid PCR) B.pert (TEM-PCR) B.parapertussis DNA PCR C. pneumoniae DNA (PCR) Coronavirus OC43 (PCR) Coronavirus HKU1 (PCR) Coronavirus 229E (PCR) COVID-19 ([facility]) COVID-19 Clin Com Coronavirus NL63 (PCR) Human Metapneumovir PCR Influenza A (RT-PCR) Influenza B (RT-PCR) Ur L.pneumophila Ag M. pneumoniae (PCR) Parainfluenza 1 (PCR) Parainfluenza 2 (PCR) Parainfluenza 3 (PCR) Parainfluenza 4 (PCR) RSV (PCR) Entero/Rhino (PCR) SARS-CoV-2 RNA (RT-PCR) SARS-CoV-2 IgG Ab Blood Type Antibody Screen Crossmatch Preliminary micro results at discharge 07/03/20 11:06 Blood Culture - Preliminary Blood - Venous No growth after 24 hours. 07/03/20 11:24 Blood Culture - Preliminary Blood - Venous No growth after 24 hours. 07/03/20 15:35 Body Fluid Culture - Preliminary Paracentesis Fluid No growth to date. Discharge Plan Discharge Date/Time: 07/05/20 12:00 Patient Disposition: Referrals: Diaz Casiano PA-C [Primary Care Provider] - Discharge Medications: No Action lorazepam 0.5 mg tablet 0.5 mg PO DAILY PRN (Reason: anxiety) 15 Days Qty: 15 RF: 1 paroxetine HCl 40 mg tablet 1 tab PO QAM RF: 0 omeprazole 20 MG 20 mg PO DAILY RF: 0 cyanocobalamin (vitamin B-12) 1,000 mcg/mL solution 1,000 mcg IM QMONTH RF: 0 metoprolol succinate 100 mg tablet extended release 24 hr 100 mg PO DAILY RF: 0 lisinopril 2.5 mg tablet 2.5 mg PO DAILY RF: 0 furosemide [Lasix] 20 mg tablet 20 mg PO DAILY RF: 0 spironolactone [Aldactone] 25 mg tablet 50 mg PO DAILY RF: 0 ursodiol 300 mg capsule 600 mg PO TID RF: 0 albuterol sulfate 90 mcg/actuation HFA aerosol inhaler 2 puff inhalation Q6H PRN (Reason: Cough) RF: 0 aspirin 325 mg tablet 325 mg PO DAILY RF: 0 hydroxyzine HCl 25 mg tablet 25 mg PO Q6H PRN (Reason: itching) 30 Days Qty: 120 RF: 1 levothyroxine 175 mcg tablet 175 mcg PO DAILY 30 Days Qty: 30 RF: 3 Discharge Date/Time: 07/05/20 12:30
--- NOTE | 2020-07-05 06:47 | PC.NURSE ---
FAMILY AT BEDSIDE. PT IS COMFORT MEASURES. ALL IV DRIPS HAVE BEEN D/C'D INCLUDING LEVOPHED, VASOPRESSIN AND ESMOLOL. PT HAS RECEIVED FENTANYL PRN, DILAUDID PRN AND ATIVAN PRN. HR HAS DROPPED TO 80'S AFIB. SBP 40''S-50'S.
[2020-07-05 09:19] VITALS: BP 40/22; PULSE 70; RESP 10
[2020-07-05 10:58] VITALS: BP 37/22; PULSE 51; RESP 8
--- NOTE | 2020-07-05 11:58 | PM.CCPN ---
Subjective Subjective Date of Service: 07/05/20 Interval History: Mrs. Hoffmann was admitted to ICU Jul 03 bec of hypotension and acute renal failure. The patient is a 65 yr-old woman with PMHx of bronchitis; primary biliary cirrhosis, on the transplant list [facility]; biventricular cardiomyopathy (see below; etiology unknown), followed by cardiology at [facility]; atrial fibrillation, status post Watchman procedure at [facility], no longer on anticoagulation but still on full dose aspirin; hypertension; diabetes; hypothyroidism; pancytopenia; iron deficiency anemia; and chronic pain. Surgical history is notable for cholecystectomy. Echo on 01/16/19 (reportedly done bec of ?fluid overload?) showed LV CMOP w EF 30-35%, severe biatrial enlargement, moderate TR with dilated IVC, RVSP estimate was 41 mm. On June 29, she presented to Urgent Care with a dry cough x 3 weeks, with low-grade temp and dark stools. No GI sx or recent travel or sick contacts. At Urgent Care, COVID test was negative, but her HR was in 140s, and she was sent to the ER. In the ED, HR was 130, afib. BP 108/70. Sat was 94-98% on room air. Stool was black, heme positive. Her hemoglobin was noted to be 7.9 (baseline 10-13), platelet count 73 (baseline 80-130). WBC was 3.6 (baseline 3-4). BUN/creat were 21/0.9 (baseline about 0.8, but she did have one value of 1.4 in 2019, ? reason). CXR was read as showing diffuse bilateral patchy ground-glass opacities (on my reading today, I?m unimpressed that there?s any acute dz on the film). She was given metoprolol, PPI, and Levaquin, and transfused 1 unit RBCs. Hb savi to 9.2, and has been stable since then. No clinical bleeding. Blood pressures were running mostly in the SBP 90-110 range. Post admission, her BP began to decline, and she developed progressive HAYLEY, with severe hypotension and anuric renal failure on July 03. She was transferred to ICU, where echo showed more severe biventricular CMOP, with biventricular dilatation and EF 20-30%, dilated IVC. No specific cause of her CMOP was found, and no source of sepsis was found. We consulted with [facility]; they had no specific ideas regarding the etiology of her decline. They accepted her in transfer but anticipated no bed availability for 48 hrs. We dialyzed her yesterday but her decline continued. Last night her hypotension worsened. An arterial line was placed. I reecho?d her and there was even worse global hypokinesis, with EF about 10%. RV was dilated. She required a marked increase in her pressor dose. Her lactate levels savi further. We spoke again with the [facility] transfer team. They indicated that she was a priority for transfer in but couldn?t take her yet. With incipient resp failure, we spoke with the patient?s and he indicated that she would never have wanted invasive critical care management. He came in and the decision was made to transition to comfort measures. The pressors were stopped and she was made comfortable. On my exam this morning, she?s unresponsive and her breathing is agonal. RR is about 10 and shallow. HR 60?s. ABP 30?s. She became asystolic and apneic at 1200, Jul 05, 2020. IMPRESSION: 1. Underlying PBC. 2. Atrial fibrillation, post Watchman procedure. Low dose esmolol dropped her BP. Little if any response to digoxin 0.25mg. 3. Baseline biventricular CMOP of unknown etiology, but it?s not new. No evidence of ischemia by trop, EKG, and no RWMA on echo. Hepatopulmonary syndrome is the only clear diagnosis we can hang our hat on. 4. Refractory hypotension. Undetermined etiology, other than liver disease, made worse by hepatopulmonary syndrome. Little evidence for sepsis. The worsening lactate, PT, and the ammonia level are suggestive of progressive hepatic failure. 5. R/o sepsis. No evidence of a locus of infection. 6. HAYLEY. 2? ATN, 2? hypotension. 7. GI bleed. Resolved. Time: 09092. Physical Exam Vital Signs: Vital Signs: Last Vital Signs Temp 97.7 F 07/05/20 02:00 Pulse 51 07/05/20 10:58 Resp 8 L 07/05/20 10:58 BP 37/22 L 07/05/20 10:58 Pulse Ox 84 L 07/04/20 20:50 Body Mass Index 32.4 Objective Data Labs CBC & Chem 7: 07/04/20 05:08 07/04/20 11:36 Labs: Laboratory Results - last 24 hr 07/03/20 07/03/20 07/04/20 05:57 11:24 11:36 ABG pH ABG pCO2 ABG pO2 ABG HCO3 ABG O2 Saturation ABG Base Excess VBG pH VBG pCO2 VBG pO2 VBG HCO3 VBG O2 Saturation VBG Base Excess Oxygen Given Sodium 135 Potassium 4.3 D Chloride 103 Carbon Dioxide 18 L Anion Gap 18 BUN 70 H Creatinine 3.75 H Estim Creat Clear Calc 15.4 Estimated GFR 12 POC Glucose Random Glucose 166 H Lactic Acid Lactic Acid Fup @ 2Hr Lactic Acid Fup @ 4Hr Calcium 7.6 L Magnesium 2.0 Total Bilirubin 2.1 H AST 43 H ALT 25 Alkaline Phosphatase 66 Ammonia Total Protein 6.9 Albumin 3.4 L Procalcitonin Proteinase 3 (PR3) Ab <1.0 Myeloperoxidase Ab <1.0 Complement C3 53 L Complement C4 8 L 07/04/20 07/04/20 07/04/20 11:36 11:36 14:51 ABG pH ABG pCO2 ABG pO2 ABG HCO3 ABG O2 Saturation ABG Base Excess VBG pH VBG pCO2 VBG pO2 VBG HCO3 VBG O2 Saturation VBG Base Excess Oxygen Given Sodium Potassium Chloride Carbon Dioxide Anion Gap BUN Creatinine Estim Creat Clear Calc Estimated GFR POC Glucose Random Glucose Lactic Acid 2.6 H* Lactic Acid Fup @ 2Hr Lactic Acid Fup @ 4Hr Calcium Magnesium Total Bilirubin AST ALT Alkaline Phosphatase Ammonia 73 H Total Protein Albumin Procalcitonin 0.25 Proteinase 3 (PR3) Ab Myeloperoxidase Ab Complement C3 Complement C4 07/04/20 07/04/20 07/04/20 16:32 17:50 19:54 ABG pH ABG pCO2 ABG pO2 ABG HCO3 ABG O2 Saturation ABG Base Excess VBG pH 7.22 L VBG pCO2 33 VBG pO2 109 VBG HCO3 14 VBG O2 Saturation 97.0 VBG Base Excess -12.4 Oxygen Given Sodium Potassium Chloride Carbon Dioxide Anion Gap BUN Creatinine Estim Creat Clear Calc Estimated GFR POC Glucose 173 H Random Glucose Lactic Acid 4.1 H* Lactic Acid Fup @ 2Hr Lactic Acid Fup @ 4Hr Calcium Magnesium Total Bilirubin AST ALT Alkaline Phosphatase Ammonia Total Protein Albumin Procalcitonin Proteinase 3 (PR3) Ab Myeloperoxidase Ab Complement C3 Complement C4 02/10/1707/04/20 07/04/20 19:54 21:24 22:05 ABG pH 7.21 L ABG pCO2 30 L ABG pO2 250 H ABG HCO3 12 L ABG O2 Saturation 99.0 ABG Base Excess -13.7 VBG pH VBG pCO2 VBG pO2 VBG HCO3 VBG O2 Saturation VBG Base Excess Oxygen Given 100% Sodium Potassium Chloride Carbon Dioxide Anion Gap BUN Creatinine Estim Creat Clear Calc Estimated GFR POC Glucose 170 H Random Glucose Lactic Acid Lactic Acid Fup @ 2Hr 5.5 H* Lactic Acid Fup @ 4Hr Calcium Magnesium Total Bilirubin AST ALT Alkaline Phosphatase Ammonia Total Protein Albumin Procalcitonin Proteinase 3 (PR3) Ab Myeloperoxidase Ab Complement C3 Complement C4 07/04/20 07/05/20 07/05/20 22:51 00:33 01:49 ABG pH 7.09 L* 7.10 L* ABG pCO2 33 35 ABG pO2 152 H 216 H ABG HCO3 10 L 11 L ABG O2 Saturation 99.0 99.0 ABG Base Excess -17.6 -17.0 VBG pH VBG pCO2 VBG pO2 VBG HCO3 VBG O2 Saturation VBG Base Excess Oxygen Given 100% 100% Sodium Potassium Chloride Carbon Dioxide Anion Gap BUN Creatinine Estim Creat Clear Calc Estimated GFR POC Glucose Random Glucose Lactic Acid Lactic Acid Fup @ 2Hr Lactic Acid Fup @ 4Hr 8.1 H* Calcium Magnesium Total Bilirubin AST ALT Alkaline Phosphatase Ammonia Total Protein Albumin Procalcitonin Proteinase 3 (PR3) Ab Myeloperoxidase Ab Complement C3 Complement C4 07/05/20 01:49 ABG pH ABG pCO2 ABG pO2 ABG HCO3 ABG O2 Saturation ABG Base Excess VBG pH VBG pCO2 VBG pO2 VBG HCO3 VBG O2 Saturation VBG Base Excess Oxygen Given Sodium Potassium Chloride Carbon Dioxide Anion Gap BUN Creatinine Estim Creat Clear Calc Estimated GFR POC Glucose Random Glucose Lactic Acid 9.3 H* Lactic Acid Fup @ 2Hr Lactic Acid Fup @ 4Hr Calcium Magnesium Total Bilirubin AST ALT Alkaline Phosphatase Ammonia Total Protein Albumin Procalcitonin Proteinase 3 (PR3) Ab Myeloperoxidase Ab Complement C3 Complement C4 Microbiology Microbiology Results: Microbiology 07/04/20 00:18 Urine Catheterized - Gómez Catheter Urine Culture - Preliminary Yeast 07/03/20 15:35 Paracentesis Fluid Gram Stain - Final 07/03/20 15:35 Paracentesis Fluid Anaerobic Culture - Preliminary No growth to date. 07/03/20 15:35 Paracentesis Fluid Body Fluid Culture - Final No growth after 2 days 06/29/20 14:58 Blood - Venous Blood Culture - Final No growth after 5 days. 06/29/20 14:58 Blood - Venous Blood Culture - Final No growth after 5 days. 07/03/20 11:06 Blood - Venous Blood Culture - Preliminary No growth after 24 hours. 07/03/20 11:24 Blood - Venous Blood Culture - Preliminary No growth after 24 hours. Progress Note: A&P Time Spent With Patient Time: Total time spent is greater than 50% in coordination of care (as documented) at patient's floor/unit and/or counseling patient: Total time spent with greater than 50% in coordination of care (as documented) at patient's floor/unit and/or counseling patient:: 0
[2020-07-05 12:27] LABS: IgA 241 mg/dL (70-320); IgG 2276 mg/dL (600-1540); IgM 352 mg/dL (50-300)
--- NOTE | 2020-07-05 13:27 | PC.NURSE ---
[facility] was notified at 1210. The patient was declined.
== END 2020-07-05 12:30 | disposition expired | DRG 253 ==
LOC: HO.ED 14:51 → HO.EDOVER 16:56 → HO.S3 06-30 16:39 → HO.ICU 07-03 07:53
PROVIDERS: Family Medicine; Internal Medicine Gastroenterology; Internal Medicine Nephrology; Nurse Practitioner Acute Care; Physician Assistant Medical; Admitting Provider Internal Medicine; Emergency Provider Emergency Medicine; PCP Physician Assistant; Visit Provider Anesthesiology
PROC: 0DJ08ZZ Inspection of Upper Intestinal Tract, Via Natural or Artificial Opening Endoscopic (ICD-10-PCS; CPT 43235; principal; 2020-07-01 10:50)
DX: K31.811 Angiodysplasia of stomach and duodenum with bleeding (principal); N17.0 Acute kidney failure with tubular necrosis; J18.9 Pneumonia, unspecified organism; I13.0 Hypertensive heart and chronic kidney disease with heart failure and stage 1 through stage 4 chronic kidney disease, or unspecified chronic kidney disease; I42.8 Other cardiomyopathies; R18.8 Other ascites; I50.22 Chronic systolic (congestive) heart failure; D62 Acute posthemorrhagic anemia; K76.6 Portal hypertension; K74.3 Primary biliary cirrhosis; I85.10 Secondary esophageal varices without bleeding; F39 Unspecified mood [affective] disorder; E03.9 Hypothyroidism, unspecified; K31.89 Other diseases of stomach and duodenum; Z20.822 Contact with and (suspected) exposure to COVID-19; N18.9 Chronic kidney disease, unspecified; Z95.818 Presence of other cardiac implants and grafts; Z87.891 Personal history of nicotine dependence; Z88.2 Allergy status to sulfonamides; Z79.890 Hormone replacement therapy; Z79.899 Other long term (current) drug therapy
CPT/HCPCS: 36415; 49083; 71045; 71250; 74176; 76770; 78580; 80048; 80053; 80076; 81001; 82140; 82272; 82784; 82803; 82945; 82947; 83605; 83615; 83735; 83880; 84100; 84145; 84157; 84300; 84484; 85014; 85018; 85025; 85379; 85610; 86021; 86140; 86160; 86334; 86769; 86850; 86900; 86901; 86923; 87040; 87070; 87071; 87073; 87086; 87088; 87205; 87449; 87633; 87635; 89051; 90999; 93005; 93306; 93970; 93971; 96374; 99285; A9540; C1758; J0610; J1160; J1170; J1956; J2060; J2405; J2765; J3010; P9016; P9047